=== PATIENT | female | born 1965 | race Caucasian/White ===

== ENCOUNTER 2017-07-24 10:28 | Emergency (ER) | payer OTHER ==
[2017-07-24 10:35] VITALS: BP 127/70
--- NOTE | 2017-07-24 11:04 | UC ---
Throat Pain/Nasal Sky HPI - HPI Summary HPI Summary: ONE WEEK OF PRODUCTIVE COUGH WITH FACIAL PRESSURE, CONGESTION, CHILLS. POST NASAL DRIP. CONCERN FOR SINUS INFECTION - History of Current Complaint Chief Complaint: UCRespiratory Stated Complaint: SINUS Time Seen by Provider: 07/24/17 10:40 Hx Obtained From: Patient Onset/Duration: Gradual Onset, Lasting Weeks, Still Present Severity: Moderate Cough: Productive Associated Signs & Symptoms: Positive: Sinus Discomfort, Nasal Discharge - Epiglottits Risk Factors Epiglottis Risk Factors: Negative - Allergies/Home Medications Allergies/Adverse Reactions: Allergies Allergy/AdvReac Type Severity Reaction Status Date / Time No Known Allergies Allergy Verified 07/24/17 10:35 Home Medications: Home Medications Metoprolol Tartrate TAB* [Lopressor TAB*] 25 mg PO DAILY 07/24/17 [History Confirmed 07/24/17] PMH/Surg Hx/FS Hx/Imm Hx Previously Healthy: Yes - Surgical History Surgical History: Yes Surgery Procedure, Year, and Place: tubal ligation. bladder mesh for urinary incontinence - Family History Known Family History: Negative: Respiratory Disease - Social History Occupation: Employed Full-time Lives: With Family Alcohol Use: Rare Substance Use Type: None Smoking Status (MU): Heavy Every Day Tobacco Smoker Type: Cigarettes Amount Used/How Often: 1/2 - 1 ppd Length of Time of Smoking/Using Tobacco: 30 years Household Exposure Type: Cigarettes Cessation Counseling: Patient Advised to Stop - Immunization History Most Recent Influenza Vaccination: no Most Recent Tetanus Shot: unknown Review of Systems Constitutional: Chills Skin: Negative Eyes: Negative ENT: Nasal Discharge, Sinus Congestion, Sinus Pain/Tenderness Respiratory: Cough Cardiovascular: Negative Gastrointestinal: Negative Genitourinary: Negative Motor: Negative Neurovascular: Negative Musculoskeletal: Negative Neurological: Negative Psychological: Negative All Other Systems Reviewed And Are Negative: Yes Physical Exam Triage Information Reviewed: Yes Appearance: Well-Appearing, No Pain Distress, Well-Nourished Vital Signs: Initial Vital Signs Temp 98.8 F 07/24/17 10:31 Pulse 68 07/24/17 10:31 Resp 16 07/24/17 10:31 BP 127/70 07/24/17 10:31 Pulse Ox 98 07/24/17 10:31 Vital Signs Reviewed: Yes Eye Exam: Normal ENT: Positive: TM bulging, TM dull Dental Exam: Normal Neck exam: Normal Neck: Positive: Supple, Nontender, No Lymphadenopathy Respiratory Exam: Normal Respiratory: Positive: Chest non-tender, Lungs clear, Normal breath sounds, No respiratory distress, No accessory muscle use Cardiovascular Exam: Normal Cardiovascular: Positive: RRR, No Murmur, Pulses Normal Abdominal Exam: Normal Musculoskeletal Exam: Normal Neurological Exam: Normal Psychological Exam: Normal Skin Exam: Normal Throat Pain/Nasal Course/Dx - Differential Dx/Diagnosis Differential Diagnosis/HQI/PQRI: Pharyngitis, Sinusitis, URI Provider Diagnoses: SINUSITIS Discharge - Discharge Plan Condition: Stable Disposition: HOME Prescriptions: Amoxicillin/Clavulanate TAB* [Augmentin TAB 875*] 875 mg PO BID #20 tab Patient Education Materials: Sinusitis (ED) Referrals: Dianne Lucero MD [Primary Care Provider] -
== END 2017-07-24 11:00 | disposition home or self-care (01) ==
LOC: UCCORT 10:28
DX: J32.9 Chronic sinusitis, unspecified (principal); F17.210 Nicotine dependence, cigarettes, uncomplicated
CPT/HCPCS: 99212; G0463

== ENCOUNTER 2018-08-28 19:23 | Emergency (ER) | payer OTHER ==
[2018-08-28 19:52] VITALS: BP 149/82
--- NOTE | 2018-08-28 20:30 | UC ---
Respiratory Complaint HPI - HPI Summary HPI Summary: Pt c/o cough, nasal congestion, generalized malaise X 1 week. Pt states that her cough, and chest congestion are worsening - History of Current Complaint Chief Complaint: UCGeneralIllness Stated Complaint: COUGH,CONGESTION Time Seen by Provider: 08/28/18 20:14 Hx Obtained From: Patient Hx Last Menstrual Period: NONE ?: No Onset/Duration: Gradual Onset, Lasting Days, Still Present, Worse Since Timing: Constant Severity Initially: Mild Severity Currently: Moderate Pain Intensity: 5 Character: Cough: Nonproductive Aggravating Factors: Deep Breaths, Recumbent Position Alleviating Factors: Nothing Associated Signs And Symptoms: Positive: Chills, URI, Nasal Congestion - Risk Factors Pulmonary Embolism Risk Factors: Smoking Cardiac Risk Factors: Smoking Pseudomonas Risk Factors: Negative Tuberculosis Risk Factors: Negative - Allergies/Home Medications Allergies/Adverse Reactions: Allergies Allergy/AdvReac Type Severity Reaction Status Date / Time No Known Allergies Allergy Verified 08/28/18 19:38 Home Medications: Home Medications Benzonatate CAP* [Tessalon 100 MG CAP*] 100 mg PO TID PRN 08/28/18 [History Confirmed 08/28/18] Chlorphenir/Phenyleph/Aspirin [Monik-[place] Plus Cold Tab Eff] 1 tab PO ONCE PRN 08/28/18 [History Confirmed 08/28/18] Dm/Acetaminophen/Doxylamine [Nighttime Cold-Flu Liquid] 2.5 ml PO BEDTIME [History Confirmed 08/28/18] Ergocalciferol (Vitamin D2) [Vitamin D2] 50,000 unit PO SEE INSTRUCTIONS [History Confirmed 08/28/18] PMH/Surg Hx/FS Hx/Imm Hx Previously Healthy: Yes - Surgical History Surgical History: Yes Surgery Procedure, Year, and Place: tubal ligation. bladder mesh for urinary incontinence - Family History Known Family History: Positive: Cardiac Disease Negative: Respiratory Disease - Social History Occupation: Employed Full-time Lives: With Family Alcohol Use: Rare Substance Use Type: None Smoking Status (MU): Heavy Every Day Tobacco Smoker Type: Cigarettes Amount Used/How Often: LESS THAN 1/2 PPD Length of Time of Smoking/Using Tobacco: 30 years Have You Smoked in the Last Year: Yes Household Exposure Type: Cigarettes - Immunization History Most Recent Influenza Vaccination: no Most Recent Tetanus Shot: unknown Vaccination Up to Date: No Review of Systems Constitutional: Chills, Fatigue Skin: Negative Eyes: Negative ENT: Sinus Congestion Respiratory: Shortness Of Breath, Cough Cardiovascular: Negative Gastrointestinal: Negative Genitourinary: Negative Motor: Negative Neurovascular: Negative Musculoskeletal: Negative Neurological: Negative Psychological: Negative Is Patient Immunocompromised?: No All Other Systems Reviewed And Are Negative: Yes Physical Exam Triage Information Reviewed: Yes Appearance: Ill-Appearing Vital Signs: Initial Vital Signs Temp 98.3 F 08/28/18 19:44 Pulse 71 08/28/18 19:44 Resp 20 08/28/18 19:44 BP 149/82 08/28/18 19:44 Pulse Ox 98 08/28/18 19:44 Vital Signs Reviewed: Yes Eye Exam: Normal ENT Exam: Other ENT: Positive: Nasal congestion Dental Exam: Normal Neck exam: Normal Respiratory: Positive: Decreased breath sounds Cardiovascular Exam: Normal Musculoskeletal Exam: Normal Neurological Exam: Normal Psychological Exam: Normal Skin Exam: Normal UC Diagnostic Evaluation - Laboratory O2 Sat by Pulse Oximetry: 98 Respiratory Course/Dx - Differential Dx/Diagnosis Differential Diagnosis/HQI/PQRI: Bronchitis, Influenza Provider Diagnoses: Bronchitis Discharge - Sign-Out/Discharge Documenting (check all that apply): Patient Departure All imaging exams completed and their final reports reviewed: No Studies - Discharge Plan Condition: Stable Disposition: HOME Prescriptions: Albuterol HFA INHALER* [Ventolin HFA Inhaler*] 1 - 2 puff INH Q4H PRN #1 mdi PRN Reason: Sob/Wheezing Azithromycin TAB* [Zithromax TAB (Z-CHARY) 250 mg #6 tabs] 2 tab PO .TODAY, THEN 1 DAILY #1 chary Benzonatate CAP* [Tessalon 100 MG CAP*] 100 mg PO Q8H PRN #30 cap PRN Reason: Cough predniSONE TAB* [Deltasone 10 MG TAB*] 30 mg PO DAILY #12 tab Patient Education Materials: Acute Bronchitis (ED) Referrals: Dianne Lucero MD [Primary Care Provider] - If Needed - Billing Disposition and Condition Condition: STABLE Disposition: Home
== END 2018-08-28 20:40 | disposition home or self-care (01) ==
LOC: UCCORT 19:23
DX: J40 Bronchitis, not specified as acute or chronic (principal); F17.210 Nicotine dependence, cigarettes, uncomplicated
CPT/HCPCS: 99212; G0463

== ENCOUNTER 2019-02-15 17:09 | Emergency (ER) | payer OTHER ==
--- OUTSIDE RECORDS SUMMARY | 2019-02-15 17:18 | XMS REPORT | Continuity of Care Document ---
:1965 External Reference #:[id number] Author Name Mirian Levi Care Team Providers Name Role Phone Dianne Lucero MD Care Team Information Echocardiologist Unavailable Dianne Lucero MD Primary Care Physician Unavailable Payers Date Identification Numbers Payment Provider Subscriber Effective: 2016 Policy Number: [id number] [employer] Medicaid Luz Lara PayID: [id number] [address] [place] [address] Advance Directives Description No Information Available Problems Date Description Provider Status Onset: 12/29/2012 Hypertrophic Obstructive Sam Spain M.D., Active Cardiomyopathy FACC Onset: 04/23/2013 Tobacco user Hao Quintana Active M.[place]. 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 Onset: 12/05/2015 Tinnitus, bilateral Dianne Lucero MD Active Onset: 12/05/2015 Disorder of thyroid gland Dianne Lucero MD Active Onset: 12/05/2015 Obstructive hypertrophic Dianne Lucero MD Active cardiomyopathy Onset: 12/23/2014 [place] thyroiditis Nathaniel Jorgensen MD Active Onset: 11/15/2014 Essential hypertension Nathaniel Jorgensen MD Active Onset: 11/04/2012 Adult health examination Aliza Mims PA Active Onset: 11/04/2012 Hypothyroidism Aliza Mims PA Active Onset: 11/04/2012 Elevated blood-pressure reading Aliza Mims PA Active without diagnosis of hypertension Onset: 11/04/2012 Anxiety state Aliza Mims PA Active Onset: 11/04/2012 Panic disorder 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 General No family members have HCMP Mother Mitral Valve Prolapse Mother Breast Cancer Children 3 First Son Pericarditis and "valve problems" Siblings 4 Grandchildren 2 Paternal Grandmother Stomach Cancer Social History Type Date Description Comments Sex Unknown Marital Status Lives With Significant Other Home Environment Lives With Diet Patient follows no dietary restrictions Occupation Currently Working Work Status Currently Working ADL's/IADL's Independent with all ADL's Cigarette Use Pack Years - 30 Tobacco Use Start: Unknown currently smokes 1/2 Pack Daily Smoking Status Reviewed: 01/13/19 currently smokes 1/2 Pack Daily Smokeless Tobacco Never Used Smokeless Tobacco ETOH Use Rarely consumes alcohol Tobacco Use Start: Unknown Light tobacco smoker (10 or trying to quit fewer cigarettes/day) Recreational Drug Use Denies Drug Use Allergies, Adverse Reactions, Alerts Description No Known Drug Allergies Medications Medication Date Status Form Strength Qnty SIG Indications Ordering Provider Levothyroxine 01/13/20 Active Tablets 25mcg 30tab 1 tab by Jazmine, Sodium 19 s mouth every MD Dianne day Nicotrol 01/13/20 Active Inhaler 10mg 168un inhale and F17.210 Jazmine, 19 its use up to 6 MD Dianne cartridges a day Vitamin D 12/10/19 Active Capsules [id number] 4caps take 1 Jazmine, (Ergocalciferol 18 capsule by MD Dianne ) mouth every week Metoprolol 11/21/20 Active Tablets 25mg 30tab 1 by mouth E55.9 Last, Succinate ER 16 ER 24HR s every Norma evening Hugh , MSN, SOLDERING TECHNICIAN Bupropion HCL 01/20/20 Hx Tablets 150mg 60tab 1 tab by Jazmine, ER (Smoking 18 - ER 12HR s mouth every MD Dianne Det) 07/09/20 day x 7 18 days then 1 tab by mouth twice a day Amoxicillin 01/20/20 Hx Capsules 500mg 20cap 1 tab by Jazmine, 18 - s mouth twice MD Dianne 07/09/20 a day x 10 18 days Bupropion HCL 12/10/19 Hx Tablets 150mg 60tab 1 tab by Jazmine, ER (Smoking 18 - ER 12HR s mouth every MD Dianne Det) 01/20/20 day x3 days 18 then 1 tab by mouth twice a day Golytely 06/21/20 Hx Solution 236gm 4000m drink half Z12.11 Srinivasan 17 - Rec l the evening MD Gautam Unknown before and half the morning of the procedure (1 cup every 10') Dulcolax 06/21/20 Hx Tablets 5mg 4tabs 4 tablets Z12.11 Srinivasan 17 - DR taken a 8pm MD Gautam Unknown the day before the procedure Magnesium 06/21/20 Hx Solution 1.745GM/3 296ml 1 bottle po Z12.11 Srinivasan Citrate 17 - 0ML x one as MD Gautam Unknown directed Hyoscyamine 06/21/20 Hx Tablets 0.125mg 90tab 1 tab by R10.9 Young Sulfate 17 - s mouth three MD Gautam Unknown times a day as needed for abd pain Tessalon Perles 09/13/20 Hx Capsules 100mg 30cap 1 tab by Jazmine, 16 - s mouth every MD Dianne Unknown 8 hours as needed for cough Nasacort 09/13/20 Hx Aerosol 55mcg/Act 32.4m 2 sprays Jazmine, Allergy 24HR 16 - l both MD Dianne Unknown nostrils every day prn Chantix 04/10/20 Hx Tablets 1mg 60tab continuatio F17.200 Hakeementrudy 16 - s n packs - , Sam 12/10/19 1mg by M., M.D., 18 mouth daily FACC Verapamil HCL 03/15/20 Hx Caps ER 120mg 90cap 1 by mouth E55.9 Last, ER 16 - 24HR s every day Norma 10/15/20 Hugh Jasso , MSN, SOLDERING TECHNICIAN Vitamin D 03/12/20 Hx Capsules 2000Unit 1 by mouth Jazmine, 16 - every day MD Dianne Unknown Bisoprolol 03/12/20 Hx Tablets 5mg 30tab 1 tab by E55.9 Last, Fumarate 16 - s mouth every Norma 03/15/20 evening Hugh Jasso , MSN, SOLDERING TECHNICIAN Amoxicillin/Cla 02/07/20 Hx Tablets 875-125mg 20tab Every 12 Unknown vulanate 16 - s Hours Potassium 02/21/20 16 Benzonatate 02/07/20 Hx Capsules 200mg 20cap Every 8 Unknown 16 - s Hours as Unknown Needed prn Cough Metoprolol 01/30/20 Hx Tablets 25mg 60tab 1 by mouth E55.9 Last, Tartrate 16 - s Q hs Onrma 03/12/20 Hugh Jasso , MSN, SOLDERING TECHNICIAN Ergocalciferol 12/13/19 Hx Capsules [id number] 12cap 1 tab by E55.9 Jazmine, 16 - s mouth every MD Dianne Unknown week for 12 weeks then stop and take maintenance over the counter Vitamin D-400 12/05/19 Hx Tablets 400Unit 2 by mouth Jazmine, 16 - every day MD Dianne Unknown Lactase Enzyme 12/05/19 Hx Tablets 9000Unit 90tab 1 tab by Jazmine, Fast Acting 16 - s mouth three MD Dianne Unknown times a day as needed with dairy containing meals Paroxetine HCL 05/16/20 Hx Tablets 10mg 90tab 1 by mouth [place] 15 - s every day os, Unknown MD Nathaniel No Active 01/17/20 Hx Unknown Medications - 01/17/20 15 Vitamin D-3 08/25/20 Hx Tablets 5000Unit 90tab 1 by mouth Castellan 14 - s every day os, 12/05/19 Romero Armstrong MD Levothyroxine Hx Tablets 50mcg 60tab 1 po qd Unknown Sodium 00 - s Unknown Vitamin D Hx Capsules [id number] 1 po qd Unknown 00 - 12/05/19 16 Vitamin D Hx Capsules 50,000Uni 60cap 1 po q week Unknown 00 - ts s Unknown Ra Vitamin D-3 Hx Capsules 5000Unit Unknown - 12/05/19 16 Vitamin D3 Hx Tablets 2000Unit Once Daily Unknown 00 - Unknown Prempro Hx Tablets 0.3-1.5mg 1 daily Oh, 00 - In-Alyssa, 01/13/20 19 Immunizations CPT Code Status Date Vaccine Lot # [id number] Given 12/10/2017 Pneumovax Injection [id number] Given 12/10/2017 Influenza Virus Vaccine Quadrivalent Iiv4 [place] [id number] [id number] Given 12/10/2016 Influenza Virus Vaccine Split Virus Use For [id number] Individual 3Yr Older 18825 Given 05/07/2016 Tdap injection [id number] Given 12/05/2015 Influenza Vaccine (Fluzone) Age 3 And Older [id number] Vital Signs Date Vital Result Comment 01/13/2019 10:14am BP Systolic Sitting Left Arm 114 mmHg BP Diastolic Sitting Left Arm 82 mmHg Body Temperature 97.6 F Heart Rate 67 /min Respiratory Rate 16 /min Height 64 inches 5'4" Weight 168.00 lb BMI (Body Mass Index) 28.8 kg/m2 BSA (Body Surface Area) 1.82 m2 [place] body weight in kilograms 54 kg O2 % BldC Oximetry 96 % Ra 07/14/2018 9:30am BP Systolic Sitting Right Arm 130 mmHg BP Diastolic Sitting Right Arm 80 mmHg Heart Rate 64 /min Respiratory Rate 16 /min Height 64 inches 5'4" Weight 162.00 lb BMI (Body Mass Index) 27.8 kg/m2 BSA (Body Surface Area) 1.79 m2 [place] body weight in kilograms 54 kg 07/09/2018 12:56pm BP Systolic 122 mmHg BP Diastolic 72 mmHg Body Temperature 97.6 F Heart Rate 54 /min Respiratory Rate 18 /min Height 64 inches 5'4" Weight 162.00 lb BMI (Body Mass Index) 27.8 kg/m2 BSA (Body Surface Area) 1.79 m2 [place] body weight in kilograms 54 kg O2 % BldC Oximetry 97 % 01/20/2018 10:34am BP Systolic Sitting Right Arm 153 mmHg BP Diastolic Sitting Right Arm 88 mmHg Body Temperature 98.8 F Heart Rate 79 /min Height 64 inches 5'4" Weight 165.00 lb BMI (Body Mass Index) 28.3 kg/m2 BSA (Body Surface Area) 1.80 m2 [place] body weight in kilograms 54 kg 12/16/2017 9:15am BP Systolic Sitting Right Arm 132 mmHg BP Diastolic Sitting Right Arm 84 mmHg Heart Rate 68 /min Respiratory Rate 14 /min Height 64 inches 5'4" Weight 164.00 lb BMI (Body Mass Index) 28.1 kg/m2 BSA (Body Surface Area) 1.80 m2 [place] body weight in kilograms 54 kg 12/10/2017 9:16am BP Systolic Sitting Right Arm 128 mmHg BP Diastolic Sitting Right Arm 78 mmHg Body Temperature 98.3 F Heart Rate 58 /min Height 64 inches 5'4" Weight 164.00 lb BMI (Body Mass Index) 28.1 kg/m2 BSA (Body Surface Area) 1.80 m2 [place] body weight in kilograms 54 kg 06/21/2017 8:41am BP Systolic Sitting Left Arm 118 mmHg BP Diastolic Sitting Left Arm 72 mmHg Heart Rate 54 /min Respiratory Rate 16 /min Height 64 inches 5'4" Weight 161.00 lb BMI (Body Mass Index) 27.6 kg/m2 BSA (Body Surface Area) 1.78 m2 [place] body weight in kilograms 54 kg 06/10/2017 9:15am BP Systolic 136 mmHg BP Diastolic 77 mmHg Body Temperature 97.4 F Heart Rate 54 /min Respiratory Rate 16 /min Height 64 inches 5'4" Weight 160.00 lb BMI (Body Mass Index) 27.5 kg/m2 BSA (Body Surface Area) 1.78 m2 [place] body weight in kilograms 54 kg O2 % BldC Oximetry 96 % 05/13/2017 9:48am BP Systolic Sitting Right Arm 132 mmHg BP Diastolic Sitting Right Arm 80 mmHg Heart Rate 55 /min Respiratory Rate 18 /min Height 64 inches 5'4" Weight 160.00 lb BMI (Body Mass Index) 27.5 kg/m2 BSA (Body Surface Area) 1.78 m2 [place] body weight in kilograms 54 kg 12/10/2016 10:18am BP Systolic 122 mmHg BP Diastolic 74 mmHg Heart Rate 56 /min Height 64 inches 5'4" Weight 160.00 lb BMI (Body Mass Index) 27.5 kg/m2 BSA (Body Surface Area) 1.78 m2 11/12/2016 8:52am BP Systolic Sitting Left Arm 126 mmHg BP Diastolic Sitting Left Arm 78 mmHg Heart Rate 52 /min Respiratory Rate 16 /min Height 64 inches 5'4" Weight 160.00 lb BMI (Body Mass Index) 27.5 kg/m2 BSA (Body Surface Area) 1.78 m2 10/15/2016 8:37am BP Systolic Sitting Left Arm 136 mmHg BP Diastolic Sitting Left Arm 82 mmHg Heart Rate 60 /min Respiratory Rate 16 /min Height 64 inches 5'4" Weight 160.00 lb BMI (Body Mass Index) 27.5 kg/m2 BSA (Body Surface Area) 1.78 m2 09/13/2016 2:33pm BP Systolic Sitting Right Arm 122 mmHg BP Diastolic Sitting Right Arm 72 mmHg Body Temperature 99.1 F Heart Rate 68 /min Height 64 inches 5'4" Weight 161.00 lb BMI (Body Mass Index) 27.6 kg/m2 BSA (Body Surface Area) 1.78 m2 O2 % BldC Oximetry 92 % 05/07/2016 8:49am BP Systolic Standing Resting Right Arm 142 mmHg BP Diastolic Standing Resting Right Arm 82 mmHg Height 64 inches 5'4" Weight 164.50 lb BMI (Body Mass Index) 28.2 kg/m2 BSA (Body Surface Area) 1.80 m2 04/10/2016 8:30am BP Systolic Sitting Left Arm 140 mmHg BP Diastolic Sitting Left Arm 74 mmHg Heart Rate 68 /min Respiratory Rate 16 /min Height 64 inches 5'4" Weight 169.00 lb BMI (Body Mass Index) 29.0 kg/m2 BSA (Body Surface Area) 1.82 m2 03/12/2016 8:23am BP Systolic Sitting Left Arm 120 mmHg BP Diastolic Sitting Left Arm 78 mmHg Heart Rate 64 /min Respiratory Rate 16 /min Height 64 inches 5'4" Weight 167.00 lb BMI (Body Mass Index) 28.7 kg/m2 BSA (Body Surface Area) 1.81 m2 01/30/2016 9:01am BP Systolic Sitting Left Arm 110 mmHg BP Diastolic Sitting Left Arm 62 mmHg Heart Rate 74 /min Height 64 inches 5'4" Weight 168.00 lb BMI (Body Mass Index) 28.8 kg/m2 BSA (Body Surface Area) 1.82 m2 12/05/2015 1:33pm BP Systolic Sitting Left Arm 134 mmHg BP Diastolic Sitting Left Arm 70 mmHg Heart Rate 62 /min Height 64.5 inches 5'4.50" Weight 166.31 lb BMI (Body Mass Index) 28.1 kg/m2 BSA (Body Surface Area) 1.82 m2 O2 % BldC Oximetry 98 % 05/16/2015 8:51am BP Systolic 110 mmHg BP Diastolic 80 mmHg Weight 158.00 lb 01/17/2015 8:46am BP Systolic Sitting Right Arm 98 mmHg BP Diastolic Sitting Right Arm 60 mmHg Heart Rate 60 /min Respiratory Rate 16 /min Height 64 inches 5'4" Weight 155.00 lb BMI (Body Mass Index) 26.6 kg/m2 BSA (Body Surface Area) 1.76 m2 12/23/2014 1:45pm BP Systolic 110 mmHg BP Diastolic 68 mmHg Weight 158.00 lb 11/15/2014 3:57pm BP Systolic 100 mmHg BP Diastolic 74 mmHg Body Temperature 97.7 F Heart Rate 64 /min Respiratory Rate 16 /min Height 63.50 inches Weight 155.00 lb BMI (Body Mass Index) 27.0 kg/m2 08/25/2014 9:56am BP Systolic 90 mmHg BP Diastolic 62 mmHg Weight 156.00 lb 02/08/2014 8:08am BP Systolic 116 mmHg BP Diastolic 74 mmHg Weight 154.00 lb 01/06/2014 9:05am BP Systolic Sitting Left Arm 116 mmHg BP Diastolic Sitting Left Arm 82 mmHg Heart Rate 80 /min Respiratory Rate 16 /min Height 64 inches 5'4" Weight 157.00 lb BMI (Body Mass Index) 26.9 kg/m2 BSA (Body Surface Area) 1.77 m2 11/09/2013 2:50pm BP Systolic 100 mmHg BP Diastolic 80 mmHg Body Temperature 97.5 F Heart Rate 60 /min Respiratory Rate 14 /min Height 63.75 inches Weight 151.00 lb BMI (Body Mass Index) 26.1 kg/m2 07/06/2013 1:36pm Weight 151.00 lb 07/06/2013 8:39am BP Systolic Sitting Right Arm 120 mmHg BP Diastolic Sitting Right Arm 74 mmHg Heart Rate 70 /min Respiratory Rate 16 /min Height 64 inches 5'4" Weight 152.00 lb BMI (Body Mass Index) 26.1 kg/m2 BSA (Body Surface Area) 1.74 m2 04/23/2013 8:33am BP Systolic Sitting Right Arm 114 mmHg BP Diastolic Sitting Right Arm 66 mmHg Heart Rate 61 /min Respiratory Rate 18 /min Height 64 inches 5'4" Weight 152.00 lb BMI (Body Mass Index) 26.1 kg/m2 BSA (Body Surface Area) 1.74 m2 04/13/2013 11:30am BP Systolic 108 mmHg BP Diastolic 80 mmHg Weight 152.00 lb 12/29/2012 10:07am BP Systolic Sitting Right Arm 130 mmHg BP Diastolic Sitting Right Arm 78 mmHg Heart Rate 64 /min Respiratory Rate 16 /min Height 64 inches 5'4" Weight 155.00 lb BMI (Body Mass Index) 26.6 kg/m2 11/11/2012 9:45am BP Systolic Sitting Right Arm 126 mmHg BP Diastolic Sitting Right Arm 68 mmHg Heart Rate 61 /min Respiratory Rate 16 /min Height 64 inches 5'4" Weight 151.00 lb BMI (Body Mass Index) 25.9 kg/m2 10/28/2012 8:37am BP Systolic 138 mmHg BP Diastolic 90 mmHg Body Temperature 98.6 F Heart Rate 78 /min Respiratory Rate 12 /min Height 64 inches Weight 155.00 lb BMI (Body Mass Index) 26.6 kg/m2 Results Test Date Facility Test Result H/L Range Note Comprehensive Metabolic 01/06/2019 [facility] Glucose 106 mg/dL N 74-106 1 Panel [address] [place], [place] [id number] [phone] BUN 22 mg/dL High 7-18 Creatinine 0.9 mg/dL 0.6-1.3 Glom Filtration Rate, Estimate >60 mL/min >60 If >60 mL/min >60 2 BUN/Creat 24.4 ratio Sodium 141 mmol/L N 136-145 Potassium 4.4 mmol/L N 3.5-5.1 Chloride 109 mmol/L High 98-107 Carbon Dioxide 25 mmol/L N 21-32 Anion Gap 7 mEq/L Low 8-16 Calcium 8.6 mg/dL N 8.5-10.1 Total Protein 7.1 g/dL N 6.4-8.2 Albumin 3.9 g/dL N 3.4-5.0 Globulin 3.2 g/dL N 1.9-4.3 Alb/Glob 1.2 ratio Bilirubin,Total 0.5 mg/dL N 0.2-1.0 Sgot/Ast 17 U/L N 15-37 SGPT/Alt 22 U/L N 12-78 Alkaline Phosphatase 55 U/L N 45-117 CBS W/Automated Diff 01/06/2019 [facility] White Blood 6.2 K/uL N 3.1-10.[address] [place] [address] [phone] Red Blood Count 5.01 M/uL N 3.90-5.40 Hemoglobin 15.1 gm/dL N 11.6-15.8 Hematocrit 44.7 % N 36.0-46.1 Mean Cell Volume 89.2 fl N 80.9-99.0 Mean Corpuscular HGB 30.1 pg N 25.9-32.7 Mean Corpuscular HGB Conc 33.8 g/dL N 30.8-34.3 Platelet Count 150 K/uL Low 155-360 Red Cell Distri Width SD 42.1 fl N 36-47 Red Cell Distri Width %CV 13.3 % N 11.7-14.4 Mean Platelet Volume 11.7 fL N 8.9-12.4 Neut% 51.8 % N 40.4-72.8 Lymph % 36.5 % N 20.0-42.0 [place] % 9.9 % N 4.3-13.2 Eo% 1.5 % N 0.0-6.6 Bas% 0.3 % N 0.0-1.1 Neut# 3.21 K/uL N 1.8-7.0 Lymph # 2.26 K/uL N 1.0-4.0 [place] # 0.61 K/uL N 0.3-0.9 Eos # 0.09 K/uL N 0.0-0.5 Baso # 0.02 K/uL N 0.0-0.1 Laboratory test 01/06/2019 [facility] Thyroid Stim 3.79 uIU/mL N 0.30-4.[address] [place] [address] [phone] Free T4 0.93 ng/dL N 0.76-1.46 Vitamin D,25-Hydroxy 15.7 ng/mL Low 30.0-100.0 3 Laboratory 06/06/2018 [facility] Vitamin 21.1 Low 30.0-100.0 4, 5 test finding [address] D,25-Hydroxy ng/[place] [address] [phone] Free T4 1.03 ng/dL N 0.76-1.46 Thyroid Stim Hormone 2.37 uIU/mL N 0.30-4.20 CBS W/Automated Diff 06/06/2018 [facility] White Blood 6.8 K/uL N 3.1-10.[address] [place] [address] [phone] Red Blood Count 4.89 M/uL N 3.90-5.40 Hemoglobin 15.3 gm/dL N 11.6-15.8 Hematocrit 43.9 % N 36.0-46.1 Mean Cell Volume 89.8 fl N 80.9-99.0 Mean Corpuscular HGB 31.3 pg N 25.9-32.7 Mean Corpuscular HGB Conc 34.9 g/dL High 30.8-34.3 Platelet Count 140 K/uL Low 155-360 Red Cell Distri Width SD 42.4 fl N 3-47 Red Cell Distri Width %CV 13.2 % N 11.7-14.4 Mean Platelet Volume 12.6 fL High 8.9-12.4 Neut% 56.5 % N 40.4-72.8 Lymph % 34.0 % N 20.0-42.0 [place] % 8.0 % N 4.3-13.2 Eo% 1.2 % N 0.0-6.6 Bas% 0.3 % N 0.0-1.1 Neut# 3.84 K/uL N 1.8-7.0 Lymph # 2.31 K/uL N 1.0-4.0 [place] # 0.54 K/uL N 0.3-0.9 Eos # 0.08 K/uL N 0.0-0.5 Baso # 0.02 K/uL N 0.0-0.1 Comprehensive Metabolic 06/06/2018 [facility] Glucose 97 mg/dL N 74-[address] [place] [address] [phone] BUN 16 mg/dL N 7-18 Creatinine 0.7 mg/dL N 0.6-1.3 Glom Filtration Rate, Estimate >60 mL/min >60 If >60 mL/min >60 6 BUN/Creat 22.8 ratio Sodium 141 mmol/L N 136-145 Potassium 4.3 mmol/L N 3.5-5.1 Chloride 109 mmol/L High 98-107 Carbon Dioxide 26 mmol/L N 21-32 Anion Gap 6 mEq/L Low 8-16 Calcium 8.7 mg/dL N 8.5-10.1 Total Protein 6.8 g/dL N 6.4-8.2 Albumin 4.1 g/dL N 3.4-5.0 Globulin 2.7 g/dL N 1.9-4.3 Alb/Glob 1.5 ratio Bilirubin,Total 0.5 mg/dL N 0.2-1.0 Sgot/Ast 15 U/L N 15-37 SGPT/Alt 23 U/L N 12-78 Alkaline Phosphatase 48 U/L N 45-117 LDL Cholesterol Profile 06/06/2018 [facility] Cholesterol 159 mg/dL <200 7 [address] [place], [place] [id number] [phone] Triglycerides 112 mg/dL <150 8 HDL Cholesterol 46 mg/dL >40 9 LDL-Cholesterol 91 mg/dL < 100 10 Comprehensive Metabolic 12/03/2017 [facility] Glucose 102 mg/dL N 74-106 11 Panel [address] [place], [place] [id number] [phone] BUN 19 mg/dL High 7-18 Creatinine 0.8 mg/dL N 0.6-1.3 Glom Filtration Rate, Estimate >60 mL/min >60 If >60 mL/min >60 12 BUN/Creat 23.7 ratio Sodium 142 mmol/L N 136-145 Potassium 4.3 mmol/L N 3.5-5.1 Chloride 107 mmol/L N 98-107 Carbon Dioxide 27 mmol/L N 21-32 Anion Gap 8 mEq/L N 8-16 Calcium 9.3 mg/dL N 8.5-10.1 Total Protein 7.0 g/dL N 6.4-8.2 Albumin 4.2 g/dL N 3.4-5.0 Globulin 2.8 g/dL N 1.9-4.3 Alb/Glob 1.5 ratio Bilirubin,Total 0.5 mg/dL N 0.2-1.0 Sgot/Ast 14 U/L Low 15-37 13 SGPT/Alt 23 U/L N 12-78 Alkaline Phosphatase 54 U/L N 45-117 CBS W/Automated Diff 12/03/2017 [facility] White Blood 7.5 K/uL N 3.1-10.[address] [place] [address] [phone] Red Blood Count 5.01 M/uL N 3.90-5.40 Hemoglobin 15.1 gm/dL N 11.6-15.8 Hematocrit 44.3 % N 36.0-46.1 Mean Cell Volume 88.4 fl N 80.9-99.0 Mean Corpuscular HGB 30.1 pg N 25.9-32.7 Mean Corpuscular HGB Conc 34.1 g/dL N 30.8-34.3 Platelet Count 149 K/uL Low 155-360 Red Cell Distri Width SD 42.4 fl N 3-47 Red Cell Distri Width %CV 13.3 % N 11.7-14.4 Mean Platelet Volume 12.8 fL High 8.9-12.4 Neut% 53.4 % N 40.4-72.8 Lymph % 37.6 % N 20.0-42.0 [place] % 7.5 % N 4.3-13.2 Eo% 1.1 % N 0.0-6.6 Bas% 0.4 % N 0.0-1.1 Neut# 4.00 K/uL N 1.8-7.0 Lymph # 2.81 K/uL N 1.0-4.0 [place] # 0.56 K/uL N 0.3-0.9 Eos # 0.08 K/uL N 0.0-0.5 Baso # 0.03 K/uL N 0.0-0.1 Laboratory 12/03/2017 [facility] Vitamin 17.0 Low 30.0-100.0 14 test finding [address] D,25-Hydroxy ng/[place] [address] [phone] Laboratory 06/24/2017 [facility] Sedimentation 1 mm/hr N 0-30 15, test finding [address] Rate [address] [place] [address] [phone] Calprotectin, Fecal < 16 ug/g 0-120 17 Fecal Fat, Qualitative 06/24/2017 [facility] Fats, Neutral Normal . [address] [place] [address] [phone] Fats, Total Normal . 19 Laboratory test 06/24/2017 [facility] C-Reactive < 2.9 mg/L <3.[address] Protein,[place] [address] [phone] Pancreatic Elastase (Pe-1) > 500.0 ug/g >200 20 Ova & Parasite 06/23/2017 [facility] Cryptosporidium NEGATIVE FOR 21 Antigen Screen [address] Specific Ag CRY <[place] [address] NOTE> [phone] Giardia Specific Antigen NEGATIVE FOR SIL <SEE NOTE> 22 Stool Culture 06/23/2017 [facility] Stool Culture NO ENTERIC PATHO [address] <SEE NOTE> [place] [address] [phone] . ................ <SEE NOTE> N 24 Note: INCLUDES TESTING <SEE NOTE> N 25 . PLESIOMONAS, CAM <SEE NOTE> N 26 . ................ <SEE NOTE> N 27 . YERSINIA AND VIB <SEE NOTE> N 28 . SHOULD BE REQUES <SEE NOTE> N 29 Shiga Toxin 1 Antigen SHIGA TOXIN 1 NO <SEE NOTE> 30 Shiga Toxin 2 Antigen SHIGA TOXIN 2 NO <SEE NOTE> 31 Laboratory test 06/23/2017 [facility] C. Difficile C-DIFF TOXIN [address] Toxin B By PCR B: <[place] [address] NOTE> [phone] CBS W/Automated 05/31/2017 [facility] White Blood 7.3 K/uL N 3.1-10 [address] Count [address] [place] [address] [phone] Red Blood Count 4.78 M/uL N 3.90-5.40 Hemoglobin 14.7 gm/dL N 11.6-15.8 Hematocrit 42.6 % N 36.0-46.1 Mean Cell Volume 89.1 fl N 80.9-99.0 Mean Corpuscular HGB 30.8 pg N 25.9-32.7 Mean Corpuscular HGB Conc 34.5 g/dL High 30.8-34.3 Platelet Count 140 K/uL Low 150-400 Red Cell Distri Width SD 41.6 fl N 3-47 Red Cell Distri Width %CV 13.1 % N 11.7-14.4 Mean Platelet Volume 13.2 fL High 8.9-12.4 Neut% 54.9 % N 40.4-72.8 Lymph % 37.1 % N 20.0-42.0 [place] % 6.5 % N 4.3-13.2 Eo% 1.1 % N 0.0-6.6 Bas% 0.4 % N 0.0-1.1 Neut# 3.99 K/uL N 1.8-7.0 Lymph # 2.70 K/uL N 1.0-4.0 [place] # 0.47 K/uL N 0.3-0.9 Eos # 0.08 K/uL N 0.0-0.5 Baso # 0.03 K/uL N 0.0-0.1 Comprehensive Metabolic 05/31/2017 [facility] Glucose 94 mg/dL N 74-106 Panel [address] [place] [address] [phone] BUN 16 mg/dL N 7-18 Creatinine 0.8 mg/dL N 0.6-1.3 Glom Filtration Rate, Estimate >60 mL/min >60 If >60 mL/min >60 34 BUN/Creat 20.0 ratio Sodium 141 mmol/L N 136-145 Potassium 4.3 mmol/L N 3.5-5.1 Chloride 109 mmol/L High 98-107 Carbon Dioxide 23 mmol/L N 21-32 Anion Gap 9 mEq/L N 8-16 Calcium 8.6 mg/dL N 8.5-10.1 Total Protein 6.9 g/dL N 6.4-8.2 Albumin 4.1 g/dL N 3.4-5.0 Globulin 2.8 g/dL N 1.9-4.3 Alb/Glob 1.5 ratio Bilirubin,Total 0.3 mg/dL N 0.2-1.0 Sgot/Ast 18 U/L N 15-37 SGPT/Alt 21 U/L N 12-78 Alkaline Phosphatase 65 U/L N 45-117 LDL Cholesterol Profile 05/31/2017 [facility] Cholesterol 180 mg/dL <200 35 [address] [place] [address] [phone] Triglycerides 151 mg/dL High <150 36 HDL Cholesterol 52 mg/dL >40 37 LDL-Cholesterol 98 mg/dL < 100 38 Laboratory 05/31/2017 [facility] Vitamin 17.2 Low 30.0-100.0 39 test finding [address] D,25-Hydroxy ng/[place] [address] [phone] Laboratory 02/07/2016 N2N/CCD Import Blood Gas 61 test finding Patient Heart Rate FiO2 21 21-100 Miscellaneous Test Comment 440 Oxygen Saturation (Pulse Oximetry) 88 Low 93-98 Laboratory test finding 02/06/2016 N2N/CCD Import Blood Gas Patient Resting Status Blood Gas Position Sitting Oxygen Saturation (Pulse Oximetry) 95 93-98 Laboratory test 12/06/2015 N2N/CCD Import Basophils # (Auto) 0.03 0.0- 0.1 finding Basophils (%) (Auto) 0.5 0.0-1.1 Eosinophils # (Auto) 0.14 0.0-0.5 Eosinophils (%) (Auto) 2.3 0.0-6.6 Lymphocytes # (Auto) 2.13 1.8-7.0 Lymphocytes (%) (Auto) 34.5 17.0-46.1 Monocytes # (Auto) 0.47 0.3-0.9 Monocytes (%) (Auto) 7.6 4.3-13.2 Neutrophils # (Auto) 3.41 1.8-7.0 Neutrophils (%) (Auto) 55.1 40.4-72.8 RDW Coefficient of Variation 12.7 11.7-14.4 Red Cell Distribution Width 39.8 3-47 Sodium Level 140 136-145 Comprehensive Metabolic 12/06/2015 [facility] Glucose 97 mg/dL 74-106 Panel [address] ZAHIDA [place], [place] [id number] [phone] BUN 18 mg/dL 7-18 Creatinine 0.9 mg/dL 0.6-1.3 Glom Filtration Rate, Estimate >60 mL/min >60 If >60 mL/min >60 40 BUN/Creat 20.0 ratio Sodium 140 mmol/L 136-145 Potassium 4.3 mmol/L 3.5-5.1 Chloride 108 mmol/L High 98-107 Carbon Dioxide 27 mmol/L 21-32 Anion Gap 5 mEq/L Low 8-16 Calcium 8.5 mg/dL 8.5-10.1 Total Protein 7.0 g/dL 6.4-8.2 Albumin 3.9 g/dL 3.4-5.0 Globulin 3.1 g/dL 1.9-4.3 Alb/Glob 1.3 ratio Bilirubin,Total 0.7 mg/dL 0.2-1.0 Sgot/Ast 17 U/L 15-37 SGPT/Alt 29 U/L 12-78 Alkaline Phosphatase 66 U/L 45-117 CBC W/Automated Diff 12/06/2015 [facility] White Blood 6.2 K/uL 3.1-10.[address] [place] [address] [phone] Red Blood Count 4.92 M/uL 3.90-5.40 Hemoglobin 14.9 gm/dL 11.6-15.8 Hematocrit 43.0 % 36.0-46.1 Mean Cell Volume 87.4 fl 80.9-99.0 Mean Corpuscular HGB 30.3 pg 25.9-32.7 Mean Corpuscular HGB Conc 34.7 g/dL High 30.8-34.3 Platelet Count 155 K/uL 155-360 Red Cell Distri Width SD 39.8 fl 3-47 Red Cell Distri Width %CV 12.7 % 11.7-14.4 Mean Platelet Volume 11.4 fL 8.9-12.4 Neut% 55.1 % 40.4-72.8 Lymph % 34.5 % 17.0-46.1 [place] % 7.6 % 4.3-13.2 Eo% 2.3 % 0.0-6.6 Bas% 0.5 % 0.0-1.1 Neut# 3.41 K/uL 1.8-7.0 Lymph # 2.13 K/uL 1.8-7.0 [place] # 0.47 K/uL 0.3-0.9 Eos # 0.14 K/uL 0.0-0.5 Baso # 0.03 K/uL 0.0-0.1 LDL Cholesterol Profile 12/06/2015 [facility] Cholesterol 194 mg/dL <[address] [place] [address] [phone] Triglycerides 126 mg/dL <150 42 HDL Cholesterol 55 mg/dL >40 43 LDL-Cholesterol 114 mg/dL < 100 44 Laboratory 12/06/2015 [facility] Vitamin 15.6 Low 30.0-100.0 45 test finding [address] ZAH[address] D,25-Hydroxy ng/[place] [address] [phone] CBC 12/24/2014 N2N/CCD Import Bas% 0.6 % 0.0-1.1 W/Automated Diff Baso # 0.03 K/uL 0.0-0.1 Eo% 1.3 % 0.0-6.6 Eos # 0.07 K/uL 0.0-0.5 Hematocrit 45.9 % 36.0-46.1 Hemoglobin 15.7 gm/dL 11.6-15.8 Lymph # 2.11 K/uL 0.8-3.4 Lymph % 39.7 % 17.0-46.1 Mean Cell Volume 85.8 fl 80.9-99.0 Mean Corpuscular HGB 29.3 pg 25.9-32.7 Mean Corpuscular HGB Conc 34.2 g/dL 30.8-34.3 Mean Platelet Volume 12.5 fL High 8.9-12.4 [place] # 0.39 K/uL 0.3-0.9 [place] % 7.3 % 4.3-13.2 Neut# 2.71 K/uL 1.0-7.0 Neut% 51.1 % 40.4-72.8 Platelet Count 161 K/uL 155-360 Red Blood Count 5.35 M/uL 3.90-5.40 Red Cell Distri Width %CV 13.0 % 11.7-14.4 Red Cell Distri Width SD 39.9 fl 3-47 White Blood Count 5.3 K/uL 3.1-10.7 Laboratory test 12/24/2014 N2N/CCD Import Anti-Dna Antibody <1 Iu/ml 0- 9 46 finding ([place]) Antichromatin Antibodies <0.2 0.0-0.9 Ferritin 47.0 ng/mL 8-252 Free T3 4.25 pg/mL High 2.18-3.98 Free T4 1.22 ng/dL 0.76-1.46 [place] Screen (Heterophile) Negative Negative TAXATION ACCOUNTANT Antibody <0.2 0.0-0.9 Ra Latex Turbid. 9.6 IU/mL 0.0-13.9 Rheumatoid Factor Screen < 10.0 Iu/ml 0.0-15.0 SM Antibody <0.2 0.0-0.9 Sjogrens Antibodies (SSB) <0.2 0.0-0.9 47 Sjogrens Antibodies (Ssa) <0.2 0.0-0.9 TSH Reflex FT4 and/or FT3 < 0.01 uIU/mL Low 0.36-3.74 48 Uric Acid 4.6 mg/dL 2.6-6.0 Vitamin D,25-Hydroxy 20.0 ng/mL Low 30.0-100.0 49 Comprehensive Metabolic Panel 12/24/2014 N2N/CCD Import Alb/Glob 1.2 ratio Albumin 3.6 g/dL 3.4-5.0 Alkaline Phosphatase 68 U/L 45-117 Anion Gap 10 mEq/L 8-16 BUN 19 mg/dL High 7-18 BUN/Creat 21.1 ratio Bilirubin,Total 0.4 mg/dL 0.2-1.0 Calcium 8.9 mg/dL 8.5-10.1 Carbon Dioxide 25 mmol/L 21-32 Chloride 111 mmol/L High 98-107 Creatinine 0.9 mg/dL 0.6-1.3 Globulin 3.1 g/dL 1.9-4.3 Glom Filtration Rate, Estimate >60 mL/min >60 Glucose 94 mg/dL 74-106 If >60 mL/min >60 50 Potassium 4.2 mmol/L 3.5-5.1 SGPT/Alt 31 U/L 12-78 Sgot/Ast 20 U/L 15-37 Sodium 142 mmol/L 136-145 Total Protein 6.7 g/dL 6.4-8.2 Glycohemoglobin A1c 12/24/2014 N2N/CCD Import Glycohemoglobin (A1c) 5.7 % 4.2-6.3 51 eAG 117 mg/dL Vitamin B12 And Folate 12/24/2014 N2N/CCD Import Folic Acid 17.1 ng/mL 3.1-17.5 Vitamin B12 359 pg/mL 193-986 52 1 E07.9, I42.1, E55.9 2 Note: Persistent reduction for 3 months or more in an eGFR <60 mL/min/1.73 m2 defines CKD. Patients with eGFR values >/=60 mL/min/1.73 m2 may also have CKD if evidence of persistent proteinuria is present. The original MDRD equation for estimated GFR is not valid for patients less than 18 years of age. Additional information may be found at www.kdoqi.org. 3 Vitamin D deficiency has been defined by the [place] and an Endocrine Society practice guideline as a level of serum 25-OH vitamin D less than 20 ng/mL (1,2). The Endocrine Society went on to further define vitamin D insufficiency as a level between 21 and 29 ng/mL (2). 1. IOM ([place] [employer]). 2010. Dietary reference intakes for calcium and D. [place]: The National Academies Press. 2. Jacquie Mai, Frederick BHAT et al. Evaluation, treatment, and prevention of vitamin D deficiency: an Endocrine Society clinical practice guideline. JCEM. 2010; 96(7):1911-30. Performed at: RN - [facility] [address] [id number] Client Account Manager: Louann Lewis MD, Phone: [phone] 4 E55.9 F17.210 F17.210 I42.1 E55.9 F17.210 I42.1 E07.9 I42.1 5 Vitamin D deficiency has been defined by the [place] [employer] and an Endocrine Society practice guideline as a level of serum 25-OH vitamin D less than 20 ng/mL (1,2). The Endocrine Society went on to further define vitamin D insufficiency as a level between 21 and 29 ng/mL (2). 1. IOM ([place] [employer]). 2010. Dietary reference intakes for calcium and D. [place]: The National Academies Press. 2. Jacquie Mai, Frederick BHAT, et al. Evaluation, treatment, and prevention of vitamin D deficiency: an Endocrine Society clinical practice guideline. JCEM. 2010; 96(7):1911-30. Performed at: RN - [facility] [address] [id number] Client Account Manager: Louann Lewis MD, Phone: [phone] Note: Persistent reduction for 3 months or more in an eGFR <60 mL/min/1.73 m2 defines CKD. Patients with eGFR values >/=60 mL/min/1.73 m2 may also have CKD if evidence of persistent proteinuria is present. The original MDRD equation for estimated GFR is not valid for patients less than 18 years of age. Additional information may be found at www.kdoqi.org. 7 Reference Guidelines*: Desirable: ........... < 200 mg/dL Borderline High: ..... 200-239 mg/dL High: ................ >=240 mg/dL * The National Cholesterol Education Program (NCEP) 8 Reference Guidelines*: Normal: ............. < 150 mg/dL Borderline High: .... 150-199 mg/dL High: ............... 200-499 mg/dL Very High: .......... > 500 mg/dL * Source: National Cholesterol Education Program (NCEP) 9 Reference Guidelines*: Low HDL: ..... < 40 mg/dL Normal: ..... 40-60 mg/dL Desirable: ... > 60 mg/dL *The National Cholesterol Education Program(NCEP) 10 Reference Guidelines*: Optimal:........... <100 mg/dL Near Optimal....... 100-129 mg/dL Borderline High.... 130-159 mg/dL High............... 160-189 mg/dL Very High.......... >=190 mg/dL * Source: National Cholesterol Education Program (NCEP) 11 E55.9 R19.7 I47.1 12 Note: Persistent reduction for 3 months or more in an eGFR <60 mL/min/1.73 m2 defines CKD. Patients with eGFR values >/=60 mL/min/1.73 m2 may also have CKD if evidence of persistent proteinuria is present. The original MDRD equation for estimated GFR is not valid for patients less than 18 years of age. Additional information may be found at www.kdoqi.org. 13 Values below the stated reference ranges of AST and ALT can be seen in normal populations. Clinical correlation is suggested. 14 Vitamin D deficiency has been defined by the [place] [employer] and an Endocrine Society practice guideline as a level of serum 25-OH vitamin D less than 20 ng/mL (1,2). The Endocrine Society went on to further define vitamin D insufficiency as a level between 21 and 29 ng/mL (2). 1. IOM ([place] [employer]). 2010. Dietary reference intakes for calcium and D. [place]: The National Academies Press. 2. Donita MF, Jacquie CARMEN, Frederick BHAT, et al. Evaluation, treatment, and prevention of vitamin D deficiency: an Endocrine Society clinical practice guideline. JCEM. 2010; 96(7):1911-30. Performed at: [address] [id number] Client Account Manager: Louann Lewis MD, Phone: [phone] 15 R19.4 16 Method: Sediplast Modified Westergren 17 Concentration Interpretation Follow-Up <16 - 50 ug/g Normal None >50 -120 ug/g Borderline Re-evaluate in 4-6 weeks >120 ug/g Abnormal Repeat as clinically indicated 18 Normal (<60 Droplets/HPF) 19 Normal (<100 Droplets/HPF) 20 INFCE Result Units: ug Elast./g Severe Pancreatic Insufficiency: <100 Moderate Pancreatic Insufficiency: 100 - 200 Normal: >200 Performed at: [address] [id number] Client Account Manager: Louann Lewis MD, Phone: [phone] Performed at: [address] [id number] Client Account Manager: Jacob Partida MD, Phone: [phone] 21 NEGATIVE FOR CRYPTOSPORIDIUM SPECIFIC ANTIGEN 22 NEGATIVE FOR GIARDIA SPECIFIC ANTIGEN. The specimen will be held for 5 days. Additional testing may be performed upon request if the antigen tests are negative, and the patient is still symptomatic or has traveled to an endemic region. Method: Alere Quik Chek Rapid Membrane Enzyme Immunoassay 23 NO ENTERIC PATHOGENS ISOLATED 24 ................................................... 25 INCLUDES TESTING FOR SALMONELLA, SHIGELLA, AEROMONAS, 26 PLESIOMONAS, CAMPYLOBACTER, AND E. COLI 0157:H7 27 ................................................... 28 YERSINIA AND VIBRIO ARE NOT ROUTINELY SCREENED FOR AND 29 SHOULD BE REQUESTED SEPARATELY 30 SHIGA TOXIN 1 NOT DETECTED 31 SHIGA TOXIN 2 NOT DETECTED Method: ImmunoCard STAT/EHEC Rapid Immunochromatographic Assay 32 C-DIFF TOXIN B: NEGATIVE 027 NAP1 B1: NEGATIVE NOTE: IF REFLEX CULTURE FOR KLEBSIELLA OXYTOCA IS CLINICALLY INDICATED, PLEASE CONTACT THE [facility] ([phone]) WITHIN 3 DAYS OF THIS REPORT Testing Performed by: [place] [address] 33 I42.1 M81.8 34 Note: Persistent reduction for 3 months or more in an eGFR <60 mL/min/1.73 m2 defines CKD. Patients with eGFR values >/=60 mL/min/1.73 m2 may also have CKD if evidence of persistent proteinuria is present. The original MDRD equation for estimated GFR is not valid for patients less than 18 years of age. Additional information may be found at www.kdoqi.org. 35 Reference Guidelines*: Desirable: ........... < 200 mg/dL Borderline High: ..... 200-239 mg/dL High: ................ >=240 mg/dL * The National Cholesterol Education Program (NCEP) 36 Reference Guidelines*: Normal: ............. < 150 mg/dL Borderline High: .... 150-199 mg/dL High: ............... 200-499 mg/dL Very High: .......... > 500 mg/dL * Source: National Cholesterol Education Program (NCEP) 37 Reference Guidelines*: Low HDL: ..... < 40 mg/dL Normal: ..... 40-60 mg/dL Desirable: ... > 60 mg/dL *The National Cholesterol Education Program(NCEP) 38 Reference Guidelines*: Optimal:........... <100 mg/dL Near Optimal....... 100-129 mg/dL Borderline High.... 130-159 mg/dL High............... 160-189 mg/dL Very High.......... >=190 mg/dL * Source: National Cholesterol Education Program (NCEP) 39 Vitamin D deficiency has been defined by the [place] [employer] and an Endocrine Society practice guideline as a level of serum 25-OH vitamin D less than 20 ng/mL (1,2). The Endocrine Society went on to further define vitamin D insufficiency as a level between 21 and 29 ng/mL (2). 1. IOM ([place]). 2010. Dietary reference intakes for calcium and D. [place]: The National [employer]. 2. Donita MF, Jacquie CARMEN, Frederick BHAT, et al. Evaluation, treatment, and prevention of vitamin D deficiency: an Endocrine Society clinical practice guideline. JCEM. 2010; 96(7):1911-30. Performed at: RN - [facility] [address] [id number] Client Account Manager: Louann Lewis MD, Phone: [phone] 40 Note: Persistent reduction for 3 months or more in an eGFR <60 mL/min/1.73 m2 defines CKD. Patients with eGFR values >/=60 mL/min/1.73 m2 may also have CKD if evidence of persistent proteinuria is present. The original MDRD equation for estimated GFR is not valid for patients less than 18 years of age. Additional information may be found at www.kdoqi.org. 41 Reference Guidelines*: Desirable: ........... < 200 mg/dL Borderline High: ..... 200-239 mg/dL High: ................ >=240 mg/dL * The National Cholesterol Education Program (NCEP) 42 Reference Guidelines*: Normal: ............. < 150 mg/dL Borderline High: .... 150-199 mg/dL High: ............... 200-499 mg/dL Very High: .......... > 500 mg/dL * Source: National Cholesterol Education Program (NCEP) 43 Reference Guidelines*: Low HDL: ..... < 40 mg/dL Normal: ..... 40-60 mg/dL Desirable: ... > 60 mg/dL *The National Cholesterol Education Program(NCEP) 44 Reference Guidelines*: Optimal:........... <100 mg/dL Near Optimal....... 100-129 mg/dL Borderline High.... 130-159 mg/dL High............... 160-189 mg/dL Very High.......... >=190 mg/dL * Source: National Cholesterol Education Program (NCEP) 45 Vitamin D deficiency has been defined by the [place] and an Endocrine Society practice guideline as a level of serum 25-OH vitamin D less than 20 ng/mL (1,2). The Endocrine Society went on to further define vitamin D insufficiency as a level between 21 and 29 ng/mL (2). 1. IOM ([place] [employer]). 2010. Dietary reference intakes for calcium and D. [place]: The National Academies Press. 2. Donita COLE, Jacquie CARMEN, Frederick BHAT, et al. Evaluation, treatment, and prevention of vitamin D deficiency: an Endocrine Society clinical practice guideline. JCEM. 2010; 96(7):1911-30. Performed at: RN - [facility] [address] [id number] Client Account Manager: Louann Lewis MD, Phone: [phone] 46 Negative <5 Equivocal 5 - 9 Positive >9 47 Performed at: [facility] [employer] [id number] Client Account Manager: Louann Lewis MD, Phone: [phone] 48 A low TSH should not be the sole basis for diagnosing primary hyperthyroidism, or primary hypopituitary function. Additional tests are suggested for confirmation. 49 Vitamin D deficiency has been defined by the [place] and an Endocrine Society practice guideline as a level of serum 25-OH vitamin D less than 20 ng/mL (1,2). The Endocrine Society went on to further define vitamin D insufficiency as a level between 21 and 29 ng/mL (2). 1. IOM ([place]). 2010. Dietary reference intakes for calcium and D. [place]: The National Academies Press. 2. Donita MF, Jacquie CARMEN, Frederick BHAT, et al. Evaluation, treatment, and prevention of vitamin D deficiency: an Endocrine Society clinical practice guideline. JCEM. 2010; 96(7):1911-30. Performed at: RN - [facility] [address] [id number] Client Account Manager: Louann Lewis MD, Phone: [phone] 50 Note: Persistent reduction for 3 months or more in an eGFR <60 mL/min/1.73 m2 defines CKD. Patients with eGFR values >/=60 mL/min/1.73 m2 may also have CKD if evidence of persistent proteinuria is present. The original MDRD equation for estimated GFR is not valid for patients less than 18 years of age. Additional information may be found at www.kdoqi.org. 51 Elevated levels of HbA1c suggest the need for more aggressive treatment of glycemia. The [place] [employer] recommends that a primary goal of therapy should be a HbA1c of <7% and that physicians should re-evaluate the treatment regimen in patients with HbA1c values consistently >8%. 52 NOTE CHANGE IN B12 REFERENCE RANGE Procedures Date Code Description Status 07/14/2018 86776 EKG-Tracing And Report Completed 06/30/2018 45421006 Mammogram Completed 12/09/2017 52680 Echocardiogram Complete Completed 07/16/2017 52920 Colonoscopy With Biopsy Completed 05/13/2017 41477 EKG-Tracing And Report Completed 11/25/2016 [id number] Colonoscopy Completed 10/29/2016 91497 Echocardiogram Complete Completed 02/06/2016 00598 Event Monitor Inter/Review Only Completed 01/30/2016 92008 EKG-Tracing And Report Completed 01/24/2016 66853 Echocardiogram Complete Completed 05/24/2015 32147 Nerve Conduction 7-8 Studies Completed 05/24/2015 05046 Needle Electromyography Complete, Five Or More Muscles Completed Studied 01/17/2015 14324 EKG-Tracing And Report Completed 01/04/2014 44591 Echocardiogram Complete Completed 07/14/2013 23981 Colonoscopy Completed 06/29/2013 13050 Echocardiogram Complete Completed 12/30/2012 04747 Holter Monitor 24HR Inter/Report Completed 12/08/2012 74047 ECHO Transthoracic Inc Performance Continuous Completed Electrocardio 11/25/2012 [id number] Bone Mineral Density Test Completed 11/11/2012 73264 EKG-Tracing And Report Completed 11/11/2012 10709 EKG-Tracing And Report Completed 01/07/2012 48651 Anesthesia, Extraperitoneal Lower Abdomen Not Completed Otherwise Spec 01/01/2012 94526 EKG Interpretation And Report Only Completed Encounters Type Date Location Provider Dx Diagnosis Office Visit 01/13/2019 Primary Care Dianne Lucero, I42.1 Obstructive 10:20a Office hypertrophic cardiomyopathy F17.210 Nicotine dependence, cigarettes, uncomplicated E55.9 Vitamin D deficiency, unspecified E03.9 Hypothyroidism, unspecified Office Visit 07/14/2018 Cardiology Norma Last I42.1 Obstructive 9:20a Office CAROLINE Reese, hypertrophic 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 I47.1 Supraventricular tachycardia Office Visit 07/09/2018 1:00p Primary Care Dianne Lucero, F17.210 Nicotine Office MD dependence, cigarettes, uncomplicated E55.9 Vitamin D deficiency, unspecified I42.1 Obstructive hypertrophic cardiomyopathy B07.0 Plantar wart Office Visit 01/20/2018 10:40a Primary Care Dianne Lucero, J01.90 Acute sinusitis, Office MD unspecified Z71.6 Tobacco abuse counseling Office Visit 12/16/2017 Cardiology Norma Last I42.1 Obstructive 9:20a Office CAROLINE Reese, hypertrophic 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 I47.1 Supraventricular tachycardia F17.200 Nicotine dependence, unspecified, uncomplicated Office Visit 12/10/2017 9:20a Primary Care Dianne Lucero, E55.9 Vitamin D Office MD deficiency, unspecified F17.210 Nicotine dependence, cigarettes, uncomplicated E07.9 Disorder of thyroid, unspecified Z23 Encounter for immunization I42.1 Obstructive hypertrophic cardiomyopathy Office Visit 06/21/2017 8:30a MARK Florez MD R19.4 Change in bowel habit Z12.11 Encounter for screening for malignant neoplasm of colon R10.9 Unspecified abdominal pain Office Visit 06/10/2017 9:20a Primary Care Dianne Lucero, F17.210 Nicotine Office MD dependence, cigarettes, uncomplicated R92.8 Oth abn and inconclusive findings on dx imaging of breast I47.1 Supraventricular tachycardia R19.7 Diarrhea, unspecified E55.9 Vitamin D deficiency, unspecified Office Visit 05/13/2017 Cardiology Sam Spain I42.1 Obstructive 9:40a Office Bret Sadler, [facility] hypertrophic cardiomyopathy F17.210 Nicotine dependence, cigarettes, uncomplicated I47.1 Supraventricular tachycardia Office Visit 12/10/2016 9:20a Primary Care Dianne Lucero, R10.813 Right lower Office MD quadrant abdominal tenderness I42.1 Obstructive hypertrophic cardiomyopathy I47.1 Supraventricular tachycardia R20.2 Paresthesia of skin F17.210 Nicotine dependence, cigarettes, uncomplicated Z23 Encounter for immunization Office Visit 11/12/2016 Cardiology Norma Last I42.1 Obstructive 8:40a Office CAROLINE Reese, hypertrophic 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 I47.1 Supraventricular tachycardia F17.200 Nicotine dependence, unspecified, uncomplicated Office Visit 10/15/2016 Cardiology Norma Last I42.1 Obstructive 8:40a Office CAROLINE Reese, hypertrophic 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 I47.1 Supraventricular tachycardia F17.200 Nicotine dependence, unspecified, uncomplicated Office Visit 09/13/2016 2:20p Primary Care Dianne Lucero, J06.9 Acute upper Office MD respiratory infection, unspecified R05 Cough Office Visit 04/10/2016 Cardiology Norma Last I47.1 Supraventricular 8:30a Office CAROLINE Reese, tachycardia SOLDERING TECHNICIAN I42.1 Obstructive hypertrophic cardiomyopathy F17.200 Nicotine dependence, unspecified, uncomplicated Office Visit 03/12/2016 Cardiology Norma Last I47.1 Supraventricular 8:20a Office CAROLINE Reese, tachycardia 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 I42.1 Obstructive hypertrophic cardiomyopathy Office Visit 01/30/2016 Cardiology Norma Last I42.1 Obstructive 9:00a Office CAROLINE Reese, hypertrophic 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 I47.1 Supraventricular tachycardia R06.00 Dyspnea, unspecified Office Visit 12/05/2015 1:20p Primary Care Dianne Lucero, I42.1 Obstructive Office MD hypertrophic cardiomyopathy E73.9 Lactose intolerance, unspecified H93.13 Tinnitus, bilateral E07.9 Disorder of thyroid, unspecified Z23 Encounter for immunization Office Visit 01/17/2015 Cardiology Norma Last 425.11 Hypertrophic 8:40a Office CAROLINE Reese, Obstructive SOLDERING TECHNICIAN Cardiomyopathy 427.0 PSVT Paroxysmal Supraventricular Tachycardia Office Visit 01/06/2014 Cardiology Judit 425.11 Hypertrophic 9:10a Office Sam Sadler M.D., Obstructive FACC Cardiomyopathy 427.0 PSVT Paroxysmal Supraventricular Tachycardia Office Visit 07/06/2013 Cardiology Norma Last 425.11 Hypertrophic 8:40a Office CAROLINE Reese, Obstructive SOLDERING TECHNICIAN Cardiomyopathy 427.0 PSVT Paroxysmal Supraventricular Tachycardia Office Visit 04/23/2013 8:30a Surgical Office Mariano, 305.1 Tobacco Use Any Krause M.D. V76.51 Special Screening For Malignant Neoplasms Colon Office Visit 12/29/2012 Cardiology Judit 425.11 Hypertrophic 10:20a Office Sam Sadler M.D., Obstructive FACC Cardiomyopathy Office Visit 11/11/2012 Cardiology Norma Last 786.05 Shortness Of Breath 9:45a Office CAROLINE Reese, SOLDERING TECHNICIAN 785.1 Palpitations Plan of Treatment Future Appointment(s):03/17/2019 11:20 am - Dianne Lucero MD at [facility]0501/13/2019 - Dianne Lucero MDI42.1 Obstructive hypertrophic cardiomyopathyComments:-follow up with cardiology every 6 months-Echo done once a year-asymptomatic eyotgnirxB09.210 Nicotine dependence, cigarettes, uncomplicatedNew Medication:Nicotrol 10 mg - inhale and use up to 6 cartridges a dayComments:-continue to cut down on smoking -Twice a chantix was helpful, but am dose of chantix causes some nausea and could not tolerate-Sera made her feel odd when she was taking twice a day but was also using a lot of cleaning solutions and wanted to try it again and did not tolerate it -low dose Chest Ct done , due in March 2019E55.9 Vitamin D deficiency, unspecifiedNew Labs:Vitamin D, 25-Hydroxy, Scheduled: 03/23/19Comments:-Ergocalciferol weekly -take supplement with fat in diet -check in 10 zdwxfC97.9 Hypothyroidism, unspecifiedNew Labs: Thyroid Stim Hormone, Scheduled: 03/23/19Free T4, Scheduled: 03/23/19Comments:- TSH 3.79 and t4 0.93-Experiencing more sx of hypothyrodism-restart levothyroxine 25mcg daily -recheck TSH, t4 in 10 weeksAllFollow up:TSH,free t4 in 10 weeks followup in 10 weeks to discuss results
[2019-02-15 17:24] VITALS: BP 177/81
[2019-02-15] MEDS ORDERED: predniSONE TAB* 20 MG PO ONE (17:25)
[2019-02-15] MEDS ORDERED: Albuterol/Ipratropium NEB.SOL* Albuterol 2.5 MG/Ipratropium 0.5 MG 3 ML INH ONE (17:25)
--- NOTE | 2019-02-15 17:31 | UC ---
Respiratory Complaint HPI - HPI Summary HPI Summary: 53 year old female presents with 1 week history of nasal congestion, runny nose , and non-productive cough. States had chills and body aches at outset of symptoms which has resolved. States over the past 3 days has developed increased shortness of breath and wheezing especially at night. Has been using her albuterol inhaler that was prescribed to her when she had bronchitis in 2017 without relief. Smokes 1/2 PPD. Denies fever, ear pain, sore throat, chest pain, palpitations, edema, abdominal pain, nausea, vomiting, or diarrhea. - History of Current Complaint Chief Complaint: UCRespiratory Stated Complaint: CONGESTION Time Seen by Provider: 02/15/19 17:16 Hx Obtained From: Patient Hx Last Menstrual Period: NONE Pain Intensity: 0 - Allergies/Home Medications Allergies/Adverse Reactions: Allergies Allergy/AdvReac Type Severity Reaction Status Date / Time No Known Allergies Allergy Verified 08/28/18 19:38 Home Medications: Home Medications Levothyroxine TAB* [Synthroid TAB*] 25 mcg PO 0800 02/15/19 [History Confirmed 02/15/19] PMH/Surg Hx/FS Hx/Imm Hx Endocrine History: Hypothyroidism - [place] Cardiovascular History: Other - hypertropic cardiomyopathy, V-tach - Surgical History Surgical History: Yes Surgery Procedure, Year, and Place: tubal ligation. bladder mesh for urinary incontinence - Family History Known Family History: Positive: Cardiac Disease Negative: Respiratory Disease - Social History Occupation: Employed Full-time Lives: Alone Alcohol Use: Rare Substance Use Type: None Smoking Status (MU): Heavy Every Day Tobacco Smoker Type: Cigarettes Amount Used/How Often: 1/2 PPD Length of Time of Smoking/Using Tobacco: 30 years Have You Smoked in the Last Year: Yes Household Exposure Type: Cigarettes - Immunization History Most Recent Influenza Vaccination: no Most Recent Tetanus Shot: unknown Vaccination Up to Date: No Review of Systems All Other Systems Reviewed And Are Negative: Yes Constitutional: Positive: Fever - Subjective, Chills, Fatigue Skin: Negative: Rash Eyes: Negative: Drainage, Eye Redness ENT: Positive: Nasal Discharge, Sinus Congestion. Negative: Sore Throat, Ear Ache, Sinus Pain/Tenderness Respiratory: Positive: Shortness Of Breath, Cough, Other - Wheezing Cardiovascular: Negative: Palpitations, Chest Pain Gastrointestinal: Negative: Abdominal Pain, Vomiting, Diarrhea, Nausea Genitourinary: Positive: Negative Musculoskeletal: Positive: Negative Neurological: Positive: Negative Is Patient Immunocompromised?: No Physical Exam - Summary Physical Exam Summary: GENERAL APPEARANCE: Well developed, well nourished, alert and cooperative, and appears to be in no acute distress. EYES: Conjunctiva clear. No drainage. Vision is grossly intact. EARS: External auditory canals and tympanic membranes clear, hearing grossly intact. NOSE: Mild-moderate nasal congestion. No nasal discharge. THROAT: Mild pharyngeal erythema with cobblestoning. No tonsilar inflammation, swelling, exudate, or lesions. Uvula midline. NECK: Neck supple, non-tender without lymphadenopathy. CARDIAC: Normal S1 and S2. No S3, S4 or murmurs. Rhythm is regular. There is no peripheral edema, cyanosis or pallor. Extremities are warm and well perfused. Capillary refill is less than 2 seconds. Peripheral pulses intact. LUNGS: Diffuse bilateral wheezing. Bronchospastic cough. ABDOMEN: Positive bowel sounds. Soft, nondistended, nontender. No guarding or rebound. No masses or hepatosplenomegally. MUSKULOSKELETAL: ROM intact to all extremities. No joint erythema or tenderness. Normal muscular development. Normal gait. SKIN: Skin normal color, texture and turgor with no lesions or eruptions. Triage Information Reviewed: Yes Vital Signs: Initial Vital Signs Temp 99.9 F 02/15/19 17:18 Pulse 73 02/15/19 17:18 Resp 15 02/15/19 17:18 BP 177/81 02/15/19 17:18 Pulse Ox 98 02/15/19 17:18 Vital Signs Reviewed: Yes Respiratory Course/Dx - Course Course Of Treatment: 53 year old female presents with 1 week history of nasal congestion, runny nose , and non-productive cough. States had chills and body aches at outset of symptoms which has resolved. States over the past 3 days has developed increased shortness of breath and wheezing especially at night. Has been using her albuterol inhaler that was prescribed to her when she had bronchitis in 2017 without relief. Smokes 1/2 PPD. Denies fever, ear pain, sore throat, chest pain, palpitations, edema, abdominal pain, nausea, vomiting, or diarrhea. Afebrile. hypertensive otherwise VSS. Exam remarkable for mild-moderate nasal congestion, mild pharyngeal erythema with cobblestoning, diffuse bilateral wheezing, and a bronchospastic cough. She was given a DuoNeb treatment and prednisone 40 mg. Post-treatment she reported improved breathing and chest much less tight. Bilateral breath sounds clear. Will treat for URI with cough and RAD with course of azithromycin, first dose was given in clinic, and she will continue with the prednisone 50 mg daily for next 4 days. She is to continue using the albuterol inhaler 2 puffs every 4-6 hours as needed for SOB and wheezing. She is to follow up with her PCP in 3-5 days for recheck of symptoms. Anticipatory guidance and warning symptoms were reviewed. Verbalizes understanding and agrees with POC. - Differential Dx/Diagnosis Provider Diagnosis: Upper respiratory infection with cough and congestion, Reactive airway disease Discharge - Sign-Out/Discharge Documenting (check all that apply): Patient Departure All imaging exams completed and their final reports reviewed: No Studies - Discharge Plan Condition: Stable Disposition: HOME Prescriptions: Azithromycin TAB* [Zithromax TAB (Z-CHARY) 250 mg #6 tabs] 250 mg PO DAILY #4 tab predniSONE TAB* [Deltasone TAB*] 50 mg PO DAILY #4 tab Patient Education Materials: Upper Respiratory Infection (ED), Wheezing (ED) Referrals: Dianne Lucero MD [Primary Care Provider] - 3 Days (Follow up in 3-5 days for recheck of symptoms.) Additional Instructions: Your history and exam are consistent with an upper respiratory infection with reactive airway disease (wheezing). We will start you on an antibiotic for the infection and an oral steroid to help reduce the inflammation in your airways causing the shortness of breath and wheezing. Take azithromycin 1 tab daily for 4 days starting tomorrow. We gave you the first dose in the clinic today. Take prednisone 50 mg daily for 4 days starting tomorrow. We gave you the first dose in the clinic. Use your albuterol inhaler 2 puffs every 4-6 hours as needed for wheezing or shortness of breath. Drink plenty of fluids to avoid dehydration especially if you are running any fever. Use a saline rinse kit such as Neti Pot or NeilMed at least twice a day to help thin secretions and promote drainage of the sinuses. Take over the counter acetaminophen (Tylenol) according to directions as needed for pain or fever. Follow up with your primary care provider within 3-5 days for recheck of symptoms. You blood pressure was elevated in the clinic today. It is recommended that you have this rechecked by your primary care provider. Seek immediate medical attention in the emergency room if you have fever greater than 100.5 F despite taking acetaminophen or ibuprofen, have chest pain , difficulty breathing, are unable to swallow, or have any worsening of symptoms. - Billing Disposition and Condition Condition: STABLE Disposition: Home - Attestation Statements Provider Attestation: Per institutional requirements, I have reviewed the chart, however, I was not consulted specifically or made aware of this patient by the midlevel provider. I did not personally evaluate, interact with , or disposition this patient.
[2019-02-15] MEDS ORDERED: Azithromycin TAB* 250 MG PO ONE (17:54)
== END 2019-02-15 18:03 | disposition home or self-care (01) ==
LOC: UCCORT 17:09
DX: J06.9 Acute upper respiratory infection, unspecified (principal); R05 Cough; R09.81 Nasal congestion; J45.909 Unspecified asthma, uncomplicated; F17.210 Nicotine dependence, cigarettes, uncomplicated; E06.3 Autoimmune thyroiditis; Z79.899 Other long term (current) drug therapy
CPT/HCPCS: 99213; A9270-GY; G0463; J7512

== ENCOUNTER 2019-02-21 07:06 | Emergency (ER) | payer OTHER ==
--- NOTE | 2019-02-21 07:36 | UC ---
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 She has been monogomous with him for "years and years". 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 Patient noticed vulvar irritation since last night." -she was seen here recently and treated w/ zpack and prednisone. checks home BP and it was elevated since taking the prednisone. but has completed now. improved on rpt here and will check BPs at home. -she has had intercourse since being on the zpack. BF was treated yesterday. -he had lab work done yesterday. did not report + GC -she has no dysuria. he reported dysuria a few wks ago -she [facility]. has had abnml paps and leeps. no known h/o STDs. he did not admit to being unfaithful. they have been together for 25-30 yrs w/ kids and grandkids together. - History Of Current Complaint Chief Complaint: UCGU Stated Complaint: PERSONAL Time Seen by Provider: 02/21/19 07:34 Hx Last Menstrual Period: NONE Pain Intensity: 0 - Allergies/Home Medications Allergies/Adverse Reactions: Allergies Allergy/AdvReac Type Severity Reaction Status Date / Time No Known Allergies Allergy Verified 02/21/19 07:22 PMH/Surg Hx/FS Hx/Imm Hx Previously Healthy: Yes Endocrine History: Hypothyroidism - Surgical History Surgical History: Yes Surgery Procedure, Year, and Place: tubal ligation. bladder mesh for urinary incontinence - Family History Known Family History: Positive: Cardiac Disease Negative: Respiratory Disease - Social History Alcohol Use: Rare Substance Use Type: None Smoking Status (MU): Heavy Every Day Tobacco Smoker Type: Cigarettes Amount Used/How Often: 1/2 PPD Length of Time of Smoking/Using Tobacco: Since Age 16 Have You Smoked in the Last Year: Yes Household Exposure Type: Cigarettes - Immunization History Most Recent Influenza Vaccination: no Most Recent Tetanus Shot: unknown Vaccination Up to Date: No Review of Systems All Other Systems Reviewed And Are Negative: Yes Constitutional: Positive: Negative Skin: Positive: Negative Eyes: Positive: Negative ENT: Positive: Negative Respiratory: Positive: Negative Cardiovascular: Positive: Negative Gastrointestinal: Positive: Negative Genitourinary: Positive: Negative Motor: Positive: Negative Neurovascular: Positive: Negative Musculoskeletal: Positive: Negative Neurological: Positive: Negative Psychological: Positive: Negative Is Patient Immunocompromised?: No Physical Exam Triage Information Reviewed: Yes Appearance: Well-Appearing, No Pain Distress, Well-Nourished - understandably anxious Vital Signs: Initial Vital Signs Temp 98 F 02/21/19 07:17 Pulse 64 02/21/19 07:17 Resp 18 02/21/19 07:17 BP 176/107 02/21/19 07:17 Pulse Ox 99 02/21/19 07:17 Vital Signs Reviewed: Yes Eye Exam: Normal ENT Exam: Normal Neck exam: Normal Respiratory Exam: Normal Cardiovascular Exam: Normal Abdominal Exam: Normal Musculoskeletal Exam: Normal Neurological Exam: Normal Psychological Exam: Normal Skin Exam: Normal Complaint Female Dx - Course Course Of Treatment: -urine sent for GC/chlam. -declines lab testing for HIV, hepatitis and syphilis -FU w/ [facility] in 1-2 wks - will need LANNY -she will take the 4 tabs of azithromycin tonight as she has to work all day and wants to avoid GI upset. -declines rocpehin, but agrees to come back for IM if pos. she can call in 2 days for definitive results. -she understood me well adn is agreeable to plan - Differential Dx/Diagnosis Differential Diagnosis/HQI/PQRI: Sexually Transmitted Disease Provider Diagnosis: Exposure to communicable disease Discharge - Sign-Out/Discharge Documenting (check all that apply): Patient Departure All imaging exams completed and their final reports reviewed: No Studies - Discharge Plan Condition: Stable Disposition: HOME Prescriptions: Azithromycin 500 mg PO ONCE #4 tablet Patient Education Materials: Chlamydia (ED) Referrals: Dianne Lucero MD [Primary Care Provider] - Additional Instructions: Make sure to take a probiotic daily while on antibiotics to help prevent a potential complication of antibiotic use called c diff. Some well known brands that can be found OTC are florastor, align and [employer]. Make sure to complete the entire prescription unless advised otherwise by your health care provider - Billing Disposition and Condition Condition: STABLE Disposition: Home
[2019-02-21 07:48] VITALS: BP 148/92
[2019-02-23 13:40] LABS: Neisseria gonorrhoeae (GC) RNA Negative (Negative)
== END 2019-02-21 08:07 | disposition home or self-care (01) ==
LOC: UCCORT 07:06
DX: Z20.89 Contact with and (suspected) exposure to other communicable diseases (principal); F17.210 Nicotine dependence, cigarettes, uncomplicated
CPT/HCPCS: 87491; 87591; 99212; G0463

== ENCOUNTER 2019-08-13 08:50 | Emergency (ER) | payer OTHER ==
--- OUTSIDE RECORDS SUMMARY | 2019-08-13 09:07 | XMS REPORT | Continuity of Care Document ---
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 Onset: 04/23/2013 Paroxysmal supraventricular Sam Spain M.D., FAC Onset: 01/06/2014 tachycardia Primary cardiomyopathy Sam Spain M.D., FAC Onset: 01/06/2014 Intestinal disaccharidase deficiency Dianne Lucero MD Onset: 12/05/2015 Tinnitus, bilateral Dianne Lucero MD Onset: 12/05/2015 Disorder of thyroid gland Dianne Lucero MD Onset: 12/05/2015 Obstructive hypertrophic Dianne Lucero MD Onset: 12/05/2015 cardiomyopathy [place] thyroiditis Nathaniel Jorgensen MD Onset: 12/23/2014 Essential hypertension Nathaniel Jorgensen MD Onset: 11/15/2014 Adult health examination Aliza Mims PA Onset: 11/04/2012 Hypothyroidism Aliza Mims PA Onset: 11/04/2012 Elevated blood-pressure reading Aliza Mims PA Onset: 11/04/2012 without diagnosis of hypertension Anxiety state Aliza Mims PA Onset: 11/04/2012 Panic disorder without agoraphobia Montserrat Atkinson CRNP Onset: 2011 Benign essential hypertension Srinivasan Florez MD Onset: 06/14/2017 Vitamin D deficiency Dianne Lucero MD Onset: 12/10/2017 Acute sinusitis Dianne Lucero MD Onset: 01/20/2018 Substance abuse counseling Dianne Lucero MD Onset: 01/20/2018 Social History Type Date Description Comments Sex Unknown Cigarette Use Pack Years - 30 Tobacco Use Start: Unknown currently smokes 1/2 Pack Daily Smoking Status Reviewed: 06/29/19 currently smokes 1/2 Pack Daily Smokeless Tobacco Never Used Smokeless Tobacco ETOH Use Rarely consumes alcohol Tobacco Use Start: Unknown Light tobacco smoker (10 or trying to quit fewer cigarettes/day) Recreational Drug Use Denies Drug Use Allergies, Adverse Reactions, Alerts Description No Known Drug Allergies Medications Active Medications SIG Qnty Indications Ordering Provider Date Lisinopril 1 by mouth 30tabs I10 Dianne Lucero MD 06/16/2019 10mg Tablets every day Metoprolol Succinate ER 1 po daily 90tabs E55.9 Dianne Lucero MD 2018 50mg Tablets ER 24HR Vitamin D3 1 tab daily 30caps Dianne Lucero MD 03/17/2019 5000Unit Capsules Levothyroxine Sodium 1 by mouth 30tabs Dianne Lucero MD 03/17/2019 50mcg every day Tablets History Medications Lisinopril 1 by mouth every 30tabs I10 Dianne Lucero, 05/18/2019 - 5mg day 06/16/2019 Tablets Levothyroxine Sodium 1 tab by mouth 30tabs Dianne Lucero, 01/13/2019 - every day 03/17/2019 25mcg Tablets Nicotrol inhale and use up 168units F17.210 Dianne Lucero, 01/13/2019 - 10mg Inhaler to 6 cartridges a 04/30/2019 day Medications Administered in Office Medication SIG Qnty Indications Ordering Provider Date Depomedrol 40mg/1cc Araceli Nova MD 06/29/2019 (methylprednisolone acetate) Injection Immunizations CPT Code Status Date Vaccine Lot # [id number] Given 12/10/2017 Pneumovax Injection 50055 Given 12/10/2017 Influenza Virus Vaccine Quadrivalent Iiv4 [place] [id number] [address] Given 12/10/2016 Influenza Virus Vaccine Split Virus Use For [id number] Individual 3Yr Older 13553 Given 05/07/2016 Tdap injection [id number] Given 12/05/2015 Influenza Vaccine (Fluzone) Age 3 And Older [id number] Vital Signs Date Vital Result Comment 06/29/2019 11:01am BP Systolic Sitting Right Arm 128 mmHg BP Diastolic Sitting Right Arm 64 mmHg BP Systolic Sitting Left Arm 122 mmHg BP Diastolic Sitting Left Arm 64 mmHg Body Temperature 97.2 F Heart Rate 55 /min Respiratory Rate 18 /min Height 64 inches 5'4" Weight 163.00 lb BMI (Body Mass Index) 28.0 kg/m2 BSA (Body Surface Area) 1.79 m2 [place] body weight in kilograms 54 kg O2 % BldC Oximetry 98 % 06/29/2019 9:32am BP Systolic Sitting Left Arm 145 mmHg BP Diastolic Sitting Left Arm 83 mmHg Body Temperature 98.4 F Heart Rate 51 /min Height 64 inches 5'4" Weight 162.00 lb BMI (Body Mass Index) 27.8 kg/m2 BSA (Body Surface Area) 1.79 m2 [place] body weight in kilograms 54 kg O2 % BldC Oximetry 96 % Results Test Date Facility Test Result H/L Range Note Chlmaydia/GC/ 06/29/2019 [facility] Chlamydia NEGATIVE Negative [address] trachomatis, [place] [address] [phone] Neisseria gonorrhoeae, PCR NEGATIVE Negative 2 Trichomonas vaginalis PCR NEGATIVE Negative Specimen Type: Genital Affirm 06/16/2019 [facility] Trichomonas Negative [Negative] Vaginitis [address] vaginalis Panel [place], [place] [id number] [phone] Gardnerella vaginalis Negative [Negative] Radha species Negative [Negative] 3 Chlmaydia/GC/Trichomonas 06/16/2019 [facility] Chlamydia Indeterminate Negative PCR [address] trachomatis, [place] [address] PCR [phone] Neisseria gonorrhoeae, PCR Indeterminate Negative 4 Trichomonas vaginalis PCR Indeterminate Negative 5 Specimen Type: Genital Laboratory 06/08/2019 [facility] Vitamin 28.3 Low 30.0-100.0 6, 7 test finding [address] D,25-Hydroxy ng/[place] [address] [phone] Thyroid Stim Hormone 1.17 uIU/mL Normal 0.30-4.20 Free T4 1.21 ng/dL Normal 0.76-1.46 Hepatitis C Antibody < 0.1 s/corat 0.0-0.9 8 Laboratory test 03/10/2019 [facility] Thyroid 2.77 Normal 0.30-4.[address] Stim uIU/[place] [address] Hormone [phone] Free T4 0.98 ng/dL Normal 0.76-1.46 Vitamin D,25-Hydroxy 16.6 ng/mL Low 30.0-100.0 10 Chlam/GC/Trichomonas 02/24/2019 [facility] Ur Trichomonas NEGATIVE Negative 11 PCR, Ur [address] vaginalis,PCR [place], [place] [id number] [phone] Ur Chlamydia trachomatis,PCR NEGATIVE Negative Ur Neisseria gonorrhoeae,PCR NEGATIVE Negative 12 GC/Chlamydia 02/21/2019 [facility] Chlamydia Negative Negative 13 Amplified Rna [phone] trachomatis Rna Neisseria gonorrhoeae (GC) Rna Negative Negative Comprehensive 01/06/2019 [facility] Glucose 106 mg/dL Normal 74-106 14 Metabolic Panel [address] [place], [place] [id number] [phone] BUN 22 mg/dL High 7-18 Creatinine 0.9 mg/dL 0.6-1.3 Glom Filtration Rate, Estimate >60 mL/min >60 If >60 mL/min >60 15 BUN/Creat 24.4 ratio Sodium 141 mmol/L Normal 136-145 Potassium 4.4 mmol/L Normal 3.5-5.1 Chloride 109 mmol/L High 98-107 Carbon Dioxide 25 mmol/L Normal 21-32 Anion Gap 7 mEq/L Low 8-16 Calcium 8.6 mg/dL Normal 8.5-10.1 Total Protein 7.1 g/dL Normal 6.4-8.2 Albumin 3.9 g/dL Normal 3.4-5.0 Globulin 3.2 g/dL Normal 1.9-4.3 Alb/Glob 1.2 ratio Bilirubin,Total 0.5 mg/dL Normal 0.2-1.0 Sgot/Ast 17 U/L Normal 15-37 SGPT/Alt 22 U/L Normal 12-78 Alkaline Phosphatase 55 U/L Normal 45-117 CBS W/Automated 01/06/2019 [facility] White Blood 6.2 K/uL Normal 3.1-10.[address] [place] [address] [phone] Red Blood Count 5.01 M/uL Normal 3.90-5.40 Hemoglobin 15.1 gm/dL Normal 11.6-15.8 Hematocrit 44.7 % Normal 36.0-46.1 Mean Cell Volume 89.2 fl Normal 80.9-99.0 Mean Corpuscular HGB 30.1 pg Normal 25.9-32.7 Mean Corpuscular HGB Conc 33.8 g/dL Normal 30.8-34.3 Platelet Count 150 K/uL Low 155-360 Red Cell Distri Width SD 42.1 fl Normal 36-47 Red Cell Distri Width %CV 13.3 % Normal 11.7-14.4 Mean Platelet Volume 11.7 fL Normal 8.9-12.4 Neut% 51.8 % Normal 40.4-72.8 Lymph % 36.5 % Normal 20.0-42.0 [place] % 9.9 % Normal 4.3-13.2 Eo% 1.5 % Normal 0.0-6.6 Bas% 0.3 % Normal 0.0-1.1 Neut# 3.21 K/uL Normal 1.8-7.0 Lymph # 2.26 K/uL Normal 1.0-4.0 [place] # 0.61 K/uL Normal 0.3-0.9 Eos # 0.09 K/uL Normal 0.0-0.5 Baso # 0.02 K/uL Normal 0.0-0.1 Laboratory test 01/06/2019 [facility] Thyroid 3.79 Normal 0.30-4.[address] Stim uIU/[place] [address] Hormone [phone] Free T4 0.93 ng/dL Normal 0.76-1.46 Vitamin D,25-Hydroxy 15.7 ng/mL Low 30.0-100.0 16 1 A64 2 A negative result for either C. trachomatis and/or N. gonorrhoeae does not preclued an infection because results are dependent on adequate specimen collection, absence of inhibitors, and sufficient DNA to be detected. 3 Method: BD Affirm VPIII DNA Probe Assay 4 A negative result for either C. trachomatis and/or N. gonorrhoeae does not preclued an infection because results are dependent on adequate specimen collection, absence of inhibitors, and sufficient DNA to be detected. 5 Unable to determine results due to possible interfering substance. Specimen recollection is recommended if clinically indicated. 6 E55.9,E03.9,Z11.59 7 Vitamin D deficiency has been defined by the [place] of [employer] and an Endocrine Society practice guideline as a level of serum 25-OH vitamin D less than 20 ng/mL (1,2). The Endocrine Society went on to further define vitamin D insufficiency as a level between 21 and 29 ng/mL (2). 1. IOM ([place] of [employer]). 2010. Dietary reference intakes for calcium and D. [place]: The National Academies Press. 2. Donita MF, Jacquie NC, Frederick BHAT, et al. Evaluation, treatment, and prevention of vitamin D deficiency: an Endocrine Society clinical practice guideline. JCEM. 2010; 96(7):1911-30. Performed at: [facility] [id number] Traffic Administrator: Louann Lewis MD, Phone: [phone] INFCE Result Units: s/co ratio Negative: < 0.8 Indeterminate: 0.8 - 0.9 Positive: > 0.9 The CDC recommends that a positive HCV antibody result be followed up with a HCV Nucleic Acid Amplification test (063336). Performed at: [facility] [id number] Traffic Administrator: Louann Lewis MD, Phone: [phone] E03.9 E55.9 10 Vitamin D deficiency has been defined by the [place] [employer] [place] and an Endocrine Society practice guideline as a level of serum 25-OH vitamin D less than 20 ng/mL (1,2). The Endocrine Society went on to further define vitamin D insufficiency as a level between 21 and 29 ng/mL (2). 1. IOM ([place] of [employer]). 2010. Dietary reference intakes for calcium and D. [place]: The National Academies Press. 2. Jacquie Mai, Frederick BHAT, et al. Evaluation, treatment, and prevention of vitamin D deficiency: an Endocrine Society clinical practice guideline. JCEM. 2010; 96(7):1911-. Performed at: - [facility] [address] [id number] Traffic Administrator: Louann Lewis MD, Phone: [phone] G94 12 A negative result for either C. trachomatis and/or N. gonorrhoeae does not preclued an infection because results are dependent on adequate specimen collection, absence of inhibitors, and sufficient DNA to be detected. 13 [id number] 14 E07.9, I42.1, E55.9 15 Note: Persistent reduction for 3 months or more in an eGFR <60 mL/min/1.73 m2 defines CKD. Patients with eGFR values >/=60 mL/min/1.73 m2 may also have CKD if evidence of persistent proteinuria is present. The original MDRD equation for estimated GFR is not valid for patients less than 18 years of age. Additional information may be found at www.kdoqi.org. 16 Vitamin D deficiency has been defined by the [place] of [employer] and an Endocrine Society practice guideline as a level of serum 25-OH vitamin D less than 20 ng/mL (1,2). The Endocrine Society went on to further define vitamin D insufficiency as a level between 21 and 29 ng/mL (2). 1. IOM ([place] of [place]). 2010. Dietary reference intakes for calcium and D. [place]: The National Academies Press. 2. Jacquie Mai, Frederick BHAT, et al. Evaluation, treatment, and prevention of vitamin D deficiency: an Endocrine Society clinical practice guideline. JCEM. 2010; 96(7):1911-30. Performed at: - [facility] [address] [id number] Traffic Administrator: Louann Lewis MD, Phone: [phone] Procedures Date Code Description Status 06/17/2018 [id number] Mammogram Completed 05/27/2017 [id number] Mammogram Completed 11/25/2016 [id number] Colonoscopy Completed 05/08/2016 [id number] Mammogram Completed 03/22/2014 [id number] Mammogram Completed 02/10/2013 [id number] Mammogram Completed 11/25/2012 [id number] Bone Mineral Density Test Completed 11/05/2011 [id number] Mammogram Completed 08/24/2010 [id number] Mammogram Completed 08/22/2009 [id number] Mammogram Completed Medical Devices Description No Information Available Encounters Type Date Location Provider Dx Diagnosis Office Visit 06/29/2019 Primary Care Gagen, A64 Unspecified sexually 11:00a Office Claudia MS, transmitted disease [employer], CNM M25.521 Pain in right elbow Office Visit 06/16/2019 9:00a Primary Care Claudia Shay, Z01.419 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, [employer], CNM exam (general) (routine) w/o abn findings E55.9 Vitamin D deficiency, unspecified I10 Essential (primary) hypertension F17.210 Nicotine dependence, cigarettes, uncomplicated E03.9 Hypothyroidism, unspecified M77.11 Lateral epicondylitis, right elbow A64 Unspecified sexually transmitted disease Z12.31 Encntr screen mammogram for malignant neoplasm of breast Z11.59 Encounter for screening for other viral diseases Office Visit 05/18/2019 8:30a Primary Care Yassine, I10 Essential ( primary) Office BJORN Rivera hypertension R51 Headache Office Visit 04/30/2019 9:20a Primary Care Dianne Lucero, I10 Essential ( primary) Office hypertension Office Visit 03/17/2019 11:20a Primary Care Dianne Lucero, R03.0 Elevated Office MD blood-pressure reading, w/o diagnosis of htn A64 Unspecified sexually transmitted disease E55.9 Vitamin D deficiency, unspecified E03.9 Hypothyroidism, unspecified Z11.59 Encounter for screening for other viral diseases Z12.2 Encntr screen for malignant neoplasm of respiratory organs Office Visit 02/24/2019 10:20a Primary Care Dianne Luecro, J06.9 Acute upper Office MD respiratory infection, unspecified R03.0 Elevated blood-pressure reading, w/o diagnosis of htn A64 Unspecified sexually transmitted disease Office Visit 01/13/2019 10:20a Primary Care Dianne Lucero, I42.1 Obstructive Office hypertrophic cardiomyopathy F17.210 Nicotine dependence, cigarettes, uncomplicated E55.9 Vitamin D deficiency, unspecified E03.9 Hypothyroidism, unspecified Assessments Date Code Description Provider 06/29/2019 M25.521 Pain in right elbow Araceli Nova MD 06/29/2019 A64 Unspecified sexually transmitted Gagen, Claudia, MS, [employer] , disease CNM 06/29/2019 M25.521 Pain in right elbow Gagen, Claudia, MS, [employer], CNM 06/29/2019 M77.11 Lateral epicondylitis, right elbow Araceli Nova MD 06/16/2019 Z01.419 Encounter for gynecological Claudia Shay, MS, [employer], examination (general) (routine) CN without abnormal findings 06/16/2019 E55.9 Vitamin D deficiency, unspecified Gagen, Claudia, MS, [employer], CNM 06/16/2019 I10 Essential (primary) hypertension Laurita, Claudia, MS, [employer] , CNM 06/16/2019 F17.210 Nicotine dependence, cigarettes, Gagen, Claudia, MS, [employer], uncomplicated CNM 06/16/2019 E03.9 Hypothyroidism, unspecified Gagen, Claudia, MS, [employer], CNM 06/16/2019 M77.11 Lateral epicondylitis, right elbow Gagen, Claudia, MS, [employer], CNM 06/16/2019 A64 Unspecified sexually transmitted Gagen, Claudia, MS, [employer]-C , disease CN 06/16/2019 Z12.31 Encounter for screening mammogram Claudia Shay, MS, [employer], for malignant neoplasm of breast CN 06/16/2019 Z11.59 Encounter for screening for other Claudia Shay, MS, [employer], viral diseases CN 05/18/2019 I10 Essential (primary) hypertension Maria Esther Metzger PA 05/18/2019 R51 Headache Maria Esther Metzger PA 05/12/2019 I10 Essential (primary) hypertension Dianne Lucero MD 04/30/2019 I10 Essential (primary) hypertension Dianne Lucero MD 03/17/2019 R03.0 Elevated blood-pressure reading, Dianne Lucero MD without diagnosis of hypert 03/17/2019 A64 Unspecified sexually transmitted Dianne Lucero MD disease 03/17/2019 E55.9 Vitamin D deficiency, unspecified Dianne Lucero MD 03/17/2019 E03.9 Hypothyroidism, unspecified Dianne Lucero MD 03/17/2019 Z11.59 Encounter for screening for other Dianne Lucero MD viral diseases 03/17/2019 Z12.2 Encounter for screening for Dianne Lucero MD malignant neoplasm of respirator 02/24/2019 J06.9 Acute upper respiratory infection, Dianne Lucero MD unspecified 02/24/2019 R03.0 Elevated blood-pressure reading, Dianne Lucero MD without diagnosis of hypert 02/24/2019 A64 Unspecified sexually transmitted Dianne Lucero MD disease 01/13/2019 I42.1 Obstructive hypertrophic Dianne Lucero MD cardiomyopathy 01/13/2019 F17.210 Nicotine dependence, cigarettes, Dianne Lucero MD uncomplicated 01/13/2019 E55.9 Vitamin D deficiency, unspecified Dianne Lucero MD 01/13/2019 E03.9 Hypothyroidism, unspecified Dianne Lucero MD Plan of Treatment Future Appointment(s):09/29/2019 9:00 am - Araceli Nova MD at Orthopaedic [id number]/03/2019 10:00 am - Claudia Shay MS, [employer], CNM at Primary Care [id number]/03/2019 8:40 am - Norma Last, CAROLINE, W[employer]WAY TRAFFIC CHECKER at Cardiology [id number]/12/2019 - Dianne Lucero MDI10 Essential (primary) hypertensionComments :-Previously had stage 1 HTN but now BP is rising-On metoprolol for SVT and obstructive cardiomyopathy-high readings with home cuff which is a little higher than office cuff and office BP also above goal -Avoid taking readings after drinking caffeine or smoking -Increased metoprolol ER 25mg to 50mg Functional Status Functional Condition Comment Date Status Independent with all ADL's Active Contacts Active Mental Status Description No Information Available Referrals Refer to Dr Reason for Referral Status Appt Date Araceli Nova MD lateral epicondylitis Closed 06/29/2019 [address] [facility], [address] [place] [address] [phone]
--- OUTSIDE RECORDS SUMMARY | 2019-08-13 09:07 | XMS REPORT | Continuity of Care Document ---
:1965 External Reference #:[id number] Author Name Dianne Lucero MD Address [address] [place] [address] Care Team Providers Name Role Phone Dianne Lucero MD - Internal Medicine Care Team Information Crude Tester Josh Anthony MD - Otolaryngology Care Team Information Crude Tester [phone] Aaron Amaro NP - Nurse Care Team Information Crude Tester [phone] Practitioner Problems Active Problems Provider Date Hypertrophic Obstructive Sam Spain M.D., [facility] Onset: 12/29/2012 Cardiomyopathy Tobacco user Hao Quintana M.D. Onset: 04/23/2013 Paroxysmal supraventricular Sam Spain M.D., [facility] Onset: 01/06/2014 tachycardia Primary cardiomyopathy Sam Spain M.D., [facility] Onset: 01/06/2014 Intestinal disaccharidase deficiency Dianne Lucero [...] smokes 1/2 Pack Daily Smoking Status Reviewed: 07/13/19 currently smokes 1/2 Pack Daily Smokeless Tobacco Never Used Smokeless Tobacco ETOH Use Rarely consumes alcohol Tobacco Use Start: Unknown Light tobacco smoker (10 or trying to quit fewer cigarettes/day) Recreational Drug Use Denies Drug Use Allergies, Adverse Reactions, Alerts Description No Known Drug Allergies Medications Active Medications SIG Qnty Indications Ordering Provider Date Ra Vitamin D-3 take 1 capsule 30capDianne Rutherford MD 07/07/2019 5000Unit by mouth daily Capsules Levothyroxine Sodium take 1 tablet by 30tabs Dianne Lucero MD 03/17/2019 mouth once daily 50mcg Tablets Metoprolol Succinate take 1 tablet by 30tabs E55.9 Norma Last 10/15/2016 ER mouth every Simonetta, MSN, 25mg Tablets ER 24HR evening TRAINING REPRESENTATIVE Lisinopril 1 by mouth every I10 Unknown 20mg Tablets day History Medications Lisinopril 1 by mouth 30tabs I10 Dianne Lucero MD 06/16/2019 - 10mg every day 07/13/2019 Tablets Lisinopril 1 by mouth 30tabs I10 Dianne Lucero MD 05/18/2019 - 5mg every day 06/16/2019 Tablets Metoprolol Succinate 1 po daily 90tabs E55.9 Dianne Lucero MD 05/18/2019 - ER 07/13/2019 50mg Tablets ER 24HR Vitamin D3 1 tab daily 30Dianne Frye MD 03/17/2019 - 5000Unit 07/07/2019 Capsules Medications Administered in Office Medication SIG Qnty Indications Ordering Provider Date Depomedrol 40mg/1cc Araceli Nova MD 06/29/2019 (methylprednisolone acetate) Injection Immunizations CPT Code Status Date Vaccine Lot # [id number] Given 12/10/2017 Pneumovax Injection [id number] Given 12/10/2017 Influenza Virus Vaccine Quadrivalent Iiv4 [place] [id number] [address] Given 12/10/2016 Influenza Virus Vaccine Split Virus Use For [id number] Individual 3Yr Older 02391 Given 05/07/2016 Tdap injection [id number] Q2038 Given 12/05/2015 Influenza Vaccine (Fluzone) Age 3 And Older [id number] Vital Signs Date Vital Result Comment 07/13/2019 10:35am BP Systolic Sitting Left Arm 118 mmHg BP Diastolic Sitting Left Arm 72 mmHg Body Temperature 97.0 F Heart Rate 60 /min Respiratory Rate 97 /min Height 64 inches 5'4" Weight 159.00 lb BMI (Body Mass Index) 27.3 kg/m2 BSA (Body Surface Area) 1.77 m2 [place] body weight in kilograms 54 kg 06/29/2019 11:01am BP Systolic Sitting Right Arm 128 mmHg BP Diastolic Sitting Right Arm 64 mmHg BP Systolic Sitting Left Arm 122 mmHg BP Diastolic Sitting Left Arm 64 mmHg Body Temperature 97.2 F Heart Rate 55 /min Respiratory Rate 18 /min Height 64 inches 5'4" Weight 163.00 lb BMI (Body Mass Index) 28.0 kg/m2 BSA (Body Surface Area) 1.79 m2 [place] body weight in kilograms 54 kg O2 % BldC Oximetry 98 % Results Test Date Facility Test Result H/L Range Note Hemoglobin A1c 07/05/2019 N2N/CCD Import Hemoglobin A1c 5.7 % 4.0 - 6.0 Est. Average Glucose 117 mg/dL Troponin I 07/05/2019 N2N/CCD Import Troponin I 1.44 ng/mL Critical < 0.05 high NT-proBNP 07/05/2019 N2N/CCD Import NT-pro BNP 2381 pg/mL High 0 - 125 Comprehensive 07/05/2019 N2N/CCD Import Sodium 139 mmol/L 136 - 145 metabolic panel Potassium 4.0 mmol/L 3.6 - 5.2 Chloride 108 mmol/L 100 - 108 Co2 23 mmol/L 22 - 31 Anion Gap 8 mmol/L 7 - 16 Urea nitrogen 16 mg/dL 7 - 24 Creatinine 0.76 mg/dL 0.60 - 1.00 BUN/Creatinine Ratio 21.1 High 10.0 - 20.0 Ratio Glucose 98 mg/dL 70 - 99 Calcium 9.0 mg/dL 8.4 - 10.2 Protein, Total 6.5 g/dL 6.4 - 8.2 Albumin 3.6 g/dL 3.5 - 4.6 Globulin 2.9 g/dL 2.7 - 4.3 Alb/Glob ratio 1.2 Ratio Alkaline Phosphatase 52 U/L 45 - 117 Bilirubin, Total 0.2 mg/dL 0.0 - 1.0 Ast 22 U/L 11 - 39 Alt 24 U/L 12 - 78 GFR MDRD Non Af Amer >60 >59 ml/min/1.73m2 GFR MDRD Af Amer >60 >59 ml/min/1.73m2 Glom Filt Rate, Est See Notes TSH 07/05/2019 N2N/CCD Import TSH, High 1.470 0.360 - 4.170 Sensitivity mIU/L Magnesium 07/05/2019 N2N/CCD Import Magnesium 2.1 mg/dL 1.7 - 2.4 Protime-Inr 07/05/2019 N2N/CCD Import Protime 10.6 s 9.2 - 11.9 Inr 1.03 aPTT 07/05/2019 N2N/CCD Import aPTT 24.6 s 22.0 - 34.3 CBC and differential 07/05/2019 N2N/CCD Import WBC 7.3 10*3/uL 4.1 - 11.0 RBC 5.13 10*6/uL 4.00 - 5.40 Hemoglobin 15.6 g/dL 12.0 - 16.0 Hematocrit 45.7 % 36.0 - 47.0 MCV 89.0 fL 80.0 - 95.0 MCH 30.4 pg 27.0 - 32.0 MCHC 34.1 g/dL 32.0 - 36.0 RDW 13.3 % 10.5 - 14.5 Platelets 132 10*3/uL Low 150 - 450 MPV 10.2 fL 7.1 - 10.7 Neutrophils % 55.1 % 35.0 - 75.0 Lymphocytes Relative 36.6 % 16.0 - 52.0 Monocytes Relative 6.4 % 0.0 - 8.0 Eosinophils Relative 1.4 % 0.0 - 5.0 Basophils Relative 0.5 % 0.0 - 4.0 Neutrophils Absolute 4.0 10*3/uL 1.8 - 7.7 Lymphocytes Absolute 2.7 10*3/uL 1.2 - 4.8 Monocytes Absolute 0.5 10*3/uL 0.0 - 0.8 Eosinophils Man 0.1 10*3/uL 0.0 - 0.5 Basophils Absolute 0.0 10*3/uL 0.0 - 0.2 Laboratory test finding 07/05/2019 [facility] Troponin-I 0.499 ng/mL 1, [address] [place] [address] [phone] Thyroid Stim Hormone 1.66 uIU/mL Normal 0.30-4.20 Free T4 1.00 ng/dL Normal 0.76-1.46 CBC W/Automated 07/04/2019 [facility] White Blood 9.0 K/uL Normal 3.1-10.[address] [place] [address] [phone] Red Blood Count 5.58 M/uL High 3.90-5.40 Hemoglobin 17.1 gm/dL High 11.6-15.8 Hematocrit 49.8 % High 36.0-46.1 Mean Cell Volume 89.2 fl Normal 80.9-99.0 Mean Corpuscular HGB 30.6 pg Normal 25.9-32.7 Mean Corpuscular HGB Conc 34.3 g/dL Normal 30.8-34.3 Platelet Count 159 K/uL Normal 155-360 Red Cell Distri Width SD 41.2 fl Normal 36-47 Red Cell Distri Width %CV 12.6 % Normal 11.7-14.4 Mean Platelet Volume 12.2 fl Normal 8.9-12.4 Neut% 52.8 % Normal 40.4-72.8 Lymph % 37.2 % Normal 20.0-42.0 [place] % 7.4 % Normal 4.3-13.2 Eo% 1.6 % Normal 0.0-6.6 Bas% 0.6 % Normal 0.0-1.1 Immature Grans 0.4 % Normal 0.0-5.0 NRBC % 0.0 /100WBC < 10/ 100 WBC Neut# 4.75 K/uL Normal 1.8-7.0 Lymph # 3.35 K/uL Normal 1.0-4.0 [place] # 0.67 K/uL Normal 0.3-0.9 Eos # 0.14 K/uL Normal 0.0-0.5 Baso # 0.05 K/uL Normal 0.0-0.1 Immature Grans Absolute 0.04 K/uL NRBC # 0.00 K/uL Chlmaydia/GC/Trichomonas 06/29/2019 [facility] Chlamydia NEGATIVE Negative [address] trachomatis, [place] [address] PCR [phone] Neisseria gonorrhoeae, PCR NEGATIVE Negative 5 Trichomonas vaginalis PCR NEGATIVE Negative Specimen Type: Genital Chlmaydia/GC/Trichomonas 06/16/2019 [facility] Chlamydia Indeterminate Negative PCR [address] trachomatis, [place] [address] PCR [phone] Neisseria gonorrhoeae, PCR Indeterminate Negative 6 Trichomonas vaginalis PCR Indeterminate Negative 7 Specimen Type: Genital Affirm 06/16/2019 [facility] Trichomonas Negative [Negative] Vaginitis [address] [place] [place] [address] [phone] Gardnerella vaginalis Negative [Negative] Radha species Negative [Negative] 8 Laboratory 06/08/2019 [facility] Vitamin 28.3 Low 30.0-100.0 9, 10 test finding [address] D,25-Hydroxy ng/[place] [address] [phone] Thyroid Stim Hormone 1.17 uIU/mL Normal 0.30-4.20 Free T4 1.21 ng/dL Normal 0.76-1.46 Hepatitis C Antibody < 0.1 s/corat 0.0-0.9 11 Laboratory test 03/10/2019 [facility] Thyroid 2.77 Normal 0.30-4.[address] Stim uIU/[place] [address] Hormone [phone] Free T4 0.98 ng/dL Normal 0.76-1.46 Vitamin D,25-Hydroxy 16.6 ng/mL Low 30.0-100.0 13 Chlam/GC/Trichomonas 02/24/2019 [facility] Ur Trichomonas NEGATIVE Negative 14 PCR, Ur [address] vaginalis,[place] [address] [phone] Ur Chlamydia trachomatis,PCR NEGATIVE Negative Ur Neisseria gonorrhoeae,PCR NEGATIVE Negative 15 GC/Chlamydia 02/21/2019 [facility] Chlamydia Negative Negative 16 Amplified Rna [phone] trachomatis Rna Neisseria gonorrhoeae (GC) Rna Negative Negative 1 AFIB 2 0.0 - 0.045 ng/mL: Normal 0.046 - 0.5 ng/mL: Suggestive 0.6 - 1.5 ng/mL: Consistent 3 BP HIGH, HEART RACING 4 A64 5 A negative result for either C. trachomatis and/or N. gonorrhoeae does not preclued an infection because results are dependent on adequate specimen collection, absence of inhibitors, and sufficient DNA to be detected. 6 A negative result for either C. trachomatis and/or N. gonorrhoeae does not preclued an infection because results are dependent on adequate specimen collection, absence of inhibitors, and sufficient DNA to be detected. 7 Unable to determine results due to possible interfering substance. Specimen recollection is recommended if clinically indicated. 8 Method: BD Affirm VPIII DNA Probe Assay 9 E55.9,E03.9,Z11.59 10 Vitamin D deficiency has been defined by the [place] of [employer] and an Endocrine Society practice guideline as a level of serum 25-OH vitamin D less than 20 ng/mL (1,2). The Endocrine Society went on to further define vitamin D insufficiency as a level between 21 and 29 ng/mL (2). 1. IOM ([place] of [employer]). 2010. Dietary reference intakes for calcium and D. [place]: The National Academies Press. 2. Donita MF, Jacquie [place], Frederick BHAT, et al. Evaluation, treatment, and prevention of vitamin D deficiency: an Endocrine Society clinical practice guideline. JCEM. 2010; 96(7):1911-30. Performed at: RN - [facility] [address] [id number] Spring Coverer: Louann Lewis MD, Phone: [phone] INFCE Result Units: s/co ratio Negative: < 0.8 Indeterminate: 0.8 - 0.9 Positive: > 0.9 The CDC recommends that a positive HCV antibody result be followed up with a HCV Nucleic Acid Amplification test (320210). Performed at: [address] [id number] Spring Coverer: Louann Lewis MD, Phone: [phone] 12 E03.9 E55.9 13 Vitamin D deficiency has been defined by the [place] of [employer] and an Endocrine Society practice guideline as a level of serum 25-OH vitamin D less than 20 ng/mL (1,2). The Endocrine Society went on to further define vitamin D insufficiency as a level between 21 and 29 ng/mL (2). 1. IOM ([place] [employer]). 2010. Dietary reference intakes for calcium and D. [place]: The National Academies Press. 2. Donita MF, Jacquie NC, Frederick BHAT, et al. Evaluation, treatment, and prevention of vitamin D deficiency: an Endocrine Society clinical practice guideline. JCEM. 2010; 96(7):1911-30. Performed at: [facility] [id number] Spring Coverer: Louann Lewis MD, Phone: [phone] 14 A64 15 A negative result for either C. trachomatis and/or N. gonorrhoeae does not preclued an infection because results are dependent on adequate specimen collection, absence of inhibitors, and sufficient DNA to be detected. 16 [id number] Procedures Date Code Description Status 06/29/2019 82356 Radiology, Elbow Complete Completed 06/29/2019 20014 Injection:Tendon Sheath,Lig. Cyst Completed 06/22/2019 57671 Echocardiogram Complete Completed 06/17/2018 [id number] Mammogram Completed 05/27/2017 [id number] Mammogram Completed 11/25/2016 [id number] Colonoscopy Completed 05/08/2016 [id number] Mammogram Completed 03/22/2014 [id number] Mammogram Completed 02/10/2013 [id number] Mammogram Completed 11/25/2012 [id number] Bone Mineral Density Test Completed 11/05/2011 [id number] Mammogram Completed 08/24/2010 [id number] Mammogram Completed 08/22/2009 [id number] Mammogram Completed Medical Devices Description No Information Available Encounters Type Date Location Provider Dx Diagnosis Office Visit 06/29/2019 Primary Care Laurita, Campos Unspecified sexually 11:00a Office Claudia, MS, transmitted disease TRAINING REPRESENTATIVE-C, CNM M25.521 Pain in right elbow Office Visit 06/29/2019 9:30a Orthopaedic Office Araceli Nova M25.521 Pain in MD right elbow M77.11 Lateral epicondylitis, right elbow Office Visit 06/16/2019 9:00a Primary Care Claudia Shay, Z01.419 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 Office MS, TRAINING REPRESENTATIVE-C, CNM exam (general) (routine) w/o abn findings E55.9 Vitamin D deficiency, unspecified I10 Essential (primary) hypertension F17.210 Nicotine dependence, cigarettes, uncomplicated E03.9 Hypothyroidism, unspecified M77.11 Lateral epicondylitis, right elbow A64 Unspecified sexually transmitted disease Z12.31 Encntr screen mammogram for malignant neoplasm of breast Z11.59 Encounter for screening for other viral diseases Office Visit 05/18/2019 8:30a Primary Care Comphoracioi, I10 Essential ( primary) Office BJORN Rivera hypertension R51 Headache Office Visit 04/30/2019 9:20a Primary Care Dianne Lucero, I10 Essential ( primary) Office MD hypertension Office Visit 03/17/2019 11:20a Primary Care Dianne Lucero, R03.0 Elevated Office MD blood-pressure reading, w/o diagnosis of htn A64 Unspecified sexually transmitted disease E55.9 Vitamin D deficiency, unspecified E03.9 Hypothyroidism, unspecified Z11.59 Encounter for screening for other viral diseases Z12.2 Encntr screen for malignant neoplasm of respiratory organs Office Visit 02/24/2019 10:20a Primary Care Dianne Lucero, J06.9 Acute upper Office respiratory infection, unspecified R03.0 Elevated blood-pressure reading, w/o diagnosis of htn A64 Unspecified sexually transmitted disease Assessments Date Code Description Provider 07/13/2019 I10 Essential (primary) hypertension Dianne Lucero MD 07/13/2019 I47.1 Supraventricular tachycardia Dianne Lucero MD 06/29/2019 M25.521 Pain in right elbow Araceli Nova MD 06/29/2019 A64 Unspecified sexually transmitted Claudia Shay, MS, TRAINING REPRESENTATIVE-C , disease CNM 06/29/2019 M25.521 Pain in right elbow Claudia Shay, , TRAINING REPRESENTATIVE-C, CNM 06/29/2019 M77.11 Lateral epicondylitis, right elbow Araceli Nova MD 06/22/2019 I42.1 Obstructive hypertrophic Sma Spain M.D., cardiomyopathy [facility] 06/16/2019 Z01.419 Encounter for gynecological Claudia Shay, MS, TRAINING REPRESENTATIVE-C, examination (general) (routine) CN without abnormal findings 06/16/2019 E55.9 Vitamin D deficiency, unspecified Claudia Shay, MS, TRAINING REPRESENTATIVE-C, CNM 06/16/2019 I10 Essential (primary) hypertension Claudia Shay, MS, TRAINING REPRESENTATIVE-C , CN 06/16/2019 F17.210 Nicotine dependence, cigarettes, Claudia Shay, MS, TRAINING REPRESENTATIVE-C, uncomplicated CN 06/16/2019 E03.9 Hypothyroidism, unspecified Claudia Shay, MS, TRAINING REPRESENTATIVE-C, CN 06/16/2019 M77.11 Lateral epicondylitis, right elbow Claudia Shay, MS, TRAINING REPRESENTATIVE-C, CN 06/16/2019 A64 Unspecified sexually transmitted Laurita, Claudia, MS, TRAINING REPRESENTATIVE-C , disease [facility] 06/16/2019 Z12.31 Encounter for screening mammogram for Claudia Shay, MS, TRAINING REPRESENTATIVE-C, malignant neoplasm of breast CN 06/16/2019 Z11.59 Encounter for screening for other Claudia Shay, MS, TRAINING REPRESENTATIVE-C, viral diseases [facility] 05/18/2019 I10 Essential (primary) hypertension Maria Esther [...] diseases 03/17/2019 Z12.2 Encounter for screening for malignant Dianne Lucero MD neoplasm of respirator 02/24/2019 J06.9 Acute upper respiratory infection, Dianne Lucero MD unspecified 02/24/2019 R03.0 Elevated blood-pressure reading, Dianne Lucero MD without diagnosis of hypert 02/24/2019 A64 Unspecified sexually transmitted Dianne Lucero MD disease Plan of Treatment Future Appointment(s):07/15/2019 11:40 am - Sam Spain M.D., FACC at Cardiology [id number]/29/2019 9:00 am - Araceli Nova MD at Orthopaedic Uoxhrh0807/13/2019 - Dianne Lucero MDI10 Essential (primary) hypertensionNew Labs :CBC W/Automated Diff, Ordered: 07/13/19Thyroid Stim Hormone, Ordered: Free T4, Ordered: 07/13/19Vitamin D,25-Hydroxy, Ordered: 07/13/19Basic Metabolic Panel, Ordered: 07/13/19Glycohemoglobin A1c, Ordered: 07/13/19Comments :-On metoprolol for SVT and obstructive cardiomyopathy-Avoid taking readings after drinking caffeineor smoking -Continue metoprolol ER 25mg -Lisinopril increased last visit to 97dvL27.1 Supraventricular tachycardiaNew Labs:LDL Cholesterol Profile, Ordered: 07/13/19Comments:-Had episode of Afib/SVT and was given cardizem/metoprolol-Transferred to [facility] and normal cath-Meds changed to Metoprolol succinate 25mg daily, lisinopril 20mg daily-followup with cardiologyAllFollow up:fasting blood work in 3 months and print out blood work orders for patient-> Claire's order HIV, Hep B and my fasting order followup in [address] Puri Functional Status Functional Condition Comment Date Status Independent with all ADL's Active Contacts Active Mental Status Description No Information Available Referrals Refer to Reason for Referral Status Appt Date Araceli Nova MD lateral epicondylitis Closed 06/29/[address], [address] [place] [address] [phone]
--- OUTSIDE RECORDS SUMMARY | 2019-08-13 09:07 | XMS REPORT | Continuity of Care Document ---
:1965 External Reference #:[id number] Author Name Christi Mooney Care Team Providers Name Role Phone Dianne Lucero MD - Internal Medicine Care Team Information Air Brush Operator Josh Anthony MD - Otolaryngology Care Team Information Air Brush Operator Aaron Amaro REEL STRIPPER - Nurse Care Team Information Air Brush Operator [phone] Practitioner Problems Active Problems Provider Date Hypertrophic Obstructive Sam Spain M.D., [facility] Onset: 12/29/2012 Cardiomyopathy Tobacco user Hao Quintana M.D. Onset: 04/23/2013 Paroxysmal supraventricular Sam Spain M.D., [facility] Onset: 01/06/2014 tachycardia Primary cardiomyopathy Sam Spain M.D., [facility] Onset: 01/06/2014 Intestinal disaccharidase deficiency Dianne Lucero [...] abuse counseling Dianne Lucero MD Onset: 01/20/2018 Paroxysmal atrial fibrillation Sam Spain M.D., [facility] Onset: 2018 Social History Type Date Description Comments Sex [...] Denies Drug Use Allergies, Adverse Reactions, Alerts Active Allergies Reaction Severity Comments Date Lisinopril cough, hoarseness 07/15/2019 Inactive Allergies NKDA 11/11/2012 NKDA 12/10/2017 Medications Active Medications SIG Qnty Indications Ordering Date Provider Amlodipine Besylate 1 by mouth every 90tabs I10 Judit, 07/15/2019 5mg day Sam Sadler M.D., Tablets [facility] Propafenone HCL take 2 pills at 10tabs Judit, 07/15/2019 300mg once if rapid Sam Sadler M.D., Tablets palpitations start [facility] Ra Vitamin D-3 take 1 capsule by 30caps Dianne Lucero, 07/07/2019 5000Unit mouth daily MD Capsules Levothyroxine Sodium take 1 tablet by 30tabs Dianne Lucero, 03/17/2019 mouth once daily MD 50mcg Tablets Metoprolol Succinate take 1 tablet by 30tabs E55.9 Norma Last 10/15/2016 ER mouth every evening CAROLINE Reese, 25mg Tablets ER 24HR ALODIZE MACHINE OPERATOR History Medications Lisinopril 1 by mouth 30tabs I10 Dianne Lucero MD 06/16/2019 - 10mg every day 07/13/2019 Tablets Lisinopril 1 by mouth 30tabs I10 Dianne Lucero MD 05/18/2019 - 5mg every day 06/16/2019 Tablets Metoprolol Succinate 1 po daily 90tabs E55.9 Dianne Lucero MD 05/18/2019 - ER 07/13/2019 50mg Tablets ER 24HR Vitamin D3 1 tab daily 30caps Dianne Lucero MD 03/17/2019 - 5000Unit 07/07/2019 Capsules Medications Administered in Office Medication SIG Qnty Indications Ordering Provider Date Depomedrol 40mg/1cc Araceli Nova MD 06/29/2019 (methylprednisolone acetate) Injection Immunizations CPT Code Status Date Vaccine Lot # [id number] Given 12/10/2017 Pneumovax Injection [id number] Given 12/10/2017 Influenza Virus Vaccine Quadrivalent Iiv4 [place] [id number] [address] Given 12/10/2016 Influenza Virus Vaccine Split Virus Use For [id number] Individual 3Yr Older 65708 Given 05/07/2016 Tdap injection [id number] Q2038 Given 12/05/2015 Influenza Vaccine (Fluzone) Age 3 And Older [id number] Vital Signs Date Vital Result Comment 07/15/2019 11:47am BP Systolic Sitting Left Arm 128 mmHg BP Diastolic Sitting Left Arm 76 mmHg Heart Rate 52 /min Respiratory Rate 18 /min Height 64 inches 5'4" Weight 161.00 lb BMI (Body Mass Index) 27.6 kg/m2 BSA (Body Surface Area) 1.78 m2 [place] body weight in kilograms 54 kg O2 % BldC Oximetry 97 % Ora Ejection Fraction 70 07/13/2019 10:35am BP Systolic Sitting Left Arm 118 mmHg BP Diastolic Sitting Left Arm 72 mmHg Body Temperature 97.0 F Heart Rate 60 /min Respiratory Rate 97 /min Height 64 inches 5'4" Weight 159.00 lb BMI (Body Mass Index) 27.3 kg/m2 BSA (Body Surface Area) 1.77 m2 [place] body weight in kilograms 54 kg Results Test Date Facility Test Result H/L [...] 0.0 - 0.2 Laboratory test finding 07/05/2019 [facility] Troponin-I 0.499 ng/mL 1, [address] [place] [address] [phone] Thyroid Stim Hormone 1.66 uIU/mL Normal 0.30-4.20 Free T4 1.00 ng/dL Normal 0.76-1.46 CBC W/Automated 07/04/2019 [facility] White Blood 9.0 K/uL Normal 3.1-10.7 [address] [place] [address] [phone] Red Blood Count 5.58 M/uL High 3.90-5.40 [...] 40.4-72.8 Lymph % 37.2 % Normal 20.0-42.0 [place] % 7.4 % Normal 4.3-13.2 Eo% 1.6 % Normal 0.0-6.6 Bas% 0.6 % Normal 0.0-1.1 Immature Grans 0.4 % Normal 0.0-5.0 NRBC % 0.0 /100WBC < 10/ 100 WBC Neut# 4.75 K/uL Normal 1.8-7.0 Lymph # 3.35 K/uL Normal 1.0-4.0 [place] # 0.67 K/uL Normal 0.3-0.9 Eos # 0.14 K/uL Normal 0.0-0.5 Baso # 0.05 K/uL Normal 0.0-0.1 Immature Grans Absolute 0.04 K/uL NRBC # 0.00 K/uL Chlmaydia/GC/Trichomonas 06/29/2019 [facility] Chlamydia NEGATIVE Negative [address] trachomatis, [place] [address] PCR [phone] Neisseria gonorrhoeae, PCR NEGATIVE Negative 5 Trichomonas vaginalis PCR NEGATIVE Negative Specimen Type: Genital Chlmaydia/GC/Trichomonas 06/16/2019 [facility] Chlamydia Indeterminate Negative PCR [address] trachomatis, [place] [address] PCR [phone] Neisseria gonorrhoeae, PCR Indeterminate Negative 6 Trichomonas vaginalis PCR Indeterminate Negative 7 Specimen Type: Genital Affirm 06/16/2019 [facility] Trichomonas Negative [Negative] Vaginitis [address] vaginalis Panel [place], [place] [address] [phone] Gardnerella vaginalis Negative [Negative] Radha species Negative [Negative] 8 Laboratory 06/08/2019 [facility] Vitamin 28.3 Low 30.0-100.0 9, 10 test finding [address] D,25-Hydroxy ng/[place] [address] [phone] Thyroid Stim Hormone 1.17 uIU/mL Normal 0.30-4.20 Free T4 1.21 ng/dL Normal 0.76-1.46 Hepatitis C Antibody < 0.1 s/corat 0.0-0.9 11 Laboratory test 03/10/2019 [facility] Thyroid 2.77 Normal 0.30-4.[address] Stim uIU/[place] [address] Hormone [phone] Free T4 0.98 ng/dL Normal 0.76-1.46 Vitamin D,25-Hydroxy 16.6 ng/mL Low 30.0-100.0 13 Chlam/GC/Trichomonas 02/24/2019 [facility] Ur Trichomonas NEGATIVE Negative 14 PCR, Ur [address] vaginalis,[place] [address] [phone] Ur Chlamydia trachomatis,PCR NEGATIVE Negative Ur Neisseria gonorrhoeae,PCR NEGATIVE Negative 15 GC/Chlamydia 02/21/2019 [facility] Chlamydia Negative Negative 16 Amplified Rna [phone] trachomatis Rna Neisseria gonorrhoeae (GC) Rna Negative [...] D deficiency has been defined by the [place] [employer] and an Endocrine Society practice guideline as a level of serum 25-OH vitamin D less than 20 ng/mL (1,2). The Endocrine Society went on to further define vitamin D insufficiency as a level between 21 and 29 ng/mL (2). 1. IOM ([place] [employer]). 2010. Dietary reference intakes for calcium and D. [place]: The National Academies Press. 2. Donita COLE, Jacquie CARMEN, Frederick BHAT, et al. Evaluation, treatment, and prevention of vitamin D deficiency: an Endocrine Society clinical practice guideline. JCEM. 2010; 96(7):1911-30. Performed at: [address] [id number] Operations Lieutenant: Louann Lewis MD, Phone: [phone] INFCE Result Units: s/co ratio Negative: < 0.8 Indeterminate: 0.8 - 0.9 Positive: > 0.9 The CDC recommends that a positive HCV antibody result be followed up with a HCV Nucleic Acid Amplification test (918065). Performed at: [address] [id number] Operations Lieutenant: Louann Lewis MD, Phone: [phone] 12 E03.9 E55.9 13 Vitamin D deficiency has been defined by the [place] [employer] and an Endocrine Society practice guideline as a level of serum 25-OH vitamin D less than 20 ng/mL (1,2). The Endocrine Society went on to further define vitamin D insufficiency as a level between 21 and 29 ng/mL (2). 1. IOM ([place] [employer]). 2010. Dietary reference intakes for calcium and D. [place]: The National Academies Press. 2. Donita MF, Jacquie [place], Frederick BHAT, et al. Evaluation, treatment, and prevention of vitamin D deficiency: an Endocrine Society clinical practice guideline. JCEM. 2010; 96(7):1911-30. Performed at: [address] [id number] Operations Lieutenant: Louann Lewis MD, Phone: [phone] A64 15 A negative result for either C. trachomatis and/or N. gonorrhoeae does not preclued an infection because results are dependent on adequate specimen collection, absence of inhibitors, and sufficient DNA to be detected. 16 [id number] Procedures Date Code Description Status 07/15/2019 60573 EKG-Tracing And Report Completed 07/13/2019 [id number] Mammogram Completed 06/29/2019 15806 Radiology, Elbow Complete Completed 06/29/2019 47752 Injection:Tendon Sheath,Lig. Cyst Completed 06/22/2019 59766 Echocardiogram Complete Completed 05/27/2017 [id number] Mammogram Completed 11/25/2016 [id number] Colonoscopy Completed 05/08/2016 [id number] Mammogram Completed 03/22/2014 [id number] Mammogram Completed 02/10/2013 [id number] Mammogram Completed 11/25/2012 [id number] Bone Mineral Density Test Completed 11/05/2011 [id number] Mammogram Completed 08/24/2010 [id number] Mammogram Completed 08/22/2009 [id number] Mammogram Completed Medical Devices Description No Information Available Encounters Type Date Location Provider Dx Diagnosis Office Visit 07/15/2019 Cardiology Office Judit, I42.1 Obstructive 11:40a Sam Sadler M.D., hypertrophic FACC cardiomyopathy I48.0 Paroxysmal atrial fibrillation I10 Essential (primary) hypertension Office Visit 07/13/2019 10:40a Primary Care Dianne Lucero, I10 Essential ( primary) Office hypertension I47.1 Supraventricular tachycardia Office Visit 06/29/2019 11:00a Primary Care Claudia Shay, A64 Unspecified Office MS, ALODIZE MACHINE OPERATOR-C, CNM sexually transmitted disease M25.521 Pain in right elbow Office Visit 06/29/2019 9:30a Orthopaedic Office Araceli Nova M25.521 Pain in MD right elbow M77.11 Lateral epicondylitis, right elbow Office Visit 06/16/2019 9:00a Primary Care Claudia Shay, Z01.419 Encntr for offset press assistant Office MS, ALODIZE MACHINE OPERATOR-C, CNM exam (general) (routine) w/o abn findings E55.9 Vitamin D deficiency, unspecified I10 Essential (primary) hypertension F17.210 Nicotine dependence, cigarettes, uncomplicated E03.9 Hypothyroidism, unspecified M77.11 Lateral epicondylitis, right elbow A64 Unspecified sexually transmitted disease Z12.31 Encntr screen mammogram for malignant neoplasm of breast Z11.59 Encounter for screening for other viral diseases Office Visit 05/18/2019 8:30a Primary Care Compjose, I10 Essential ( primary) Office BJORN Rivera [...] transmitted disease Assessments Date Code Description Provider 07/15/2019 I42.1 Obstructive hypertrophic Sam Spain M.D., cardiomyopathy [facility] 07/15/2019 I48.0 Paroxysmal atrial fibrillation Sam Spain M.D., [facility] 07/15/2019 I10 Essential (primary) hypertension Sam Spain M.D., [facility] 07/13/2019 I10 Essential (primary) hypertension Dianne Lucero MD 07/13/2019 I47.1 Supraventricular tachycardia Dianne Lucero MD 06/29/2019 M25.521 Pain in right elbow Araceli Nova MD 06/29/2019 A64 Unspecified sexually transmitted Claudia Shay, MS, ALODIZE MACHINE OPERATOR-C , disease [facility] 06/29/2019 M25.521 Pain in right elbow Claudia Shay, MS, ALODIZE MACHINE OPERATOR-C, [facility] 06/29/2019 M77.11 Lateral epicondylitis, right elbow Araceli Nova MD 06/22/2019 I42.1 Obstructive hypertrophic Sam Spain M.D., cardiomyopathy [facility] 06/16/2019 Z01.419 Encounter for gynecological Claudia Shay, MS, ALODIZE MACHINE OPERATOR-C, examination (general) (routine) CN without abnormal findings 06/16/2019 E55.9 Vitamin D deficiency, unspecified Gagen, Claudia, MS, ALODIZE MACHINE OPERATOR-C, CNM 06/16/2019 I10 Essential (primary) hypertension Claudia Shay, MS, ALODIZE MACHINE OPERATOR-C , CN 06/16/2019 F17.210 Nicotine dependence, cigarettes, GagClaudia shaver, MS, ALODIZE MACHINE OPERATOR-C, uncomplicated CNM 06/16/2019 E03.9 Hypothyroidism, unspecified Gagen, Claudia, MS, ALODIZE MACHINE OPERATOR-C, CN 06/16/2019 M77.11 Lateral epicondylitis, right elbow Claudia Shay, , ALODIZE MACHINE OPERATOR-C, CNM 06/16/2019 A64 Unspecified sexually transmitted Claudia Shay, , ALODIZE MACHINE OPERATOR-C , disease CN 06/16/2019 Z12.31 Encounter for screening mammogram for Claudia Shay MS, ALODIZE MACHINE OPERATOR-C, malignant neoplasm of breast CN 06/16/2019 Z11.59 Encounter for screening for other Claudia Shay, , ALODIZE MACHINE OPERATOR-C, viral diseases CN 05/18/2019 I10 Essential (primary) [...] Lucero MD disease Plan of Treatment Future Appointment(s):01/18/2020 9:00 am - Norma Last, CAROLINE, ALODIZE MACHINE OPERATOR at Cardiology [id number]/29/2019 9:00 am - Araceli Nova MD at Orthopaedic [id number]/15/2019 - Sam Spain M.D., FACCI42.1 Obstructive hypertrophic cardiomyopathyComments:She has septal hypertrophy with no LVOT obstruction. She will continue with metoprolol.I48.0 Paroxysmal atrial fibrillationComments:She had a single episode of afib. She felt the palpitations. I discussed with her that it is very difficult to establish a treatment for atrial fibrillation after the first episode since we will not have a real sense of the burden. Her [id number] score is 2 (woman and HTN). She may need to be started on oral anticoagulation but I prefer to see when (if ) she has her second episode. Will carry propafenone 300 mg to take 2 pills if the arrhythmia starts.I10 Essential (primary) hypertensionNew Medication: Amlodipine Besylate 5 mg - 1 by mouth every dayComments:Well controlled but she did not tolerate lisinopril. Will switch her to amlodipine. Functional Status Functional Condition Comment Date Status Independent with all ADL's Active Contacts Active Mental Status Description No Information Available Referrals Refer to Reason for Referral Status Appt Date Araceli Nova MD lateral epicondylitis Closed 06/29/[address], [address] [place] [address] [phone]
--- OUTSIDE RECORDS SUMMARY | 2019-08-13 09:07 | XMS REPORT | Continuity of Care Document ---
:1965 External Reference #:[id number] Author Name Sam Spain M.D., [facility] Address [address] [place] [address] Care Team Providers Name Role Phone Dianne Lucero MD - Internal Medicine Care Team Information Project Architect [phone] Josh Anthony MD - Otolaryngology Care Team Information Project Architect [phone] Aaron Amaro NP - Nurse Care Team Information Project Architect [phone] Practitioner Problems Active Problems Provider Date Hypertrophic Obstructive Sam Spain M.D., [facility] Onset: 12/29/2012 Cardiomyopathy Tobacco user Hao Quintana M.D. Onset: 04/23/2013 Paroxysmal supraventricular Sam Spain M.D., [facility] Onset: 01/06/2014 tachycardia Primary cardiomyopathy Sam Spain M.D., [facility] Onset: 01/06/2014 Intestinal disaccharidase deficiency Dianne [...] 01/20/2018 Paroxysmal atrial fibrillation Sam Spain M.D., [facility] Onset: 2018 Social History Type Date Description [...] 07/15/2019 5mg day Sam Sadler M.D., Tablets [facility] Propafenone HCL take 2 pills at 10tabs Judit, 07/15/2019 300mg once if rapid Sam Sadler M.D., Tablets palpitations start [facility] Ra Vitamin D-3 take 1 capsule by 30caps Dianne Lucero, 07/07/2019 5000Unit mouth daily MD Capsules Levothyroxine Sodium take 1 tablet by 30tabs Dianne Lucero, 03/17/2019 mouth once daily MD 50mcg Tablets Metoprolol Succinate take 1 tablet by 30tabs E55.9 Berhane, Norma 10/15/2016 ER mouth every evening CAROLINE Reese, 25mg Tablets ER 24HR AMPOULE INSPECTOR History Medications Lisinopril 1 by mouth 30tabs I10 Dianne uLcero MD 06/16/2019 - 10mg every day 07/13/2019 [...] CPT Code Status Date Vaccine Lot # 72174 Given 12/10/2017 Pneumovax Injection 41205 Given 12/10/2017 Influenza Virus Vaccine Quadrivalent Iiv4 [place] [id number] [place] [address] Given 12/10/2016 Influenza Virus Vaccine Split Virus Use For [id number] Individual 3Yr Older 87420 Given 05/07/2016 Tdap injection [id number] Q2038 Given 12/05/2015 Influenza Vaccine (Fluzone) Age 3 And Older [id number] Vital Signs Date Vital Result Comment 07/15/2019 11:47am BP Systolic Sitting Left Arm 128 mmHg BP Diastolic Sitting Left Arm 76 mmHg Heart Rate 52 /min Respiratory Rate 18 /min Height 64 inches 5'4" Weight 161.00 lb BMI (Body Mass Index) 27.6 kg/m2 BSA (Body Surface Area) 1.78 m2 [place] body weight in kilograms 54 kg O2 % BldC Oximetry 97 % Ora Ejection Fraction 70 07/13/2019 10:35am BP Systolic Sitting Left Arm 118 mmHg BP Diastolic Sitting Left Arm 72 mmHg Body Temperature 97.0 F Heart Rate 60 /min Respiratory Rate 97 /min Height 64 inches 5'4" Weight 159.00 lb BMI (Body Mass Index) 27.3 kg/m2 BSA (Body Surface Area) 1.77 m2 [place] body weight in kilograms 54 kg Results [...] 0.0 - 0.2 Laboratory test finding 07/05/2019 [facility] Troponin-I 0.499 ng/mL 1, [address] [place] [address] [phone] Thyroid Stim Hormone 1.66 uIU/mL Normal 0.30-4.20 Free T4 1.00 ng/dL Normal 0.76-1.46 CBC W/Automated 07/04/2019 [facility] White Blood 9.0 K/uL Normal 3.1-10.[address] [place] [address] [phone] Red Blood Count 5.58 M/uL High 3.90-5.40 [...] 40.4-72.8 Lymph % 37.2 % Normal 20.0-42.0 [place] % 7.4 % Normal 4.3-13.2 Eo% 1.6 % Normal 0.0-6.6 Bas% 0.6 % Normal 0.0-1.1 Immature Grans 0.4 % Normal 0.0-5.0 NRBC % 0.0 /100WBC < 10/ 100 WBC Neut# 4.75 K/uL Normal 1.8-7.0 Lymph # 3.35 K/uL Normal 1.0-4.0 [place] # 0.67 K/uL Normal 0.3-0.9 Eos # 0.14 K/uL Normal 0.0-0.5 Baso # 0.05 K/uL Normal 0.0-0.1 Immature Grans Absolute 0.04 K/uL NRBC # 0.00 K/uL Chlmaydia/GC/Trichomonas 06/29/2019 [facility] Chlamydia NEGATIVE Negative [address] trachomatis, [place] [address] PCR [phone] Neisseria gonorrhoeae, PCR NEGATIVE Negative 5 Trichomonas vaginalis PCR NEGATIVE Negative Specimen Type: Genital Chlmaydia/GC/Trichomonas 06/16/2019 [facility] Chlamydia Indeterminate Negative PCR [address] trachomatis, [place] [address] PCR [phone] Neisseria gonorrhoeae, PCR Indeterminate Negative 6 Trichomonas vaginalis PCR Indeterminate Negative 7 Specimen Type: Genital Affirm 06/16/2019 [facility] Trichomonas Negative [Negative] Vaginitis [address] [place] [address] [phone] Gardnerella vaginalis Negative [Negative] Radha species Negative [Negative] 8 Laboratory 06/08/2019 [facility] Vitamin 28.3 Low 30.0-100.0 9, 10 test finding [address] D,25-Hydroxy ng/[place] [address] [phone] Thyroid Stim Hormone 1.17 uIU/mL Normal 0.30-4.20 Free T4 1.21 ng/dL Normal 0.76-1.46 Hepatitis C Antibody < 0.1 s/corat 0.0-0.9 11 Laboratory test 03/10/2019 [facility] Thyroid 2.77 Normal 0.30-4.[address] Stim uIU/[place] [address] Hormone [phone] Free T4 0.98 ng/dL Normal 0.76-1.46 Vitamin D,25-Hydroxy 16.6 ng/mL Low 30.0-100.0 13 Chlam/GC/Trichomonas 02/24/2019 [facility] Ur Trichomonas NEGATIVE Negative 14 PCR, Ur [address] vaginalis,[place] [address] [phone] Ur Chlamydia trachomatis,PCR NEGATIVE Negative Ur Neisseria gonorrhoeae,PCR NEGATIVE Negative 15 GC/Chlamydia 02/21/2019 [facility] Chlamydia Negative Negative 16 Amplified Rna [phone] trachomatis Rna Neisseria gonorrhoeae (GC) Rna Negative [...] D deficiency has been defined by the [place] of [employer] and an Endocrine Society practice guideline as a level of serum 25-OH vitamin D less than 20 ng/mL (1,2). The Endocrine Society went on to further define vitamin D insufficiency as a level between 21 and 29 ng/mL (2). 1. IOM ([place] of Medicine). 2010. Dietary reference intakes for calcium and D. [place]: The National Academies Press. 2. Donita MF, Jacquie NC, Frederick BHAT, et al. Evaluation, treatment, and prevention of vitamin D deficiency: an Endocrine Society clinical practice guideline. JCEM. 2010; 96(7):1911-30. Performed at: [address] [id number] Service Or Work Dispatcher Chief: Louann Lewis MD, Phone: [phone] INFCE Result Units: s/co ratio Negative: < 0.8 Indeterminate: 0.8 - 0.9 Positive: > 0.9 The CDC recommends that a positive HCV antibody result be followed up with a HCV Nucleic Acid Amplification test (818761). Performed at: [address] [id number] Service Or Work Dispatcher Chief: Louann Lewis MD, Phone: [phone] 12 E03.9 E55.9 13 Vitamin D deficiency has been defined by the [place] of [employer] and an Endocrine Society practice guideline as a level of serum 25-OH vitamin D less than 20 ng/mL (1,2). The Endocrine Society went on to further define vitamin D insufficiency as a level between 21 and 29 ng/mL (2). 1. IOM ([place] [employer]). 2010. Dietary reference intakes for calcium and D. [place]: The National Academies Press. 2. Donita MF, Jacquie NC, Henry-Danny BHAT, et al. Evaluation, treatment, and prevention of vitamin D deficiency: an Endocrine Society clinical practice guideline. JCEM. 2010; 96(7):1911-30. Performed at: [address] [id number] Service Or Work Dispatcher Chief: Louann Lewis MD, Phone: [phone] A64 15 A negative result for either C. trachomatis and/or N. gonorrhoeae does not preclued an infection because results are dependent on adequate specimen collection, absence of inhibitors, and sufficient DNA to be detected. 16 [id number] Procedures Date Code Description Status 07/15/2019 65586 EKG-Tracing And Report Completed 07/13/2019 [id number] Mammogram Completed 06/29/2019 04549 Radiology, Elbow Complete Completed 06/29/2019 33487 Injection:Tendon Sheath,Lig. Cyst Completed 06/22/2019 88635 Echocardiogram Complete Completed 05/27/2017 [id number] Mammogram Completed 11/25/2016 [id number] Colonoscopy Completed 05/08/2016 [id number] Mammogram Completed 03/22/2014 [id number] Mammogram Completed 02/10/2013 [id number] Mammogram Completed 11/25/2012 [id number] Bone Mineral Density Test Completed 11/05/2011 [id number] Mammogram Completed 08/24/2010 [id number] Mammogram Completed 08/22/2009 [id number] Mammogram Completed Medical Devices Description No Information Available Encounters Type Date Location Provider Dx Diagnosis Office Visit 07/15/2019 Cardiology Office Judit, I42.1 Obstructive 11:40a Sam Sadler M.D., hypertrophic FACC cardiomyopathy I48.0 Paroxysmal atrial fibrillation I10 Essential (primary) hypertension Office Visit 07/13/2019 10:40a Primary Care Dainne Lucero, I10 Essential ( primary) Office hypertension I47.1 Supraventricular tachycardia Office Visit 06/29/2019 11:00a Primary Care Claudia Shay, A64 Unspecified Office MS, AMPOULE INSPECTOR-C, CNM sexually transmitted disease M25.521 Pain in right elbow Office Visit 06/29/2019 9:30a Orthopaedic Office Araceli Nova M25.521 Pain in MD right elbow M77.11 Lateral epicondylitis, right elbow Office Visit 06/16/2019 9:00a Primary Care Claudia Shay, Z01.419 Encntr for mat tester Office MS, AMPOULE INSPECTOR-C, CNM exam (general) (routine) w/o abn findings [...] I42.1 Obstructive hypertrophic Sam Spain M.D., cardiomyopathy [facility] 07/15/2019 I48.0 Paroxysmal atrial fibrillation Sam Spain M.D., [facility] 07/15/2019 I10 Essential (primary) hypertension Sam Spain M.D., [facility] 07/13/2019 I10 Essential (primary) hypertension Dianne Lucero MD 07/13/2019 I47.1 Supraventricular tachycardia Dianne Lucero MD 06/29/2019 M25.521 Pain in right elbow Araceli Nova MD 06/29/2019 A64 Unspecified sexually transmitted Claudia Shay, , AMPOULE INSPECTOR-C , disease [facility] 06/29/2019 M25.521 Pain in right elbow Claudia Shay, MS, AMPOULE INSPECTOR-C, CN 06/29/2019 M77.11 Lateral epicondylitis, right elbow Araceli Nova MD 06/22/2019 I42.1 Obstructive hypertrophic Sam Spain M.D., cardiomyopathy [facility] 06/16/2019 Z01.419 Encounter for gynecological Claudia Shay, MS, AMPOULE INSPECTOR-C, examination (general) (routine) CN without abnormal findings 06/16/2019 E55.9 Vitamin D deficiency, unspecified Claudia Shay, MS, AMPOULE INSPECTOR-C, CNM 06/16/2019 I10 Essential (primary) hypertension Claudia Shay, MS, AMPOULE INSPECTOR-C , CNM 06/16/2019 F17.210 Nicotine dependence, cigarettes, Claudia Shay, MS, AMPOULE INSPECTOR-C, uncomplicated CNM 06/16/2019 E03.9 Hypothyroidism, unspecified Claudia Shay, MS, AMPOULE INSPECTOR-C, CNM 06/16/2019 M77.11 Lateral epicondylitis, right elbow Claudia Shay, MS, AMPOULE INSPECTOR-C, CNM 06/16/2019 A64 Unspecified sexually transmitted Negritoen, Claudia, MS, AMPOULE INSPECTOR-C , disease CN 06/16/2019 Z12.31 Encounter for screening mammogram for Claudia Shay, MS, AMPOULE INSPECTOR-C, malignant neoplasm of breast CN 06/16/2019 Z11.59 Encounter for screening for other Laurita, Claudia, MS, AMPOULE INSPECTOR-C, viral diseases CN 05/18/2019 I10 Essential (primary) [...] Appointment(s):01/18/2020 9:00 am - Norma Last, CAROLINE, AMPOULE INSPECTOR at Cardiology Mqhpsu6309/29/2019 9:00 am - Araceli Nova MD at Orthopaedic Kmuqkl6807/15/2019 - Sam Spain M.D., FACCI42.1 Obstructive hypertrophic [...] a real sense of the burden. Her FES3MK4-MERK score is 2 (woman and HTN). She [...] Nova MD lateral epicondylitis Closed 06/29/[address], [address] [place] [address] [phone]
--- OUTSIDE RECORDS SUMMARY | 2019-08-13 09:07 | XMS REPORT | Continuity of Care Document ---
:1965 External Reference #:[id number] Author Name Araceli Nova MD Address [address] [place] [address] Care Team Providers Name Role Phone Dianne Lucero MD - Internal Medicine Care Team Information Correctional Officer Captain [phone] Josh Anthony MD - Otolaryngology Care Team Information Correctional Officer Captain [phone] Problems Active Problems Provider Date Hypertrophic Obstructive Sam Spain M.D., [facility] Onset: 12/29/2012 Cardiomyopathy Tobacco user Hao Quintana M.D. Onset: 04/23/2013 Paroxysmal supraventricular Sam Spain M.D., [facility] Onset: 01/06/2014 tachycardia Primary cardiomyopathy Sam Spain M.D., [facility] Onset: 01/06/2014 Intestinal disaccharidase deficiency Dianne Lucero [...] CPT Code Status Date Vaccine Lot # 32737 Given 12/10/2017 Pneumovax Injection 08857 Given 12/10/2017 Influenza Virus Vaccine Quadrivalent Iiv4 [place] [id number] [address] Given 12/10/2016 Influenza Virus Vaccine Split Virus Use For [id number] Individual 3Yr Older 92726 Given 05/07/2016 Tdap injection [id number] Q2038 Given 12/05/2015 Influenza Vaccine (Fluzone) Age 3 And Older [id number] Vital Signs Date Vital Result Comment 06/29/2019 9:32am BP Systolic Sitting Left Arm 145 mmHg BP Diastolic Sitting Left Arm 83 mmHg Body Temperature 98.4 F Heart Rate 51 /min Height 64 inches 5'4" Weight 162.00 lb BMI (Body Mass Index) 27.8 kg/m2 BSA (Body Surface Area) 1.79 m2 [place] body weight in kilograms 54 kg O2 % BldC Oximetry 96 % 06/16/2019 9:07am BP Systolic Sitting Left Arm 148 mmHg BP Diastolic Sitting Left Arm 88 mmHg Body Temperature 97.4 F Heart Rate 56 /min Respiratory Rate 18 /min Height 64 inches 5'4" Weight 164.00 lb BMI (Body Mass Index) 28.1 kg/m2 BSA (Body Surface Area) 1.80 m2 [place] body weight in kilograms 54 kg O2 % BldC Oximetry 96 % Ra Results Test Date Facility Test Result H/L Range Note [facility] RMP, Elbow, RT, < pending> [address] Complete (min 3 [place] [address] view) [phone] Affirm [facility] Trichomonas Negative [Negative] 1 Vaginitis Panel [address] [place] [address] [phone] Gardnerella vaginalis Negative [Negative] Radha species Negative [Negative] 2 Chlmaydia/GC/Trichomonas 06/16/2019 [facility] Chlamydia Indeterminate Negative PCR [address] trachomatis, [place] [address] PCR [phone] Neisseria gonorrhoeae, PCR Indeterminate Negative 3 Trichomonas vaginalis PCR Indeterminate Negative 4 Specimen Type: Genital Laboratory 06/08/2019 [facility] Vitamin 28.3 Low 30.0-100.0 5, 6 test finding [address] D,25-Hydroxy ng/[place] [address] [phone] Thyroid Stim Hormone 1.17 uIU/mL Normal 0.30-4.20 Free T4 1.21 ng/dL Normal 0.76-1.46 Hepatitis C Antibody < 0.1 s/corat 0.0-0.9 7 Laboratory test 03/10/2019 [facility] Thyroid 2.77 Normal 0.30-4.[address] Stim uIU/[place] [address] Hormone [phone] Free T4 0.98 ng/dL Normal 0.76-1.46 Vitamin D,25-Hydroxy 16.6 ng/mL Low 30.0-100.0 9 Chlam/GC/Trichomonas 02/24/2019 [facility] Ur Trichomonas NEGATIVE Negative 10 PCR, Ur [address] vaginalis,[place] [address] [phone] Ur Chlamydia trachomatis,PCR NEGATIVE Negative Ur Neisseria gonorrhoeae,PCR NEGATIVE Negative 11 GC/Chlamydia 02/21/2019 [facility] Chlamydia Negative Negative 12 Amplified Rna [phone] trachomatis Rna Neisseria gonorrhoeae (GC) Rna Negative Negative Comprehensive 01/06/2019 [facility] Glucose 106 mg/dL Normal 74-106 13 Metabolic Panel [address] [place] [address] [phone] BUN 22 mg/dL High 7-18 Creatinine 0.9 mg/dL 0.6-1.3 Glom Filtration Rate, Estimate >60 mL/min >60 If >60 mL/min >60 14 BUN/Creat 24.4 ratio Sodium 141 mmol/L Normal [...] 55 U/L Normal 45-117 CBS W/Automated 01/06/2019 [facility] White Blood 6.2 K/uL Normal 3.1-10.[address] [place] [address] [phone] Red Blood Count 5.01 M/uL Normal 3.90-5.40 [...] 40.4-72.8 Lymph % 36.5 % Normal 20.0-42.0 [place] % 9.9 % Normal 4.3-13.2 Eo% 1.5 % Normal 0.0-6.6 Bas% 0.3 % Normal 0.0-1.1 Neut# 3.21 K/uL Normal 1.8-7.0 Lymph # 2.26 K/uL Normal 1.0-4.0 [place] # 0.61 K/uL Normal 0.3-0.9 Eos # 0.09 K/uL Normal 0.0-0.5 Baso # 0.02 K/uL Normal 0.0-0.1 Laboratory test 01/06/2019 [facility] Thyroid 3.79 Normal 0.30-4.[address] Stim uIU/[place] [address] Hormone [phone] Free T4 0.93 ng/dL Normal 0.76-1.46 Vitamin D,25-Hydroxy 15.7 ng/mL Low 30.0-100.0 15 1 A64 2 Method: BD Affirm VPIII DNA Probe Assay 3 A negative result for either C. trachomatis and/or N. gonorrhoeae does not preclued an infection because results are dependent on adequate specimen collection, absence of inhibitors, and sufficient DNA to be detected. 4 Unable to determine results due to possible interfering substance. Specimen recollection is recommended if clinically indicated. 5 E55.9,E03.9,Z11.59 6 Vitamin D deficiency has been defined by the [place] of Medicine and an Endocrine Society practice guideline as a level of serum 25-OH vitamin D less than 20 ng/mL (1,2). The Endocrine Society went on to further define vitamin D insufficiency as a level between 21 and 29 ng/mL (2). 1. IOM ([place] of [employer]). 2010. Dietary reference intakes for calcium and D. [place]: The National AcademTerra-Gen Power Press. 2. Jacquie Mai, Frederick BHAT, et al. Evaluation, treatment, and prevention of vitamin D deficiency: an Endocrine Society clinical practice guideline. JCEM. 2010; 96(7):1911-30. Performed at: [facility] [address] [id number] Jewel Bearing Facer: Louann Lewis MD, Phone: [phone] INFCE Result Units: s/co ratio Negative: < 0.8 Indeterminate: 0.8 - 0.9 Positive: > 0.9 The CDC recommends that a positive HCV antibody result be followed up with a HCV Nucleic Acid Amplification test (535619). Performed at: [facility] [address] [id number] Jewel Bearing Facer: Louann Lewis MD, Phone: [phone] E03.9 E55.9 9 Vitamin D deficiency has been defined by the [place] of [employer] and an Endocrine Society practice guideline as a level of serum 25-OH vitamin D less than 20 ng/mL (1,2). The Endocrine Society went on to further define vitamin D insufficiency as a level between 21 and 29 ng/mL (2). 1. IOM ([place] [employer]). 2010. Dietary reference intakes for calcium and D. [place]: The National AcademTerra-Gen Power Press. 2. Jacquie Mai, Frederick BHAT, et al. Evaluation, treatment, and prevention of vitamin D deficiency: an Endocrine Society clinical practice guideline. JCEM. 2010; 96(7):1911-30. Performed at: RN - [facility] [address] [id number] Jewel Bearing Facer: Louann Lewis MD, Phone: [phone] a64 11 A negative result for either C. trachomatis and/or N. gonorrhoeae does not preclued an infection because results are dependent on adequate specimen collection, absence of inhibitors, and sufficient DNA to be detected. 12 [id number] 13 E07.9, I42.1, E55.9 14 Note: Persistent reduction for 3 months or more in an eGFR <60 mL/min/1.73 m2 defines CKD. Patients with eGFR values >/=60 mL/min/1.73 m2 may also have CKD if evidence of persistent proteinuria is present. The original MDRD equation for estimated GFR is not valid for patients less than 18 years of age. Additional information may be found at www.kdoqi.org. 15 Vitamin D deficiency has been defined by the [place] of [employer] and an Endocrine Society practice guideline as a level of serum 25-OH vitamin D less than 20 ng/mL (1,2). The Endocrine Society went on to further define vitamin D insufficiency as a level between 21 and 29 ng/mL (2). 1. IOM ([place] [employer]). 2010. Dietary reference intakes for calcium and D. [place]: The National Academies Press. 2. Donita MF, Jacquie NC, Frederick BHAT, et al. Evaluation, treatment, and prevention of vitamin D deficiency: an Endocrine Society clinical practice guideline. JCEM. 2010; 96(7):1911-30. Performed at: RN - [facility] [address] [id number] Jewel Bearing Facer: Louann Lewis MD, Phone: [phone] Procedures Date Code Description Status 06/17/2018 [id number] Mammogram Completed 05/27/2017 [id number] Mammogram Completed 11/25/2016 [id number] Colonoscopy Completed 05/08/2016 [id number] Mammogram Completed 03/22/2014 [id number] Mammogram Completed 02/10/2013 [id number] Mammogram Completed 11/25/2012 [id number] Bone Mineral Density Test Completed 11/05/2011 [id number] Mammogram Completed 08/24/2010 [id number] Mammogram Completed 08/22/2009 [id number] Mammogram Completed Medical Devices Description No Information Available Encounters Type Date Location Provider Dx Diagnosis Office Visit 06/16/2019 Primary Care Laurita, Z01.419 Encntr for credit office manager 9:00a Office MS Claudia, exam (general) ASSISTANT EXECUTIVE HOUSEKEEPER-C, CNM (routine) w/o abn findings E55.9 Vitamin D [...] MD 06/29/2019 A64 Unspecified sexually transmitted Claudia Shay MS, ASSISTANT EXECUTIVE HOUSEKEEPER-C , disease CNM 06/29/2019 M77.11 Lateral epicondylitis, right elbow Araceli Nova MD 06/16/2019 Z01.419 Encounter for gynecological Claudia Shay, MS, ASSISTANT EXECUTIVE HOUSEKEEPER-C, examination (general) (routine) CN without abnormal findings 06/16/2019 E55.9 Vitamin D deficiency, unspecified Claudia Shay, MS, ASSISTANT EXECUTIVE HOUSEKEEPER-C, CNM 06/16/2019 I10 Essential (primary) hypertension Claudia Shay, MS, ASSISTANT EXECUTIVE HOUSEKEEPER-C , CNM 06/16/2019 F17.210 Nicotine dependence, cigarettes, Claudia Shay, MS, ASSISTANT EXECUTIVE HOUSEKEEPER-C, uncomplicated CNM 06/16/2019 E03.9 Hypothyroidism, unspecified Laurita, Claudia, MS, ASSISTANT EXECUTIVE HOUSEKEEPER-C, CNM 06/16/2019 M77.11 Lateral epicondylitis, right elbow Claudia Shay, MS, ASSISTANT EXECUTIVE HOUSEKEEPER-C, CNM 06/16/2019 A64 Unspecified sexually transmitted Laurita, Claudia, MS, ASSISTANT EXECUTIVE HOUSEKEEPER-C , disease CN 06/16/2019 Z12.31 Encounter for screening mammogram Claudia Shay, , ASSISTANT EXECUTIVE HOUSEKEEPER-C, for malignant neoplasm of breast CN 06/16/2019 Z11.59 Encounter for screening for other Claudia Shay, MS, ASSISTANT EXECUTIVE HOUSEKEEPER-C, viral diseases CN 05/18/2019 I10 Essential (primary) [...] Dianne Lucero MD Plan of Treatment Future Appointment(s):08/03/2019 10:00 am - Claudia Shay MS, ASSISTANT EXECUTIVE HOUSEKEEPER-C, CNM at Primary Care Aokmju6908/03/2019 8:40 am - Norma Last, CAROLINE, ASSISTANT EXECUTIVE HOUSEKEEPER at Cardiology Zproso3006/29/2019 - Claudia Shay MS, PERRI-Jimbo, [id number] Unspecified sexually transmitted disease Functional Status Functional Condition Comment Date Status Independent with all ADL's Active Contacts Active Mental Status Description No Information Available Referrals Refer to Reason for Referral Status Appt Date Araceli Nova MD lateral epicondylitis Scheduled 06/29/2019 [address], [address] [place] [address] [phone]
--- OUTSIDE RECORDS SUMMARY | 2019-08-13 09:08 | XMS REPORT | Continuity of Care Document ---
:1965 External Reference #:[id number] Author Name Claudia Shay, , [employer], [place] Address [address] [facility] [facility] [place] [address] Care Team Providers Name Role Phone Dianne Lucero MD Care Team Information Scorer Single Unavailable Dianne Lucero MD Primary Care Physician Unavailable Payers Date Identification Numbers Payment Provider Subscriber Effective: 2016 Policy Number: [id number] [employer] Luz Lara PayID: [id number] [address] [place] [address] Problems Active Problems Provider Date Hypertrophic Obstructive Sam Spain M.D., FACC Onset: 12/29/2012 Cardiomyopathy Tobacco user Hao Quintana M.D. Onset: 04/23/2013 Paroxysmal supraventricular Sam Spain M.D., FACC Onset: 01/06/2014 tachycardia Primary cardiomyopathy Sam Spain M.D., FACC Onset: 01/06/2014 Intestinal disaccharidase deficiency Dianne Lucero [...] abuse counseling Dianne Lucero MD Onset: 01/20/2018 Family History Date Family Member(s) Observation Comments [...] smokes 1/2 Pack Daily Smoking Status Reviewed: 06/19/19 currently smokes 1/2 Pack Daily Smokeless Tobacco [...] Lisinopril 1 by mouth every 30tabs I10 Jazmine, 05/18/2019 - 5mg Tablets day MD Dianne 06/16/2019 Levothyroxine Sodium 1 tab by mouth 30tabs Jazmine, 01/13/2019 - every day MD Dianne 03/17/2019 25mcg Tablets Nicotrol inhale and use up 168units F17.210 Jazmine, 01/13/2019 - 10mg Inhaler to 6 cartridges a MD Dianne 04/30/2019 day Bupropion HCL ER 1 tab by mouth 60tabs Jazmine, 01/20/2018 - (Smoking Det) every day x 7 days MD Dianne 07/09/2018 150mg then 1 tab by Tablets ER 12HR mouth twice a day Amoxicillin 1 tab by mouth 20caps Jazmine, 01/20/2018 - 500mg twice a day x 10 MD Dianne 07/09/2018 Capsules days Vitamin D take 1 capsule by 4caps Jazmine, 12/10/2017 - (Ergocalciferol) mouth every week MD Dianne 03/17/2019 [id number] Capsules Bupropion HCL ER 1 tab by mouth 60tabs Jazmine, 12/10/2017 - (Smoking Det) every day x3 days MD Dianne 01/20/2018 150mg then 1 tab by Tablets ER 12HR mouth twice a day Golytely drink half the 4000ml Z12.11 Srinivasan Florez MD 06/21/2017 - 236gm Solution evening before and Unknown Rec half the morning of the procedure (1 cup every 10') Dulcolax 4 tablets taken a 4tabs Z12.11 Srinivasan Florez MD 06/21/2017 - 5mg Tablets DR 8pm the day before Unknown the procedure Magnesium Citrate 1 bottle po x one 296ml Z12.11 Srinivasan Florez MD 06/21/2017 - as directed Unknown 1.745GM/30ML Solution Hyoscyamine Sulfate 1 tab by mouth 90tabs R10.9 Srinivasan Florez MD 06/21/2017 - three times a day Unknown 0.125mg Tablets as needed for abd pain Metoprolol Succinate take 2 tablet by 30tabs E55.9 Norma Last 2015 - ER mouth every Simonetta, 05/18/2019 25mg Tablets ER 24HR evening MSN, [employer] Tessalon Perles 1 tab by mouth 30caps Jazmine, 09/13/2016 - 100mg every 8 hours as MD Dianne Unknown Capsules needed for cough Nasacort Allergy 24HR 2 sprays both 32.4ml Jazmine, 09/13/2016 - nostrils every day MD Dianne Unknown 55mcg/Act Aerosol prn Chantix continuation packs 60tabs F17.200 Davidenko, 04/10/2016 - 1mg Tablets - 1mg by mouth Sam Sadler, 12/10/2017 daily MEbonie, FAC Verapamil HCL ER 1 by mouth every 90caps E55.9 Last, Norma 03/15/2016 - 120mg day Simonetta, 10/15/2016 Caps ER 24HR MSN, [employer] Vitamin D 1 by mouth every Jazmine, 03/12/2016 - 2000Unit day MD Dianne Unknown Capsules Bisoprolol Fumarate 1 tab by mouth 30tabs E55.9 Last, Norma 03/12/2016 - 5mg every evening Simonetta, 03/15/2016 Tablets MSN, [employer] Amoxicillin/Clavulana Every 12 Hours 20tabs Unknown 02/07/2016 - te Potassium 02/21/2016 875-125mg Tablets Benzonatate Every 8 Hours as 20caps Unknown 02/07/2016 - 200mg Needed prn Cough Unknown Capsules Metoprolol Tartrate 1 by mouth Q hs 60tabs E55.9 Last, Norma 01/30/2016 - Simonetta, 03/12/2016 25mg Tablets MSN, [employer] Ergocalciferol 1 tab by mouth 12caps E55.9 Jazmine, 12/13/2015 - every week for 12 MD Dianne Unknown [id number] Capsules weeks then stop and take maintenance over the counter Lactase Enzyme Fast 1 tab by mouth 90tabs Jazmine, 12/05/2015 - Acting three times a day MD Dianne Unknown 9000Unit Tablets as needed with dairy containing meals Vitamin D-400 2 by mouth every Jazmine, 12/05/2015 - 400Unit day MD Dianne Unknown Tablets Paroxetine HCL 1 by mouth every 90tabs Jameel, 05/16/2015 - 10mg day MD Nathaniel Unknown Tablets No Active Medications Unknown 01/17/2015 - 01/17/2015 Vitamin D-3 1 by mouth every 90tabs Jameel, 08/25/2014 - 5000Unit matheus Armstrong MD 12/05/2015 Tablets Levothyroxine Sodium 1 po qd 60tabs Unknown - Unknown 50mcg Tablets Vitamin D 1 po qd Unknown - [id number] 12/05/2015 Capsules Vitamin D 1 po q week 60caps Unknown - 50,000Units Unknown Capsules Ra Vitamin D-3 Unknown - 4999Unit 12/05/2015 Capsules Vitamin D3 Once Daily Unknown - 2000Unit Unknown Tablets Prempro 1 daily Oh, In-Autumnarnol, - 0.3-1.5mg 01/13/2019 Tablets Immunizations CPT Code Status Date Vaccine Lot # [id number] Given 12/10/2017 Pneumovax Injection 00790 Given 12/10/2017 Influenza Virus Vaccine Quadrivalent Iiv4 [place] [id number] [id number] Given 12/10/2016 Influenza Virus Vaccine Split Virus Use For [id number] Individual 3Yr Older [id number] Given 05/07/2016 Tdap injection [id number] Given 12/05/2015 Influenza Vaccine (Fluzone) Age 3 And Older [id number] Vital Signs Date Vital Result Comment 06/16/2019 9:07am BP Systolic Sitting Left Arm 148 mmHg BP Diastolic Sitting Left Arm 88 mmHg Body Temperature 97.4 F Heart Rate 56 /min Respiratory Rate 18 /min Height 64 inches 5'4" Weight 164.00 lb BMI (Body Mass Index) 28.1 kg/m2 BSA (Body Surface Area) 1.80 m2 [place] body weight in kilograms 54 kg O2 % BldC Oximetry 96 % Ra 05/18/2019 8:21am BP Systolic 142 mmHg BP Diastolic 88 mmHg BP Systolic Sitting Left Arm 152 mmHg BP Diastolic Sitting Left Arm 88 mmHg Body Temperature 97.4 F Heart Rate 58 /min Respiratory Rate 18 /min Height 64 inches 5'4" Weight 165.00 lb BMI (Body Mass Index) 28.3 kg/m2 BSA (Body Surface Area) 1.80 m2 [place] body weight in kilograms 54 kg O2 % BldC Oximetry 98 % Ra 04/30/2019 9:05am BP Systolic Sitting Left Arm 148 mmHg BP Diastolic Sitting Left Arm 86 mmHg Heart Rate 57 /min Respiratory Rate 20 /min Height 64 inches 5'4" Weight 158.00 lb BMI (Body Mass Index) 27.1 kg/m2 BSA (Body Surface Area) 1.77 m2 [place] body weight in kilograms 54 kg O2 % BldC Oximetry 97 % 03/17/2019 11:18am BP Systolic Sitting Left Arm 136 mmHg BP Diastolic Sitting Left Arm 84 mmHg Body Temperature 99.1 F Heart Rate 62 /min Respiratory Rate 18 /min Height 64 inches 5'4" Weight 166.00 lb BMI (Body Mass Index) 28.5 kg/m2 BSA (Body Surface Area) 1.81 m2 [place] body weight in kilograms 54 kg O2 % BldC Oximetry 96 % 02/24/2019 10:18am BP Systolic Sitting Left Arm 140 mmHg BP Diastolic Sitting Left Arm 88 mmHg Body Temperature 98.7 F Heart Rate 67 /min Respiratory Rate 16 /min Height 64 inches 5'4" Weight 165.00 lb BMI (Body Mass Index) 28.3 kg/m2 BSA (Body Surface Area) 1.80 m2 [place] body weight in kilograms 54 kg O2 % BldC Oximetry 97 % 01/13/2019 10:14am BP Systolic Sitting Left Arm 114 mmHg BP Diastolic Sitting Left Arm 82 mmHg Body Temperature 97.6 F Heart Rate 67 /min Respiratory Rate 16 /min Height 64 inches 5'4" Weight 168.00 lb BMI (Body Mass Index) 28.8 kg/m2 BSA (Body Surface Area) 1.82 m2 [place] body weight in kilograms 54 kg O2 % BldC Oximetry 96 % 07/14/2018 9:30am BP Systolic Sitting Right Arm 130 mmHg BP Diastolic Sitting Right Arm 80 mmHg Heart Rate 64 /min Respiratory Rate 16 /min Height 64 inches 5'4" Weight 162.00 lb BMI (Body Mass Index) 27.8 kg/m2 BSA (Body Surface Area) 1.79 m2 [place] body weight in kilograms 54 kg 07/09/2018 12:56pm BP Systolic 122 mmHg BP Diastolic 72 mmHg Body Temperature 97.6 F Heart Rate 54 /min Respiratory Rate 18 /min Height 64 inches 5'4" Weight 162.00 lb BMI (Body Mass Index) 27.8 kg/m2 BSA (Body Surface Area) 1.79 m2 [place] body weight in kilograms 54 kg O2 % BldC Oximetry 97 % 01/20/2018 10:34am BP Systolic Sitting Right Arm 153 mmHg BP Diastolic Sitting Right Arm 88 mmHg Body Temperature 98.8 F Heart Rate 79 /min Height 64 inches 5'4" Weight 165.00 lb BMI (Body Mass Index) 28.3 kg/m2 BSA (Body Surface Area) 1.80 m2 [place] body weight in kilograms 54 kg 12/16/2017 9:15am BP Systolic Sitting Right Arm 132 mmHg BP Diastolic Sitting Right Arm 84 mmHg Heart Rate 68 /min Respiratory Rate 14 /min Height 64 inches 5'4" Weight 164.00 lb BMI (Body Mass Index) 28.1 kg/m2 BSA (Body Surface Area) 1.80 m2 [place] body weight in kilograms 54 kg 12/10/2017 9:16am BP Systolic Sitting Right Arm 128 mmHg BP Diastolic Sitting Right Arm 78 mmHg Body Temperature 98.3 F Heart Rate 58 /min Height 64 inches 5'4" Weight 164.00 lb BMI (Body Mass Index) 28.1 kg/m2 BSA (Body Surface Area) 1.80 m2 [place] body weight in kilograms 54 kg 06/21/2017 8:41am BP Systolic Sitting Left Arm 118 mmHg BP Diastolic Sitting Left Arm 72 mmHg Heart Rate 54 /min Respiratory Rate 16 /min Height 64 inches 5'4" Weight 161.00 lb BMI (Body Mass Index) 27.6 kg/m2 BSA (Body Surface Area) 1.78 m2 [place] body weight in kilograms 54 kg 06/10/2017 9:15am BP Systolic 136 mmHg BP Diastolic 77 mmHg Body Temperature 97.4 F Heart Rate 54 /min Respiratory Rate 16 /min Height 64 inches 5'4" Weight 160.00 lb BMI (Body Mass Index) 27.5 kg/m2 BSA (Body Surface Area) 1.78 m2 [place] body weight in kilograms 54 kg O2 % BldC Oximetry 96 % 05/13/2017 9:48am BP Systolic Sitting Right Arm 132 mmHg BP Diastolic Sitting Right Arm 80 mmHg Heart Rate 55 /min Respiratory Rate 18 /min Height 64 inches 5'4" Weight 160.00 lb BMI (Body Mass Index) 27.5 kg/m2 BSA (Body Surface Area) 1.78 m2 [place] body weight in kilograms 54 kg 12/10/2016 [...] Date Facility Test Result H/L Range Note Affirm 06/16/2019 [facility] Trichomonas Negative [Negative] 1 Vaginitis Panel [address] vaginalis [place], [place] [id number] [phone] Gardnerella vaginalis Negative [Negative] Rdaha species Negative [Negative] 2 Chlmaydia/GC/Trichomonas 06/16/2019 [facility] Chlamydia Indeterminate Negative PCR [address] trachomatis, [place] [address] PCR [phone] Neisseria gonorrhoeae, PCR Indeterminate Negative 3 Trichomonas vaginalis PCR Indeterminate Negative 4 Specimen Type: Genital Laboratory 06/08/2019 [facility] Vitamin 28.3 Low 30.0-100.0 5, 6 test finding [address] D,25-Hydroxy ng/mL [place], [place] [id number] [phone] Thyroid Stim Hormone 1.17 uIU/mL Normal 0.30-4.20 Free T4 1.21 ng/dL Normal 0.76-1.46 Hepatitis C Antibody < 0.1 s/corat 0.0-0.9 7 Laboratory test 03/10/2019 [facility] Thyroid 2.77 Normal 0.30-4.20 [address] Stim uIU/[place] [address] Hormone [phone] Free T4 0.98 ng/dL Normal 0.76-1.46 Vitamin D,25-Hydroxy 16.6 ng/mL Low 30.0-100.0 9 Chlam/GC/Trichomonas 02/24/2019 [facility] Ur Trichomonas NEGATIVE Negative 10 PCR, Ur [address] vaginalis,[place] [address] [phone] Ur Chlamydia trachomatis,PCR NEGATIVE Negative Ur Neisseria gonorrhoeae,PCR NEGATIVE Negative 11 GC/Chlamydia 02/21/2019 [facility] Chlamydia Negative Negative 12 Amplified Rna [phone] trachomatis Rna Neisseria gonorrhoeae (GC) Rna Negative Negative Comprehensive 01/06/2019 [facility] Glucose 106 mg/dL Normal 74-106 13 Metabolic Panel [address] [place], [place] [id number] [phone] BUN 22 mg/dL High 7-18 Creatinine 0.9 [...] 55 U/L Normal 45-117 CBS W/Automated 01/06/2019 [facility] White Blood 6.2 K/uL Normal 3.1-10.[address] Count [place], [place] [address] [phone] Red Blood Count 5.01 M/uL Normal 3.90-5.40 [...] 40.4-72.8 Lymph % 36.5 % Normal 20.0-42.0 [place] % 9.9 % Normal 4.3-13.2 Eo% 1.5 % Normal 0.0-6.6 Bas% 0.3 % Normal 0.0-1.1 Neut# 3.21 K/uL Normal 1.8-7.0 Lymph # 2.26 K/uL Normal 1.0-4.0 [place] # 0.61 K/uL Normal 0.3-0.9 Eos # 0.09 K/uL Normal 0.0-0.5 Baso # 0.02 K/uL Normal 0.0-0.1 Laboratory test 01/06/2019 [facility] Thyroid 3.79 Normal 0.30-4.[address] Stim uIU/[place] [address] Hormone [phone] Free T4 0.93 ng/dL Normal 0.76-1.46 Vitamin D,25-Hydroxy 15.7 ng/mL Low 30.0-100.0 15 Laboratory 06/06/2018 [facility] Vitamin 21.1 Low 30.0-100.0 16, 17 test finding [address] D,25-Hydroxy ng/[place] [address] [phone] Free T4 1.03 ng/dL Normal 0.76-1.46 Thyroid Stim Hormone 2.37 uIU/mL Normal 0.30-4.20 CBS W/Automated 06/06/2018 [facility] White Blood 6.8 K/uL Normal 3.1-10.[address] [place] [address] [phone] Red Blood Count 4.89 M/uL Normal 3.90-5.40 Hemoglobin 15.3 gm/dL Normal 11.6-15.8 Hematocrit 43.9 % Normal 36.0-46.1 Mean Cell Volume 89.8 fl Normal 80.9-99.0 Mean Corpuscular HGB 31.3 pg Normal 25.9-32.7 Mean Corpuscular HGB Conc 34.9 g/dL High 30.8-34.3 Platelet Count 140 K/uL Low 155-360 Red Cell Distri Width SD 42.4 fl Normal 3-47 Red Cell Distri Width %CV 13.2 % Normal 11.7-14.4 Mean Platelet Volume 12.6 fL High 8.9-12.4 Neut% 56.5 % Normal 40.4-72.8 Lymph % 34.0 % Normal 20.0-42.0 [place] % 8.0 % Normal 4.3-13.2 Eo% 1.2 % Normal 0.0-6.6 Bas% 0.3 % Normal 0.0-1.1 Neut# 3.84 K/uL Normal 1.8-7.0 Lymph # 2.31 K/uL Normal 1.0-4.0 [place] # 0.54 K/uL Normal 0.3-0.9 Eos # 0.08 K/uL Normal 0.0-0.5 Baso # 0.02 K/uL Normal 0.0-0.1 Comprehensive 06/06/2018 [facility] Glucose 97 mg/dL Normal 74-106 Metabolic Panel [address] [place] [address] [phone] BUN 16 mg/dL Normal 7-18 Creatinine 0.7 mg/dL Normal 0.6-1.3 Glom Filtration Rate, Estimate >60 mL/min >60 If >60 mL/min >60 18 BUN/Creat 22.8 ratio Sodium 141 mmol/L Normal 136-145 Potassium 4.3 mmol/L Normal 3.5-5.1 Chloride 109 mmol/L High 98-107 Carbon Dioxide 26 mmol/L Normal 21-32 Anion Gap 6 mEq/L Low 8-16 Calcium 8.7 mg/dL Normal 8.5-10.1 Total Protein 6.8 g/dL Normal 6.4-8.2 Albumin 4.1 g/dL Normal 3.4-5.0 Globulin 2.7 g/dL Normal 1.9-4.3 Alb/Glob 1.5 ratio Bilirubin,Total 0.5 mg/dL Normal 0.2-1.0 Sgot/Ast 15 U/L Normal 15-37 SGPT/Alt 23 U/L Normal 12-78 Alkaline Phosphatase 48 U/L Normal 45-117 LDL Cholesterol Profile 06/06/2018 [facility] Cholesterol 159 mg/dL <200 19 [address] [place] [address] [phone] Triglycerides 112 mg/dL <150 20 HDL Cholesterol 46 mg/dL >40 21 LDL-Cholesterol 91 mg/dL < 100 22 Comprehensive 12/03/2017 [facility] Glucose 102 mg/dL Normal 74-106 23 Metabolic Panel [address] [place] [address] [phone] BUN 19 mg/dL High 7-18 Creatinine 0.8 mg/dL Normal 0.6-1.3 Glom Filtration Rate, Estimate >60 mL/min >60 If >60 mL/min >60 24 BUN/Creat 23.7 ratio Sodium 142 mmol/L Normal 136-145 Potassium 4.3 mmol/L Normal 3.5-5.1 Chloride 107 mmol/L Normal 98-107 Carbon Dioxide 27 mmol/L Normal 21-32 Anion Gap 8 mEq/L Normal 8-16 Calcium 9.3 mg/dL Normal 8.5-10.1 Total Protein 7.0 g/dL Normal 6.4-8.2 Albumin 4.2 g/dL Normal 3.4-5.0 Globulin 2.8 g/dL Normal 1.9-4.3 Alb/Glob 1.5 ratio Bilirubin,Total 0.5 mg/dL Normal 0.2-1.0 Sgot/Ast 14 U/L Low 15-37 25 SGPT/Alt 23 U/L Normal 12-78 Alkaline Phosphatase 54 U/L Normal 45-117 CBS W/Automated 12/03/2017 [facility] White Blood 7.5 K/uL Normal 3.1-10.7 Diff [address] [place] [address] [phone] Red Blood Count 5.01 M/uL Normal 3.90-5.40 Hemoglobin 15.1 gm/dL Normal 11.6-15.8 Hematocrit 44.3 % Normal 36.0-46.1 Mean Cell Volume 88.4 fl Normal 80.9-99.0 Mean Corpuscular HGB 30.1 pg Normal 25.9-32.7 Mean Corpuscular HGB Conc 34.1 g/dL Normal 30.8-34.3 Platelet Count 149 K/uL Low 155-360 Red Cell Distri Width SD 42.4 fl Normal 3-47 Red Cell Distri Width %CV 13.3 % Normal 11.7-14.4 Mean Platelet Volume 12.8 fL High 8.9-12.4 Neut% 53.4 % Normal 40.4-72.8 Lymph % 37.6 % Normal 20.0-42.0 [place] % 7.5 % Normal 4.3-13.2 Eo% 1.1 % Normal 0.0-6.6 Bas% 0.4 % Normal 0.0-1.1 Neut# 4.00 K/uL Normal 1.8-7.0 Lymph # 2.81 K/uL Normal 1.0-4.0 [place] # 0.56 K/uL Normal 0.3-0.9 Eos # 0.08 K/uL Normal 0.0-0.5 Baso # 0.03 K/uL Normal 0.0-0.1 Laboratory 12/03/2017 [facility] Vitamin 17.0 Low 30.0-100.0 26 test finding [address] D,25-Hydroxy ng/[place] [address] [phone] Laboratory 06/24/2017 [facility] Sedimentation 1 mm/hr Normal 0-30 27, test finding [address] Rate 28 [place] [address] [phone] Calprotectin, Fecal < 16 ug/g 0-120 29 Fecal Fat, Qualitative 06/24/2017 [facility] Fats, Neutral Normal . [address] [place] [address] [phone] Fats, Total Normal . 31 Laboratory test 06/24/2017 [facility] C-Reactive < 2.9 mg/L <3.[address] Protein,[place] [address] [phone] Pancreatic Elastase (Pe-1) > 500.0 ug/g >200 32 Stool Culture 06/23/2017 [facility] Stool Culture NO ENTERIC PATHO [address] <SEE NOTE> [place] [address] [phone] . ................ <SEE NOTE> Normal 34 Note: INCLUDES TESTING <SEE NOTE> Normal 35 . PLESIOMONAS, CAM <SEE NOTE> Normal 36 . ................ <SEE NOTE> Normal 37 . YERSINIA AND VIB <SEE NOTE> Normal 38 . SHOULD BE REQUES <SEE NOTE> Normal 39 Shiga Toxin 1 Antigen SHIGA TOXIN 1 NO <SEE NOTE> 40 Shiga Toxin 2 Antigen SHIGA TOXIN 2 NO <SEE NOTE> 41 Laboratory test 06/23/2017 [facility] C. Difficile Toxin B C-DIFF TOXIN [address] By PCR B: <[place] [address] NOTE> [phone] Ova & Parasite 06/23/2017 [facility] Cryptosporidium NEGATIVE FOR 43 Antigen Screen [address] Specific Ag CRY <[place] [address] NOTE> [phone] Giardia Specific Antigen NEGATIVE FOR SIL <SEE NOTE> 44 CBS W/Automated 05/31/2017 [facility] White 7.3 K/uL Normal 3.1-10.7 [address] [place] [address] Count [phone] Red Blood Count 4.78 M/uL Normal 3.90-5.40 Hemoglobin 14.7 gm/dL Normal 11.6-15.8 Hematocrit 42.6 % Normal 36.0-46.1 Mean Cell Volume 89.1 fl Normal 80.9-99.0 Mean Corpuscular HGB 30.8 pg Normal 25.9-32.7 Mean Corpuscular HGB Conc 34.5 g/dL High 30.8-34.3 Platelet Count 140 K/uL Low 150-400 Red Cell Distri Width SD 41.6 fl Normal 3-47 Red Cell Distri Width %CV 13.1 % Normal 11.7-14.4 Mean Platelet Volume 13.2 fL High 8.9-12.4 Neut% 54.9 % Normal 40.4-72.8 Lymph % 37.1 % Normal 20.0-42.0 [place] % 6.5 % Normal 4.3-13.2 Eo% 1.1 % Normal 0.0-6.6 Bas% 0.4 % Normal 0.0-1.1 Neut# 3.99 K/uL Normal 1.8-7.0 Lymph # 2.70 K/uL Normal 1.0-4.0 [place] # 0.47 K/uL Normal 0.3-0.9 Eos # 0.08 K/uL Normal 0.0-0.5 Baso # 0.03 K/uL Normal 0.0-0.1 Comprehensive 05/31/2017 [facility] Glucose 94 mg/dL Normal 74-106 Metabolic Panel [address] [place] [address] [phone] BUN 16 mg/dL Normal 7-18 Creatinine 0.8 mg/dL Normal 0.6-1.3 Glom Filtration Rate, Estimate >60 mL/min >60 If >60 mL/min >60 46 BUN/Creat 20.0 ratio Sodium 141 mmol/L Normal 136-145 Potassium 4.3 mmol/L Normal 3.5-5.1 Chloride 109 mmol/L High 98-107 Carbon Dioxide 23 mmol/L Normal 21-32 Anion Gap 9 mEq/L Normal 8-16 Calcium 8.6 mg/dL Normal 8.5-10.1 Total Protein 6.9 g/dL Normal 6.4-8.2 Albumin 4.1 g/dL Normal 3.4-5.0 Globulin 2.8 g/dL Normal 1.9-4.3 Alb/Glob 1.5 ratio Bilirubin,Total 0.3 mg/dL Normal 0.2-1.0 Sgot/Ast 18 U/L Normal 15-37 SGPT/Alt 21 U/L Normal 12-78 Alkaline Phosphatase 65 U/L Normal 45-117 LDL Cholesterol Profile 05/31/2017 [facility] Cholesterol 180 mg/dL <200 47 [address] [place] [address] [phone] Triglycerides 151 mg/dL High <150 48 HDL Cholesterol 52 mg/dL >40 49 LDL-Cholesterol 98 mg/dL < 100 50 Laboratory 05/31/2017 [facility] Vitamin 17.2 Low 30.0-100.0 51 test finding [address] D,25-Hydroxy ng/[place] [address] [phone] Laboratory 02/07/2016 N2N/CCD Import Blood Gas 61 [...] Width 39.8 3-47 Sodium Level 140 136-145 Laboratory test 12/06/2015 [facility] Vitamin 15.6 Low 30.0-100.0 [address] D,25-Hydroxy ng/mL [place], [place] [id number] [phone] LDL Cholesterol 12/06/2015 [facility] Cholesterol 194 <200 [address] mg/[place] [address] [phone] Triglycerides 126 mg/dL <150 54 HDL Cholesterol 55 mg/dL >40 55 LDL-Cholesterol 114 mg/dL < 100 56 CBC W/Automated Diff 12/06/2015 [facility] White Blood 6.2 K/uL 3.1-10.[address] [place] [address] [phone] Red Blood Count 4.92 M/uL 3.90-5.40 Hemoglobin [...] % 40.4-72.8 Lymph % 34.5 % 17.0-46.1 [place] % 7.6 % 4.3-13.2 Eo% 2.3 % 0.0-6.6 Bas% 0.5 % 0.0-1.1 Neut# 3.41 K/uL 1.8-7.0 Lymph # 2.13 K/uL 1.8-7.0 [place] # 0.47 K/uL 0.3-0.9 Eos # 0.14 K/uL 0.0-0.5 Baso # 0.03 K/uL 0.0-0.1 Comprehensive Metabolic 12/06/2015 [facility] Glucose 97 mg/dL 74-106 Panel [address] [place] [address] [phone] BUN 18 mg/dL 7-18 Creatinine 0.9 mg/dL 0.6-1.3 Glom Filtration Rate, Estimate >60 mL/min >60 If >60 mL/min >60 57 BUN/Creat 20.0 ratio Sodium 140 mmol/L 136-145 [...] U/L 12-78 Alkaline Phosphatase 66 U/L 45-117 Comprehensive Metabolic Panel 12/24/2014 N2N/CCD Import Alb/Glob [...] 94 mg/dL 74-106 If >60 mL/min >60 58 Potassium 4.2 mmol/L 3.5-5.1 SGPT/Alt 31 U/L 12-78 Sgot/Ast 20 U/L 15-37 Sodium 142 mmol/L 136-145 Total Protein 6.7 g/dL 6.4-8.2 Glycohemoglobin A1c 12/24/2014 N2N/CCD Import Glycohemoglobin (A1c) 5.7 % 4.2-6.3 59 eAG 117 mg/dL Vitamin B12 And Folate 12/24/2014 N2N/CCD Import Folic Acid 17.1 ng/mL 3.1-17.5 Vitamin B12 359 pg/mL 193-986 60 CBC W/Automated Diff 12/24/2014 N2N/CCD Import Bas% 0.6 % 0.0-1.1 Baso # 0.03 K/uL 0.0-0.1 Eo% 1.3 % 0.0-6.6 Eos # 0.07 K/uL 0.0-0.5 Hematocrit 45.9 % 36.0-46.1 Hemoglobin 15.7 gm/dL 11.6-15.8 Lymph # 2.11 K/uL 0.8-3.4 Lymph % 39.7 % 17.0-46.1 Mean Cell Volume 85.8 fl 80.9-99.0 Mean Corpuscular HGB 29.3 pg 25.9-32.7 Mean Corpuscular HGB Conc 34.2 g/dL 30.8-34.3 Mean Platelet Volume 12.5 fL High 8.9-12.4 [place] # 0.39 K/uL 0.3-0.9 [place] % 7.3 % 4.3-13.2 Neut# 2.71 K/uL 1.0-7.0 Neut% 51.1 % 40.4-72.8 Platelet Count 161 K/uL 155-360 Red Blood Count 5.35 M/uL 3.90-5.40 Red Cell Distri Width %CV 13.0 % 11.7-14.4 Red Cell Distri Width SD 39.9 fl 3-47 White Blood Count 5.3 K/uL 3.1-10.7 Laboratory test 12/24/2014 N2N/CCD Import Anti-Dna Antibody <1 Iu/ml 0- 9 61 finding ([place]) Antichromatin Antibodies <0.2 0.0-0.9 Ferritin 47.0 ng/mL 8-252 Free T3 4.25 pg/mL High 2.18-3.98 Free T4 1.22 ng/dL 0.76-1.46 [place] Screen (Heteroph[facility]) Negative Negative BARBER [employer]CTOR Antibody <0.2 0.0-0.9 Ra Latex Turbid. 9.6 IU/mL 0.0-13.9 Rheumatoid Factor Screen < 10.0 Iu/ml 0.0-15.0 SM Antibody <0.2 0.0-0.9 Sjogrens Antibodies (SSB) <0.2 0.0-0.9 62 Sjogrens Antibodies (Ssa) <0.2 0.0-0.9 TSH Reflex FT4 and/or FT3 < 0.01 uIU/mL Low 0.36-3.74 63 Uric Acid 4.6 mg/dL 2.6-6.0 Vitamin D,25-Hydroxy 20.0 ng/mL Low 30.0-100.0 64 1 A64 2 Method: BD Affirm VPIII [...] D deficiency has been defined by the [place] [employer] and an Endocrine Society practice guideline as a level of serum 25-OH vitamin D less than 20 ng/mL (1,2). The Endocrine Society went on to further define vitamin D insufficiency as a level between 21 and 29 ng/mL (2). 1. IOM ([place] [employer]). 2010. Dietary reference intakes for calcium and D. [place]: The National Academies Press. 2. Jacquie Mai, [place] BHAT, et al. Evaluation, treatment, and prevention of vitamin D deficiency: an Endocrine Society clinical practice guideline. JCEM. 2010; 96(7):1911-30. Performed at: [facility] [email or web address] [id number] Physician/Internist: Louann Lewis MD, Phone: [phone] INFCE Result Units: s/co ratio Negative: < 0.8 Indeterminate: 0.8 - 0.9 Positive: > 0.9 The CDC recommends that a positive HCV antibody result be followed up with a HCV Nucleic Acid Amplification test ([id number]). Performed at: [facility] [employer] [id number] Physician/Internist: Louann Lewis MD, Phone: [phone] E03.9 E55.9 9 Vitamin D deficiency has been defined by the [place] [employer] and an Endocrine Society practice guideline as a level of serum 25-OH vitamin D less than 20 ng/mL (1,2). The Endocrine Society went on to further define vitamin D insufficiency as a level between 21 and 29 ng/mL (2). 1. IOM ([place] [employer]). 2010. Dietary reference intakes for calcium and D. [place]: The National Academies Press. 2. Jacquie Mai, Frederick BHAT, et al. Evaluation, treatment, and prevention of vitamin D deficiency: an Endocrine Society clinical practice guideline. JCEM. 2010; 96(7):1911-30. Performed at: [facility] [id number] Physician/Internist: Louann Lewis MD, Phone: [phone] 10 a64 11 A negative result for either C. trachomatis and/or N. gonorrhoeae does not preclued an infection because results are dependent on adequate specimen collection, absence of inhibitors, and sufficient DNA to be detected. 12 [id number] 13 E07.9, I42.1, E55.9 14 Note: Persistent [...] D deficiency has been defined by the [place] [employer] and an Endocrine Society practice guideline as a level of serum 25-OH vitamin D less than 20 ng/mL (1,2). The Endocrine Society went on to further define vitamin D insufficiency as a level between 21 and 29 ng/mL (2). 1. IOM ([place] [employer]). 2010. Dietary reference intakes for calcium and D. [place]: The National Academies Press. 2. Donita COLE, Jacquie CARMEN, Frederick BHAT, et al. Evaluation, treatment, and prevention of vitamin D deficiency: an Endocrine Society clinical practice guideline. JCEM. 2010; 96(7):1911-30. Performed at: - [facility] [id number] Physician/Internist: Louann Lewis MD, Phone: [phone] 16 E55.9 F17.210 F17.210 I42.1 E55.9 F17.210 I42.1 E07.9 I42.1 17 Vitamin D deficiency has been defined by the [place] [employer] and an Endocrine Society practice guideline as a level of serum 25-OH vitamin D less than 20 ng/mL (1,2). The Endocrine Society went on to further define vitamin D insufficiency as a level between 21 and 29 ng/mL (2). 1. IOM ([place] [employer]). 2010. Dietary reference intakes for calcium and D. [place]: The National Academies Press. 2. Jacquie Mai, Frederick BHAT, et al. Evaluation, treatment, and prevention of vitamin D deficiency: an Endocrine Society clinical practice guideline. JCEM. 2011 May; 96(7):1911-30. Performed at: RN - [facility] [address] [id number] Physician/Internist: Louann Lewis MD, Phone: [phone] 18 Note: Persistent reduction for 3 months or more in an eGFR <60 mL/min/1.73 m2 defines CKD. Patients with eGFR values >/=60 mL/min/1.73 m2 may also have CKD if evidence of persistent proteinuria is present. The original MDRD equation for estimated GFR is not valid for patients less than 18 years of age. Additional information may be found at www.kdoqi.org. 19 Reference Guidelines*: Desirable: ........... < 200 mg/dL Borderline High: ..... 200-239 mg/dL High: ................ >= 240 mg/dL * The National Cholesterol Education Program (NCEP) 20 Reference Guidelines*: Normal: ............. < 150 mg/dL Borderline High: .... 150-199 mg/dL High: ............... 200-499 mg/dL Very High: .......... > 500 mg/dL * Source: National Cholesterol Education Program (NCEP) 21 Reference Guidelines*: Low HDL: ..... < 40 mg/dL Normal: ..... 40-60 mg/dL Desirable: ... > 60 mg/dL *The National Cholesterol Education Program(NCEP) 22 Reference Guidelines*: Optimal:........... <100 mg/dL Near Optimal....... 100-129 mg/dL Borderline High.... 130-159 mg/dL High............... 160-189 mg/dL Very High.......... >=190 mg/dL * Source: National Cholesterol Education Program (NCEP) 23 E55.9 R19.7 I47.1 24 Note: Persistent reduction for 3 months or more in an eGFR <60 mL/min/1.73 m2 defines CKD. Patients with eGFR values >/=60 mL/min/1.73 m2 may also have CKD if evidence of persistent proteinuria is present. The original MDRD equation for estimated GFR is not valid for patients less than 18 years of age. Additional information may be found at www.kdoqi.org. 25 Values below the stated reference ranges of AST and ALT can be seen in normal populations. Clinical correlation is suggested. 26 Vitamin D deficiency has been defined by the [place] [employer] and an Endocrine Society practice guideline as a level of serum 25-OH vitamin D less than 20 ng/mL (1,2). The Endocrine Society went on to further define vitamin D insufficiency as a level between 21 and 29 ng/mL (2). 1. IOM ([place] [employer]). 2010. Dietary reference intakes for calcium and D. [place]: The National Academies Press. 2. Donita MF, Jacquie CARMEN, Frederick BHAT, et al. Evaluation, treatment, and prevention of vitamin D deficiency: an Endocrine Society clinical practice guideline. JCEM. 2010; 96(7):1911-30. Performed at: [address] [id number] Physician/Internist: Louann Lewis MD, Phone: [phone] 27 R19.4 28 Method: Sediplast Modified Westergren 29 Concentration Interpretation Follow-Up <16 - 50 ug/g Normal None >50 -120 ug/g Borderline Re-evaluate in 4-6 weeks >120 ug/g Abnormal Repeat as clinically indicated 30 Normal (<60 Droplets/HPF) 31 Normal (<100 Droplets/HPF) 32 INFCE Result Units: ug Elast./g Severe Pancreatic Insufficiency: <100 Moderate Pancreatic Insufficiency: 100 - 200 Normal: >200 Performed at: [address] [id number] Physician/Internist: Louann Lewis MD, Phone: [phone] Performed at: [address] [id number] Physician/Internist: Jacob Partida MD, Phone: [phone] 33 NO ENTERIC PATHOGENS ISOLATED 34 ................................................... 35 INCLUDES TESTING FOR SALMONELLA, SHIGELLA, AEROMONAS, 36 PLESIOMONAS, CAMPYLOBACTER, AND E. COLI 0157:H7 37 ................................................... 38 YERSINIA AND VIBRIO ARE NOT ROUTINELY SCREENED FOR AND 39 SHOULD BE REQUESTED SEPARATELY 40 SHIGA TOXIN 1 NOT DETECTED 41 SHIGA TOXIN 2 NOT DETECTED Method: ImmunoCard STAT/EHEC Rapid Immunochromatographic Assay 42 C-DIFF TOXIN B: NEGATIVE 027 NAP1 B1: NEGATIVE NOTE: IF REFLEX CULTURE FOR KLEBSIELLA OXYTOCA IS CLINICALLY INDICATED, PLEASE CONTACT THE [facility] ([phone]) WITHIN 3 DAYS OF THIS REPORT Testing Performed by: [place] [address] 43 NEGATIVE FOR CRYPTOSPORIDIUM SPECIFIC ANTIGEN 44 NEGATIVE FOR GIARDIA SPECIFIC ANTIGEN. The specimen will be held for 5 days. Additional testing may be performed upon request if the antigen tests are negative, and the patient is still symptomatic or has traveled to an endemic region. Method: Alere Quik Chek Rapid Membrane Enzyme Immunoassay 45 I42.1 M81.8 46 Note: Persistent reduction for 3 months or more in an eGFR <60 mL/min/1.73 m2 defines CKD. Patients with eGFR values >/=60 mL/min/1.73 m2 may also have CKD if evidence of persistent proteinuria is present. The original MDRD equation for estimated GFR is not valid for patients less than 18 years of age. Additional information may be found at www.kdoqi.org. 47 Reference Guidelines*: Desirable: ........... < 200 mg/dL Borderline High: ..... 200-239 mg/dL High: ................ >= 240 mg/dL * The National Cholesterol Education Program (NCEP) 48 Reference Guidelines*: Normal: ............. < 150 mg/dL Borderline High: .... 150-199 mg/dL High: ............... 200-499 mg/dL Very High: .......... > 500 mg/dL * Source: National Cholesterol Education Program (NCEP) 49 Reference Guidelines*: Low HDL: ..... < 40 mg/dL Normal: ..... 40-60 mg/dL Desirable: ... > 60 mg/dL *The National Cholesterol Education Program(NCEP) 50 Reference Guidelines*: Optimal:........... <100 mg/dL Near Optimal....... 100-129 mg/dL Borderline High.... 130-159 mg/dL High............... 160-189 mg/dL Very High.......... >=190 mg/dL * Source: National Cholesterol Education Program (NCEP) 51 Vitamin D deficiency has been defined by the [place] [employer] and an Endocrine Society practice guideline as a level of serum 25-OH vitamin D less than 20 ng/mL (1,2). The Endocrine Society went on to further define vitamin D insufficiency as a level between 21 and 29 ng/mL (2). 1. IOM ([place] [employer]). 2010. Dietary reference intakes for calcium and D. [place]: The National Academies Press. 2. Jacquie Mai, Frederick BHAT, et al. Evaluation, treatment, and prevention of vitamin D deficiency: an Endocrine Society clinical practice guideline. JCEM. 2010; 96(7):1911-30. Performed at: RN - [facility] [address] [id number] Physician/Internist: Louann Lewis MD, Phone: [phone] 52 Vitamin D deficiency has been defined by the [place] [employer] and an Endocrine Society practice guideline as a level of serum 25-OH vitamin D less than 20 ng/mL (1,2). The Endocrine Society went on to further define vitamin D insufficiency as a level between 21 and 29 ng/mL (2). 1. IOM ([place] [employer]). 2010. Dietary reference intakes for calcium and D. [place]: The National Academies Press. 2. Jacquie Mai, Frederick BHAT, et al. Evaluation, treatment, and prevention of vitamin D deficiency: an Endocrine Society clinical practice guideline. JCEM. 2010; 96(7):1911-30. Performed at: RN - [facility] [address] [id number] Physician/Internist: Louann Lewis MD, Phone: [phone] 53 Reference Guidelines*: Desirable: ........... < 200 mg/dL Borderline High: ..... 200-239 mg/dL High: ................ >= 240 mg/dL * The National Cholesterol Education Program (NCEP) 54 Reference Guidelines*: Normal: ............. < 150 mg/dL Borderline High: .... 150-199 mg/dL High: ............... 200-499 mg/dL Very High: .......... > 500 mg/dL * Source: National Cholesterol Education Program (NCEP) 55 Reference Guidelines*: Low HDL: ..... < 40 mg/dL Normal: ..... 40-60 mg/dL Desirable: ... > 60 mg/dL *The National Cholesterol Education Program(NCEP) 56 Reference Guidelines*: Optimal:........... <100 mg/dL Near Optimal....... 100-129 mg/dL Borderline High.... 130-159 mg/dL High............... 160-189 mg/dL Very High.......... >=190 mg/dL * Source: National Cholesterol Education Program (NCEP) 57 Note: Persistent reduction for 3 months or more in an eGFR <60 mL/min/1.73 m2 defines CKD. Patients with eGFR values >/=60 mL/min/1.73 m2 may also have CKD if evidence of persistent proteinuria is present. The original MDRD equation for estimated GFR is not valid for patients less than 18 years of age. Additional information may be found at www.kdoqi.org. 58 Note: Persistent reduction for 3 months or more in an eGFR <60 mL/min/1.73 m2 defines CKD. Patients with eGFR values >/=60 mL/min/1.73 m2 may also have CKD if evidence of persistent proteinuria is present. The original MDRD equation for estimated GFR is not valid for patients less than 18 years of age. Additional information may be found at www.kdoqi.org. 59 Elevated levels of HbA1c suggest the need for more aggressive treatment of glycemia. The [place] [employer] recommends that a primary goal of therapy should be a HbA1c of <7% and that physicians should re-evaluate the treatment regimen in patients with HbA1c values consistently >8%. 60 NOTE CHANGE IN B12 REFERENCE RANGE 61 Negative <5 Equivocal 5 - 9 Positive >9 62 Performed at: RN - [facility] [address] [id number] Physician/Internist: Louann Lewis MD, Phone: [phone] 63 A low TSH should not be the sole basis for diagnosing primary hyperthyroidism, or primary hypopituitary function. Additional tests are suggested for confirmation. 64 Vitamin D deficiency has been defined by the [place] [employer] and an Endocrine Society practice guideline as a level of serum 25-OH vitamin D less than 20 ng/mL (1,2). The Endocrine Society went on to further define vitamin D insufficiency as a level between 21 and 29 ng/mL (2). 1. IOM ([place] [employer]). 2010. Dietary reference intakes for calcium and D. [place]: The National Academies Press. 2. Donita MF, Jacquie NC, Frederick BHAT, et al. Evaluation, treatment, and prevention of vitamin D deficiency: an Endocrine Society clinical practice guideline. JCEM. 2010; 96(7):1911-30. Performed at: RN - [facility] [address] [id number] Physician/Internist: Louann Lewis MD, Phone: [phone] Procedures Date Code Description Status 07/14/2018 23455 EKG-Tracing And Report Completed 06/17/2018 [id number] Mammogram Completed 12/09/2017 10176 Echocardiogram Complete Completed 07/16/2017 79743 Colonoscopy With Biopsy Completed 05/27/2017 [id number] Mammogram Completed 05/13/2017 66680 EKG-Tracing And Report Completed 11/25/2016 59469509 Colonoscopy Completed 10/29/2016 71119 Echocardiogram Complete Completed 05/08/2016 95061056 Mammogram Completed 02/06/2016 68108 Event Monitor Inter/Review Only Completed 01/30/2016 91201 EKG-Tracing And Report Completed 01/24/2016 32199 Echocardiogram Complete Completed 05/24/2015 91020 Nerve Conduction 7-8 Studies Completed 05/24/2015 73228 Needle Electromyography Complete, Five Or More Muscles Completed Studied 01/17/2015 75029 EKG-Tracing And Report Completed 03/22/2014 [id number] Mammogram Completed 01/04/2014 76382 Echocardiogram Complete Completed 07/14/2013 09248 Colonoscopy Completed 06/29/2013 90433 Echocardiogram Complete Completed 02/10/2013 [id number] Mammogram Completed 12/30/2012 75043 Holter Monitor 24HR Inter/Report Completed 12/08/2012 21309 ECHO Transthoracic Inc Performance Continuous Completed Electrocardio 11/25/2012 [id number] Bone Mineral Density Test Completed 11/11/2012 98182 EKG-Tracing And Report Completed 11/11/2012 09467 EKG-Tracing And Report Completed 01/07/2012 47052 Anesthesia, Extraperitoneal Lower Abdomen Not Completed Otherwise Spec 01/01/2012 99375 EKG Interpretation And Report Only Completed 11/05/2011 99142598 Mammogram Completed 08/24/2010 02619803 Mammogram Completed 08/22/2009 07589356 Mammogram Completed Encounters Type Date Location Provider Dx Diagnosis Office Visit 06/16/2019 Primary Care Laurita, 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 9: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 Office MS Claudia, exam (general) [employer], CNM (routine) w/o abn findings E55.9 Vitamin [...] Lucero, I42.1 Obstructive Office MD hypertrophic cardiomyopathy F17.210 Nicotine dependence, cigarettes, uncomplicated E55.9 Vitamin D deficiency, unspecified E03.9 Hypothyroidism, unspecified Office Visit 07/14/2018 Cardiology Norma Last I42.1 Obstructive 9:20a Office CAROLINE Reese, hypertrophic [employer] cardiomyopathy I47.1 Supraventricular tachycardia Office Visit 07/09/2018 1:00p Primary Care Dianne Lucero, F17.210 Nicotine Office MD dependence, cigarettes, uncomplicated E55.9 Vitamin D deficiency, unspecified I42.1 Obstructive hypertrophic cardiomyopathy B07.0 Plantar wart Office Visit 01/20/2018 10:40a Primary Care Dianne Lucero, J01.90 Acute sinusitis, Office MD unspecified Z71.6 Tobacco abuse counseling Office Visit 12/16/2017 Cardiology Norma Last I42.1 Obstructive 9:20a Office CAROLINE Reese, hypertrophic [employer] cardiomyopathy I47.1 Supraventricular tachycardia F17.200 Nicotine dependence, [...] [place] I42.1 Obstructive 9:40a Office Bret Sadler, [facility] hypertrophic cardiomyopathy F17.210 Nicotine dependence, cigarettes, uncomplicated I47.1 Supraventricular tachycardia Office Visit 12/10/2016 9:20a Primary Care Dianne Lucero, R10.813 Right lower Office MD quadrant abdominal tenderness I42.1 Obstructive hypertrophic cardiomyopathy I47.1 Supraventricular tachycardia R20.2 Paresthesia of skin F17.210 Nicotine dependence, cigarettes, uncomplicated Z23 Encounter for immunization Office Visit 11/12/2016 Cardiology Norma Last I42.1 Obstructive 8:40a Office CAROLINE Reese, hypertrophic [employer] cardiomyopathy I47.1 Supraventricular tachycardia F17.200 Nicotine dependence, unspecified, uncomplicated Office Visit 10/15/2016 Cardiology Norma Last I42.1 Obstructive 8:40a Office CAROLINE Reese, hypertrophic [employer] cardiomyopathy I47.1 Supraventricular tachycardia F17.200 Nicotine dependence, unspecified, uncomplicated Office Visit 09/13/2016 2:20p Primary Care Dianne Lucero, J06.9 Acute upper Office MD respiratory infection, unspecified R05 Cough Office Visit 04/10/2016 Cardiology Norma Last I47.1 Supraventricular 8:30a Office CAROLINE Reese, tachycardia [employer] I42.1 Obstructive hypertrophic cardiomyopathy F17.200 Nicotine dependence, unspecified, uncomplicated Office Visit 03/12/2016 Cardiology Norma Last I47.1 Supraventricular 8:20a Office CAROLINE Reese, tachycardia [employer] I42.1 Obstructive hypertrophic cardiomyopathy Office Visit 01/30/2016 Cardiology Norma Last I42.1 Obstructive 9:00a Office CAROLINE Reese, hypertrophic [employer] cardiomyopathy I47.1 Supraventricular tachycardia R06.00 Dyspnea, unspecified Office Visit 12/05/2015 1:20p Primary Care Dianne Lucero, I42.1 Obstructive Office MD hypertrophic cardiomyopathy E73.9 Lactose intolerance, unspecified H93.13 Tinnitus, bilateral E07.9 Disorder of thyroid, unspecified Z23 Encounter for immunization Office Visit 01/17/2015 Cardiology Norma Last 425.11 Hypertrophic 8:40a Office CAROLINE Reese, Obstructive [employer] Cardiomyopathy 427.0 PSVT Paroxysmal Supraventricular Tachycardia Office Visit 01/06/2014 Cardiology Judit 425.11 Hypertrophic 9:10a Office Sam Sadler M.D., Obstructive FACC Cardiomyopathy 427.0 PSVT Paroxysmal Supraventricular Tachycardia Office Visit 07/06/2013 Cardiology Norma Last 425.11 Hypertrophic 8:40a Office CAROLINE Reese, Obstructive [employer] Cardiomyopathy 427.0 PSVT Paroxysmal Supraventricular Tachycardia Office Visit 04/23/2013 8:30a Surgical Office Mariano, 305.1 Tobacco Use Any Krause M.D. V76.51 Special Screening For Malignant Neoplasms Colon Office Visit 12/29/2012 Cardiology Judit, 425.11 Hypertrophic 10:20a Office Sam Sadler M.D., Obstructive FACC Cardiomyopathy Office Visit 11/11/2012 Cardiology Norma Last 786.05 Shortness Of Breath 9:45a Office CAROLINE Reese, [employer] 785.1 Palpitations Plan of Treatment Future Appointment(s):08/03/2019 10:00 am - Claudia Shay MS, [employer], CNM at Primary Care [id number]/03/2019 8:40 am - Norma Last, MSN, [employer] at Cardiology Office
[2019-08-13 09:11] VITALS: BP 159/83
[2019-08-13] MEDS ORDERED: Albuterol 2.5 MG/3 ML NEB.SOL* (0.083%) INH ONE (09:20)
--- NOTE | 2019-08-13 10:21 | UC ---
Respiratory Complaint HPI - HPI Summary HPI Summary: cough x 2 days cough is dry , chest congestion and tightness, wheezing sob, no fever , + body aches and chills worse with exertion , nothing makes if better no nasal congestion , no sore throat - History of Current Complaint Chief Complaint: UCGeneralIllness Stated Complaint: COUGH,CONGESTION,WHEEZING Time Seen by Provider: 08/13/19 09:06 Hx Obtained From: Patient Hx Last Menstrual Period: NONE ?: No Onset/Duration: Gradual Onset, Lasting Days - 2, Still Present Timing: Constant Severity Initially: Moderate Severity Currently: Moderate Pain Intensity: 7 Character: Cough: Nonproductive Aggravating Factors: Exertion, Deep Breaths Alleviating Factors: Nothing Associated Signs And Symptoms: Positive: Chills, Wheezing, URI. Negative: Fever - Allergies/Home Medications Allergies/Adverse Reactions: Allergies Allergy/AdvReac Type Severity Reaction Status Date / Time No Known Allergies Allergy Verified 02/21/19 07:22 Home Medications: Home Medications Losartan TAB* [Cozaar TAB*] 25 mg PO DAILY 08/13/19 [History Confirmed 08/13/19] PMH/Surg Hx/FS Hx/Imm Hx Endocrine History: Thyroid Disease, Hypothyroidism Cardiovascular History: Hypertension - Surgical History Surgical History: Yes Surgery Procedure, Year, and Place: tubal ligation. bladder mesh for urinary incontinence - Family History Known Family History: Positive: Cardiac Disease Negative: Respiratory Disease - Social History Alcohol Use: Rare Substance Use Type: None Smoking Status (MU): Light Every Day Tobacco Smoker Type: Cigarettes Amount Used/How Often: 1/2 PPD Length of Time of Smoking/Using Tobacco: Since Age 16 Have You Smoked in the Last Year: Yes Household Exposure Type: Cigarettes - Immunization History Most Recent Influenza Vaccination: no Most Recent Tetanus Shot: unknown Vaccination Up to Date: No Review of Systems All Other Systems Reviewed And Are Negative: Yes Constitutional: Positive: Negative Skin: Positive: Negative Eyes: Positive: Negative ENT: Positive: Negative Respiratory: Positive: Shortness Of Breath, Cough Is Patient Immunocompromised?: No Physical Exam Appearance: Well-Appearing, No Pain Distress, Well-Nourished Vital Signs: Initial Vital Signs Temp 98.5 F 08/13/19 09:06 Pulse 72 08/13/19 09:06 Resp 16 08/13/19 09:06 BP 159/83 08/13/19 09:06 Pulse Ox 96 08/13/19 09:06 Vital Signs Reviewed: Yes Eye Exam: Normal Eyes: Positive: Conjunctiva Clear ENT: Positive: Normal ENT inspection, Hearing grossly normal, Pharynx normal, Nasal congestion. Negative: Pharyngeal erythema, Tonsillar swelling, Tonsillar exudate Neck: Positive: Supple, Nontender, No Lymphadenopathy Respiratory: Positive: Chest non-tender, No accessory muscle use, Wheezing Cardiovascular: Positive: RRR, No Murmur, Pulses Normal Musculoskeletal Exam: Normal Neurological Exam: Normal Neurological: Positive: Alert Diagnostics - Radiology No standard instances Radiology Interpretation Completed By: Radiologist Summary of Radiographic Findings: chest xray : IMPRESSION: No active cardiopulmonary disease is noted. Respiratory Course/Dx - Differential Dx/Diagnosis Provider Diagnosis: Bronchitis Discharge ED - Sign-Out/Discharge Documenting (check all that apply): Patient Departure All imaging exams completed and their final reports reviewed: No Studies - Discharge Plan Condition: Stable Disposition: HOME Prescriptions: Azithromycin TAB* [Zithromax TAB (Z-CHARY) 250 mg #6 tabs] 2 tab PO .TODAY, THEN 1 DAILY #1 chary Codeine Phosphate/Guaifenesin [Guaifen-Codeine 100-10 mg/5 ml] 10 ml PO Q8H PRN #120 ml MDD 30 ml PRN Reason: Cough predniSONE [Prednisone 20 MG TAB] 20 mg PO BID #10 tablet Patient Education Materials: Acute Bronchitis (ED) Referrals: Dianne Lucero MD [Primary Care Provider] - 7 Days - Billing Disposition and Condition Condition: STABLE Disposition: Home
== END 2019-08-13 10:27 | disposition home or self-care (01) ==
LOC: UCCORT 08:50
DX: J40 Bronchitis, not specified as acute or chronic (principal); E03.9 Hypothyroidism, unspecified; I10 Essential (primary) hypertension; F17.210 Nicotine dependence, cigarettes, uncomplicated
CPT/HCPCS: 71046; 99212; G0463